=== PATIENT | female | born 1985 | race Caucasian/White ===

== ENCOUNTER 2022-07-01 08:35 | Inpatient (IN) ==
[2022-07-01] MEDS ORDERED: ONDANSETRON INJ 2 MG/ML 2 ML VIAL IV STA ×2 (08:50→11:15)
[2022-07-01] MEDS ORDERED: SODIUM CHLORIDE 0.9% 1000ML 1,000 ML IV STA (08:50)
[2022-07-01] MEDS: fentaNYL citrate 100 MCG/2 ML VIAL IV PRN ×2 (08:56→09:40)
--- NOTE | 2022-07-01 08:57 | Emergency Department Note ---
Impression & Plan Acute calculous cholecystitis, Right upper quadrant abdominal pain ED Provider Note NAME: FELICITA ENG AGE: 36 SEX: F : 1985 ARRIVES VIA: Walk-In INFORMANT: Patient, ED PROVIDER(S): Dudley Pascal DO CHIEF COMPLAINT: Abdominal pain HPI: The patient is a 36-year-old female who presented to the emergency department for an evaluation of abdominal pain. The patient has been having problems with abdominal pain intermittently over the course of the last month. She states that normally she gets this same pain in the upper abdomen and last approximately 1 hour. She started having the same pain last evening. She started having nausea and vomiting. The pain did not resolve in usual fashion so she presented to the emergency department today for further evaluation. She denies having any fevers. She denies having hematemesis. She has had no rectal bleeding. She states that she has noted the pain radiating to her back as well. ROS: See above HPI for pertinent positives & negatives. A total of 10 systems reviewed and were otherwise negative. PAST MEDICAL HISTORY: See Below PAST SURGICAL HISTORY: See Below FAMILY HISTORY: See Below SOCIAL HISTORY: See Below HOME MEDICATIONS: See Below ALLERGIES: See Below VITALS: See Below PHYSICAL EXAMINATION: GENERAL: The patient is awake and alert. She is very anxious appearing and appears to be in significant pain. EYES: The conjunctivae are clear. The pupils are round and reactive. EARS, NOSE, MOUTH AND THROAT: The nose is without any evidence of any deformity. NECK: The neck is nontender and supple. RESPIRATORY: Normal respiratory effort is noted there is no evidence of wheezing rhonchi or rales CARDIOVASCULAR: Regular rate and rhythm noted there no murmurs rubs or gallops normal S1 normal S2. GASTROINTESTINAL: The abdomen is mildly distended. The abdomen is soft. There is significant right upper quadrant tenderness to palpation. There is guarding in the right upper quadrant. MUSCULOSKELETAL/EXTREMITIES: There is no evidence of gross deformity full range of motion is noted in the hips and shoulders. SKIN: There is no obvious evidence of any rash. There are no petechiae, pallor or cyanosis noted. NEUROLOGIC: Patient is awake alert and oriented x3 MEDICAL DECISION MAKING: Patient is a 36-year-old female who presented to the emergency department for an evaluation of upper abdominal pain. The patient's had similar symptoms over the course the last few weeks but today was much more significant and did not resolve as the previous episodes did. Her history and physical exam appear to be consistent with gallbladder pathology. I discussed the patient's laboratory and radiographic studies with her. She was treated with IV fluids IV antiemetics and IV pain medication. She was somewhat improved on reevaluation. She was also treated with IV antibiotics after ultrasound appears to be consistent with calculus cholecystitis. I discussed the patient's condition with the on-call general surgical group. They have agreed to evaluate the patient in the emergency department for further management and disposition. Triage Nursing notes reviewed. Prior medical records reviewed Vital Signs: reviewed and remarkable for no significant abnormalities Differential diagnosis: Etiologies such as appendicitis, diverticulitis, obstruction, inflammatory bowel disease, renal colic, PUD, biliary pathology, pancreatitis, mesenteric ischemia, aortic pathology, infections, genitourinary, UTI, perforated viscus, as well as others were entertained. ER treatment provided: See below Diagnostics interpreted by me: ECG: none Cardiac Monitoring: An order was placed for continuous cardiac monitoring. The monitor shows a rate of 84 bpm with sinus rhythm. Laboratory studies: As stated above and show below. Imaging studies: See below. Radiographic imaging was reviewed by myself Consultation(s): I discussed this case with Katelin Martinez who is on-call for the general surgical group. They will evaluate the patient in the emergency department. Past Med/Surg History Medical History (Updated 07/01/22 @ 15:09 by Dudley Pascal DO) No pertinent past medical history Surgical History (Updated 07/01/22 @ 13:14 by Percy Saba MD) No significant past surgical history Social History Smoking Status: Current every day smoker Preferred Language: Upper Sorbian Feels Safe at Home: Yes Allergies Allergies Allergy/AdvReac Type Severity Reaction Status Date / Time No Known Allergies Allergy Verified 01/29/19 17:41 Home Meds Home Medications Medication Instructions Recorded Confirmed ibuprofen 200 mg tablet (Advil) 800 mg PO Q8H PRN Fever Or Pain 01/29/19 01/29/19 Previous Rx's Medication Instructions Recorded cyclobenzaprine 10 mg tablet 10 mg PO TID PRN muscle spasm #15 01/29/19 tabs hydrocodone 5 mg-acetaminophen 325 1 tab PO Q4H PRN pain #15 tabs 01/29/19 mg tablet ([place]) methylprednisolone 4 mg tablets in 4 mg PO UD #21 ea 01/29/19 a dose pack ([facility] ([place])) Results & Data (ED) Vital Signs Vital Signs - 24 hr 07/01/22 08:36 07/01/22 09:02 07/01/22 09:13 Temperature 36.2 C L Temperature Source Temporal Artery Scan Pulse Rate 89 74 Pulse Rate [Apical] Pulse Rate [Left Finger] Pulse Rhythm [Left Finger] Pulse Strength [Left Finger] Respiratory Rate 22 Respiratory Effort / Characteristics Non-Labored Spontaneous Respiratory Depth Normal Respiratory Pattern Blood Pressure 122/73 Blood Pressure [Left Arm] Blood Pressure [Right Arm] Blood Pressure Mean 89 Blood Pressure Mean [Left Arm] Blood Pressure Mean [Right Arm] Blood Pressure Position [Right Arm] Pulse Oximetry 99 99 Oxygen Delivery Method Room Air Room Air Sepsis New/Unexplained Change in Mental Status N/A Sepsis Action Taken by Nursing No Action Required 07/01/22 11:26 07/01/22 12:38 07/01/22 12:55 Temperature 37 C Temperature Source Oral Pulse Rate Pulse Rate [Apical] 68 72 Pulse Rate [Left Finger] 87 Pulse Rhythm [Left Finger] Regular Pulse Strength [Left Finger] Normal Respiratory Rate 16 16 20 Respiratory Effort / Characteristics Non-Labored Spontaneous Non-Labored Spontaneous Non-Labored Spontaneous Respiratory Depth Normal Normal Normal Respiratory Pattern Regular Blood Pressure Blood Pressure [Left Arm] 100/75 110/66 Blood Pressure [Right Arm] 131/73 Blood Pressure Mean Blood Pressure Mean [Left Arm] 83 80 Blood Pressure Mean [Right Arm] 92 Blood Pressure Position [Right Arm] Sitting Pulse Oximetry 98 98 94 Oxygen Delivery Method Room Air Room Air Room Air Sepsis New/Unexplained Change in Mental Status Sepsis Action Taken by Nursing 07/01/22 13:57 Temperature Temperature Source Pulse Rate Pulse Rate [Apical] Pulse Rate [Left Finger] 84 Pulse Rhythm [Left Finger] Regular Pulse Strength [Left Finger] Normal Respiratory Rate 22 Respiratory Effort / Characteristics Non-Labored Spontaneous Respiratory Depth Normal Respiratory Pattern Regular Blood Pressure Blood Pressure [Left Arm] Blood Pressure [Right Arm] 120/69 Blood Pressure Mean Blood Pressure Mean [Left Arm] Blood Pressure Mean [Right Arm] 86 Blood Pressure Position [Right Arm] Semi-fowlers Pulse Oximetry 98 Oxygen Delivery Method Room Air Sepsis New/Unexplained Change in Mental Status Sepsis Action Taken by [facility] Medications Current Medication List: was personally reviewed by me Laboratory Data Attestation: I reviewed the patient's lab results. 07/01/22 08:58 07/01/22 08:58 Lab Results 07/01/22 07/01/22 07/01/22 Range/Units 08:58 08:58 08:58 WBC 14.57 H (4.8-10.8) K/ul RBC 5.34 (4.20-5.40) M/uL Hgb 16.2 H (12.0-16.0) g/dl Hct 47.4 H (37.0-47.0) % MCV 88.8 (80.0-100.0) fL MCH 30.3 (25.0-34.0) pg MCHC 34.2 (32.0-36.0) g/dL RDW Std Deviation 41.3 (36.4-46.3) fL RDW Coeff of Leandro 12.7 (11.5-14.5) % Plt Count 344 (130-400) K/uL MPV 10.3 (9.4-12.4) fL Immature Gran % (Auto) 0.3 % Neut % (Auto) 76.8 % Lymph % (Auto) 17.5 % Hopkins % (Auto) 4.0 % Eos % (Auto) 0.9 % Baso % (Auto) 0.5 % Neut # (Auto) 11.20 H (1.40-6.50) K/uL Lymph # (Auto) 2.55 (1.2-3.4) K/uL Hopkins # (Auto) 0.58 (0.11-0.59) K/uL Eos # (Auto) 0.13 (0-0.50) K/uL Baso # (Auto) 0.07 (0-0.2) K/uL Immature Gran # (Auto) 0.04 (0.01-0.20) K/uL Sodium 137 (136-145) mmol/L Potassium 3.9 (3.5-5.1) mmol/L Chloride 106 (98-107) mmol/L Carbon Dioxide 26 (21-32) mmol/L Anion Gap 5 (3-11) BUN 7 (6-23) mg/dl Creatinine 0.73 (0.6-1.2) mg/dl Est Cr Clr Drug Dosing 114.3 ml/min Est GFR ( Amer) 121.9 ml/min Est GFR (Non-Af Amer) 105.2 ml/min BUN/Creatinine Ratio 9.6 L (10-20) Glucose 122 H (70-99(Fasting)) mg/dl Calcium 10.2 H (8.5-10.1) mg/dl Total Bilirubin 0.6 (0.2-1.0) mg/dl AST 15 (13-39) U/L ALT 21 (7-52) U/L Alkaline Phosphatase 132 H (34-104) U/L Total Protein 7.7 (6.0-8.3) gm/dl Albumin 4.5 (3.4-5.0) gm/dl Globulin 3.2 (2.5-4.0) gm/dl Albumin/Globulin Ratio 1.4 (0.9-2) Lipase 8 L (11-82) U/L HCG, Qual Negative (Negative) SARS-CoV-2, RNA, NAAT (NEGATIVE) 07/01/22 Range/Units 10:55 WBC (4.8-10.8) K/ul RBC (4.20-5.40) M/uL Hgb (12.0-16.0) g/dl Hct (37.0-47.0) % MCV (80.0-100.0) fL MCH (25.0-34.0) pg MCHC (32.0-36.0) g/dL RDW Std Deviation (36.4-46.3) fL RDW Coeff of Leandro (11.5-14.5) % Plt Count (130-400) K/uL MPV (9.4-12.4) fL Immature Gran % (Auto) % Neut % (Auto) % Lymph % (Auto) % Hopkins % (Auto) % Eos % (Auto) % Baso % (Auto) % Neut # (Auto) (1.40-6.50) K/uL Lymph # (Auto) (1.2-3.4) K/uL Hopkins # (Auto) (0.11-0.59) K/uL Eos # (Auto) (0-0.50) K/uL Baso # (Auto) (0-0.2) K/uL Immature Gran # (Auto) (0.01-0.20) K/uL Sodium (136-145) mmol/L Potassium (3.5-5.1) mmol/L Chloride (98-107) mmol/L Carbon Dioxide (21-32) mmol/L Anion Gap (3-11) BUN (6-23) mg/dl Creatinine (0.6-1.2) mg/dl Est Cr Clr Drug Dosing ml/min Est GFR ( Amer) ml/min Est GFR (Non-Af Amer) ml/min BUN/Creatinine Ratio (10-20) Glucose (70-99(Fasting)) mg/dl Calcium (8.5-10.1) mg/dl Total Bilirubin (0.2-1.0) mg/dl AST (13-39) U/L ALT (7-52) U/L Alkaline Phosphatase (34-104) U/L Total Protein (6.0-8.3) gm/dl Albumin (3.4-5.0) gm/dl Globulin (2.5-4.0) gm/dl Albumin/Globulin Ratio (0.9-2) Lipase (11-82) U/L HCG, Qual (Negative) SARS-CoV-2, RNA, NAAT NEGATIVE (NEGATIVE) Administered Medications Fentanyl Citrate (Fentanyl Citrate 100 Mcg/2 Ml Vial) 50 mcg IV Q15M PRN PRN Reason: Pain Stop: 07/15/22 08:49 Last Admin: 07/01/22 09:40 Dose: 50 mcg Documented By: Admin: 07/01/22 08:56 Dose: 50 mcg Documented By: PRATIK Hydromorphone HCl (Hydromorphone Inj 0.5 Mg/0.5 Ml Syr) 0.5 mg IV Q15M PRN PRN Reason: Pain Stop: 07/15/22 10:45 Last Admin: 07/01/22 12:00 Dose: 0.5 mg Documented By: Admin: 07/01/22 10:53 Dose: 0.5 mg Documented By: NMS Discontinued Medications Hydromorphone HCl (Hydromorphone Inj 0.5 Mg/0.5 Ml Syr) 0.5 mg IV NOW STA Stop: 07/01/22 13:48 Last Admin: 07/01/22 13:48 Dose: 0.5 mg Documented By: MG Sodium Chloride (Nss 1000ml) 1,000 mls @ 999 mls/hr IV .Q1H1M STA Stop: 07/01/22 09:50 Last Infusion: 07/01/22 10:11 Dose: 0 mls/hr Documented By: Admin: 07/01/22 08:56 Dose: 999 mls/hr Documented By: PRATIK Piperacillin Sod/Tazobactam Sod (Zosyn) 4.5 gm in 120 mls @ 240 mls/hr IV NOW ONE Stop: 07/01/22 11:16 Last Infusion: 07/01/22 11:26 Dose: 0 mls/hr Documented By: Admin: 07/01/22 10:53 Dose: 240 mls/hr Documented By: DORINDA Ondansetron HCl (Ondansetron Inj 2 Mg/Ml 2 Ml Vial) 4 mg IV NOW STA Stop: 07/01/22 08:51 Last Admin: 07/01/22 08:56 Dose: 4 mg Documented By: PRATIK Ondansetron HCl (Ondansetron Inj 2 Mg/Ml 2 Ml Vial) 4 mg IV NOW STA Stop: 07/01/22 11:16 Last Admin: 07/01/22 11:27 Dose: 4 mg Documented By: DORINDA Imaging Data Attestation: I personally reviewed and interpreted this imaging study as follows: My Impression: 1 view chest x-ray and KUB were obtained in the emergency department. My interpretation is no free air, no definite infiltrate, final report pending. Radiologist's Impression: Chest X-Ray 07/01/22 08:50 SINGLE VIEW CHEST CLINICAL HISTORY: Upper abdominal pain. FINDINGS: An AP, portable, upright chest radiograph is obtained. No prior studies are available for comparison at the time of dictation. The cardiomedia stinal silhouette is unremarkable. The lungs and pleural spaces are clear. No pneumothorax is seen. The bony thorax is grossly intact. IMPRESSION: No active disease in the chest. ACT 112: Negative or not required by law. Electronically signed by: Nathan Jay M.D. 07/01/2022 9:44 AM Gallbladder Ultrasound 07/01/22 08:50 ULTRASOUND RIGHT UPPER QUADRANT ABDOMEN CLINICAL HISTORY: Upper abdominal pain. COMPARISON STUDY: Abdominal radiograph dated 07/01/2022. TECHNIQUE: Real-time, grayscale, and color flow sonography of the right upper quadrant of the abdomen was performed. Images are reviewed in the transverse and longitudinal planes. FINDINGS: Liver: The liver is normal in size and echotexture. There is no intrahepatic biliary ductal dilatation. The main portal vein is patent. Gallbladder: There are numerous shadowing gallstones, with the largest stone measuring up to 1.6 cm. The gallbladder wall is top normal in thickness measuring up to 3 mm and the gallbladder is distended. No pericholecystic fluid is seen. A sonographic Chavez's sign is reportedly present. The common bile duct measures up to 0.4 cm in diameter. Pancreas: Visualized portions of the pancreatic head and body are normal in appearance. The splenic vein is patent. Right kidney: Survey images of the right kidney demonstrate normal size and echotexture. There is no hydronephrosis. Ascites: None. IMPRESSION: Cholelithiasis within a distended gallbladder. A sonographic Chavez's sign is reportedly positive and findings are suspicious for acute cholecystitis. Surgical assessment is advised. ACT 112: Negative or not required by law. Electronically signed by: Nathan Jay M.D. 07/01/2022 10:43 AM KUB X-Ray 07/01/22 08:50 KUB HISTORY: Acute right upper quadrant abdominal pain upper abd pain COMPARISON: None. FINDINGS: The bowel gas pattern is non-obstructive. Probable pill fragment within the descending colon. There is no organomegaly. No renal calculi. No ureteral calculi. No pneumoperitoneum or pneumatosis. No fracture. IMPRESSION: Nonobstructive bowel gas pattern. ACT 112: Negative or not required by law. The above report was generated using voice recognition software. It may contain grammatical, syntax or spelling errors. Electronically signed by: Shane Ibanez M.D. 07/01/2022 9:50 AM Discharge Plan Visit Data Chief Complaint: Pain (Generalized) Stated Complaint: ABD PAIN, SHOULDER BLADE PAIN, VOMITING ED Provider: Dudley Pascal Discharge Problem: Acute calculous cholecystitis, Right upper quadrant abdominal pain Patient Disposition: Being Evaluated by Surgeon Discharge Instructions Interventions: ED Discharge Assessment Last Done: 07/01/22 12:45
[2022-07-01 09:20] LABS: Basophils # (auto) 0.07 K/uL (0-0.2); Basophils % (auto) 0.5 %; Eosinophils # (auto) 0.13 K/uL (0-0.50); Eosinophils % (auto) 0.9 %; Hematocrit (blood only) 47.4 % (37.0-47.0); Hemoglobin 16.2 g/dl (12.0-16.0); Immature Granulocytes # (auto) 0.04 K/uL (0.01-0.20); Immature Granulocytes % (auto) 0.3 %; Lymphocytes # (auto) 2.55 K/uL (1.2-3.4); Lymphocytes % (auto) 17.5 %; Mean Corpuscular Hemoglobin 30.3 pg (25.0-34.0); Mean Corpuscular Hgb Conc 34.2 g/dL (32.0-36.0); Mean Corpuscular Volume 88.8 fL (80.0-100.0); Mean Platelet Volume 10.3 fL (9.4-12.4); Monocytes # (auto) 0.58 K/uL (0.11-0.59); Neutrophils % (auto) 76.8 %; Platelet Count 344 K/uL (130-400); RDW Coefficient of Variation 12.7 % (11.5-14.5); RDW Standard Deviation 41.3 fL (36.4-46.3); Red Blood Count 5.34 M/uL (4.20-5.40); White Blood Count 14.57 K/ul (4.8-10.8)
[2022-07-01 09:41] LABS: Pregnancy Test, Serum Negative (Negative)
[2022-07-01 09:44] LABS: Albumin Globulin Ratio 1.4 (0.9-2); Albumin Level 4.5 gm/dl (3.4-5.0); BUN Creatinine Ratio 9.6 (10-20); Bilirubin,Total 0.6 mg/dl (0.2-1.0); Calcium 10.2 mg/dl (8.5-10.1); Creatinine Clr Calc Pharmacy 114.3 ml/min; Est GFR (African American) 121.9 ml/min; Est GFR (Non-African American) 105.2 ml/min; Globulin 3.2 gm/dl (2.5-4.0); Potassium 3.9 mmol/L (3.5-5.1); Total Protein 7.7 gm/dl (6.0-8.3)
--- NOTE | 2022-07-01 09:46 | XRay Report ---
SINGLE VIEW CHEST CLINICAL HISTORY: Upper abdominal pain. FINDINGS: An AP, portable, upright chest radiograph is obtained. No prior studies are available for c omparison at the time of dictation. The cardiomediastinal silhouette is unremarkable. The lungs and p leural spaces are clear. No pneumothorax is seen. The bony thorax is grossly intact. IMPRESSION: No active disease in the chest. ACT 112: Negative or not required by law. Electronically signed by: Nathan Jay M.D. 07/01/2022 9:44 AM
--- NOTE | 2022-07-01 09:52 | XRay Report ---
KUB HISTORY: Acute right upper quadrant abdominal pain upper abd pain COMPARISON: None. FINDINGS: The bowel gas pattern is non-obstructive. Probable pill fragment within the descending colo n. There is no organomegaly. No renal calculi. No ureteral calculi. No pneumoperitoneum or pneumatos is. No fracture. IMPRESSION: Nonobstructive bowel gas pattern. ACT 112: Negative or not required by law. The above report was generated using voice recognition software. It may contain grammatical, syntax o r spelling errors. Electronically signed by: Shane Ibanez M.D. 07/01/2022 9:50 AM
--- NOTE | 2022-07-01 10:44 | Ultrasound Report ---
ULTRASOUND RIGHT UPPER QUADRANT ABDOMEN CLINICAL HISTORY: Upper abdominal pain. COMPARISON STUDY: Abdominal radiograph dated 07/01/2022. TECHNIQUE: Real-time, grayscale, and color flow sonography of the right upper quadrant of the abdomen was performed. Images are reviewed in the transverse and longitudinal planes. FINDINGS: Liver: The liver is normal in size and echotexture. There is no intrahepatic biliary ductal dilatatio n. The main portal vein is patent. Gallbladder: There are numerous shadowing gallstones, with the largest stone measuring up to 1.6 cm. The gallbladder wall is top normal in thickness measuring up to 3 mm and the gallbladder is distended . No pericholecystic fluid is seen. A sonographic Chavez's sign is reportedly present. The common geremias e duct measures up to 0.4 cm in diameter. Pancreas: Visualized portions of the pancreatic head and body are normal in appearance. The splenic v ein is patent. Right kidney: Survey images of the right kidney demonstrate normal size and echotexture. There is no hydronephrosis. Ascites: None. IMPRESSION: Cholelithiasis within a distended gallbladder. A sonographic Chavez's sign is reportedl y positive and findings are suspicious for acute cholecystitis. Surgical assessment is advised. ACT 112: Negative or not required by law. Electronically signed by: Nathan Jay M.D. 07/01/2022 10:43 AM
[2022-07-01] MEDS ORDERED: PIPERACILLIN/TAZOBACTAM 4.5 GM/120 ML BAG IV ONE (10:47)
[2022-07-01] MEDS: HYDROmorphone INJ 0.5 MG/0.5 ML SYR IV PRN ×2 (10:53→12:00)
[2022-07-01] MEDS ORDERED: ONDANSETRON INJ 2 MG/ML 2 ML VIAL ONE ×2 (12:54→15:03)
[2022-07-01] MEDS ORDERED: MIDAZOLAM HCL 1 MG/ML 2ML VIAL ONE (12:54)
[2022-07-01] MEDS ORDERED: PROPOFOL IV EMULSION 10 MG/ML 20 ML VIAL IV ONE (12:54)
[2022-07-01] MEDS ORDERED: DEXAMETHASONE SOD INJ 4 MG/ML VIAL ONE (12:54)
[2022-07-01] MEDS ORDERED: NEOSTIGMINE METHYLSULFATE 1 MG/ML 10ML VIAL ONE (12:54)
[2022-07-01] MEDS ORDERED: fentaNYL citrate 100 MCG/2 ML VIAL ONE (12:54)
[2022-07-01] MEDS ORDERED: GLYCOPYRROLATE 0.2 MG/ML VIAL ONE ×2 (12:54→15:03)
[2022-07-01] MEDS ORDERED: ROCURONIUM BROMIDE 10 MG/ML 5 ML VIAL IV ONE (12:55)
[2022-07-01] MEDS ORDERED: LIDOCAINE 2% MPF LOCAL 5 ML VIAL INFIL ONE (12:55)
[2022-07-01] MEDS ORDERED: LARYING-O-JET KIT (LTA) ONE (12:55)
--- NOTE | 2022-07-01 13:14 | Anesthesiology Consultation ---
Date of Service July 01, 2022 Assessment & Plan (1) Encounter for pre-operative examination: Chart Review Chart Review: Acceptable Risk for Surgery History Surgery Operation Date: 07/01/22 14:00 Proposed Procedures p Laparoscopic Cholecystectomy - Jessica Briceno MD Height/Weight Height: 5 ft 7 in Weight: 79.2 kg Allergies Allergy/AdvReac Type Severity Reaction Status Date / Time No Known Allergies Allergy Verified 01/29/19 17:41 Medications Home Medications Medication Instructions Recorded Confirmed Last Taken cyclobenzaprine 10 mg tablet 10 mg PO TID PRN muscle spasm #15 01/29/19 Unknown tabs hydrocodone 5 mg-acetaminophen 325 1 tab PO Q4H PRN pain #15 tabs 01/29/19 Unknown mg tablet ([place]) ibuprofen 200 mg tablet (Advil) 800 mg PO Q8H PRN Fever Or Pain 01/29/19 01/29/19 Unknown methylprednisolone 4 mg tablets in 4 mg PO UD #21 ea 01/29/19 Unknown a dose pack ([employer] ([place])) Active Medications Generic Name Dose Route Start Last Admin Trade Name Freq PRN Reason Stop Dose Admin Fentanyl Citrate 50 mcg 07/01/22 08:50 07/01/22 09:40 Fentanyl Citrate 100 Mcg/2 Ml Vial IV 07/15/22 08:49 50 mcg Q15M PRN Administration Pain Hydromorphone HCl 0.5 mg 07/01/22 10:46 07/01/22 12:00 Hydromorphone Inj 0.5 Mg/0.5 Ml Syr IV 07/15/22 10:45 0.5 mg Q15M PRN Administration Pain NPO Date Last Intake of Fluids: 06/30/22 Time Last Intake of Fluids: 23:45 Date Last Intake of Solids: 06/30/22 Time Last Intake of Solids: 17:00 Past Medical History Medical History (Updated 07/01/22 @ 13:14 by Percy Saba MD) No pertinent past medical history Past Surgical History Surgical History (Updated 07/01/22 @ 13:14 by Percy Saba MD) No significant past surgical history Social History Smoking Status: Current every day smoker Physical Exam Vital Signs Last Vital Signs Temp 37 C 07/01/22 12:55 Pulse 87 07/01/22 12:55 Resp 20 07/01/22 12:55 BP 131/73 07/01/22 12:55 Pulse Ox 94 07/01/22 12:55 O2 Del Method Room Air 07/01/22 12:55 Testing Laboratory Results 07/01/22 08:58 07/01/22 08:58
--- NOTE | 2022-07-01 13:46 | Surgery Consultation ---
Date of Consultation July 01, 2022 Assessment & Plan (1) Acute cholecystitis due to biliary calculus: pt is a 36 year-old female who presents to ER with RUQ pain, IMP: acute cholecystitis, cholelithiasis, plan, I recommend to do laparoscopic cholecystectomy, possible open or cholangiogram, D/W benefits, risks and alternatives of the surgery, the risks - infection, bleeding, injury other organs, biliary leak, may need ERCP, incisional hernia, pt understood, she agreed with surgery, she signed informed consent, I answered all questions, pre-op iv antibiotic, History of Present Illness Reason for Consultation: acute cholecystitis History of Present Illness [facility], [id number] Emergency Department Note Signed History of Present Illness General Chief complaint: Back Injury/Pain Stated complaint: BACK PAIN History of Present Illness Maximum Pain Intensity: 5 This patient is a 33-year-old female who presents ambulatory to the emergency department for evaluation of low back pain that occurred yesterday. Patient was shaving her legs and bending over when she felt intense pain in her lower back. The pain is sharp, stabbing in nature. It does not radiate anywhere. She denies any numbness, tingling or weakness into her extremities. No new urinary or bowel incontinence. No history of back problems. The patient has tried ibuprofen with minimal pain relief. I ( Jessica Briceno MD ) got a call for consult acute cholecystitis and gallstone, I reviewed pt's H/P, labs U/S study with pt. Home Medications Home Medications Medication Instructions Recorded Confirmed Type cyclobenzaprine 10 mg PO TID PRN #15 tab 01/29/19 Rx hydrocodone-acetaminophen [[place]] 1 tab PO Q4H PRN #15 tab 01/29/19 Rx ibuprofen [Advil] 800 mg PO Q8H PRN 01/29/19 01/29/19 History methylprednisolone [Medrol (Geo)] 4 mg PO UD #21 ea 01/29/19 Rx Allergies Allergy/AdvReac Type Severity Reaction Status Date / Time No Known Allergies Allergy Verified 01/29/19 17:41 Past Med/Surg History Medical History No pertinent past medical history Social History Feels Safe at Home: Yes Smoking Status: Current some day smoker Review of Systems A total of 6 systems reviewed and were otherwise negative Allergies Allergy/AdvReac Type Severity Reaction Status Date / Time No Known Allergies Allergy Verified 01/29/19 17:41 Home Medications Medication Instructions Recorded Confirmed Type cyclobenzaprine 10 mg tablet 10 mg PO TID PRN muscle spasm #15 01/29/19 Rx tabs hydrocodone 5 mg-acetaminophen 325 1 tab PO Q4H PRN pain #15 tabs 01/29/19 Rx mg tablet ([place]us[place]) ibuprofen 200 mg tablet (Advil) 800 mg PO Q8H PRN Fever Or Pain 01/29/19 01/29/19 History methylprednisolone 4 mg tablets in 4 mg PO UD #21 ea 01/29/19 Rx a dose pack (Medrol (Geo)) Patient History Medical History (Updated 07/01/22 @ 13:48 by Jessica Briceno MD) No pertinent past medical history Surgical History (Updated 07/01/22 @ 13:14 by Percy Saba MD) No significant past surgical history Social History Smoking Status: Current every day smoker Preferred Language: American Feels Safe at Home: Yes Review of Systems Constitutional: as per Subjective / HPI Eyes: as per Subjective / HPI Respiratory: as per Subjective / HPI Cardiovascular: as per Subjective / HPI Gastrointestinal: as per Subjective / HPI Genitourinary: as per Subjective / HPI Neurologic: as per Subjective / HPI Psychiatric: as per Subjective / HPI Endocrine: as per Subjective / HPI Hematologic / Lymphatic: as per Subjective / HPI Physical Exam Constitutional: WD/WN, vitals as above Eyes: PERRL, conjunctivae normal, anicteric sclerae Neck: trachea midline, no thyromegaly Respiratory: normal respiratory effort, lungs clear to auscultation Cardiovascular: RRR, no murmur, no edema Gastrointestinal (Abdomen): soft, tenderness at RUQ, no rebound pain, no distend, BS +, Musculoskeletal: no cyanosis or clubbing, extremities motor strength 5/5 Neurologic: patellar DTR's 2+ bilat, sensation intact Psychiatric: A+Ox3, euthymic affect Results & Data ([facility]) Vital Signs (Past 12 Hours) Vital Signs Temp Pulse Pulse Pulse Resp BP BP 07/01/22 12:55 37 C 87 20 07/01/22 12:38 72 16 110/66 07/01/22 11:26 68 16 100/75 07/01/22 09:13 74 07/01/22 09:02 07/01/22 08:36 36.2 C L 89 22 122/73 BP Pulse Ox O2 Del Method 07/01/22 12:55 131/73 94 Room Air 07/01/22 12:38 98 Room Air 07/01/22 11:26 98 Room Air 07/01/22 09:13 07/01/22 09:02 99 Room Air 07/01/22 08:36 99 Room Air Laboratory Results Abnormal lab results 07/01/22 07/01/22 Range/Units 08:58 08:58 WBC 14.57 H (4.8-10.8) K/ul Hgb 16.2 H (12.0-16.0) g/dl Hct 47.4 H (37.0-47.0) % Neut # (Auto) 11.20 H (1.40-6.50) K/uL BUN/Creatinine Ratio 9.6 L (10-20) Glucose 122 H (70-99(Fasting)) mg/dl Calcium 10.2 H (8.5-10.1) mg/dl Alkaline Phosphatase 132 H (34-104) U/L Lipase 8 L (11-82) U/L Diagnostic Findings ULTRASOUND RIGHT UPPER QUADRANT ABDOMEN CLINICAL HISTORY: Upper abdominal pain. COMPARISON STUDY: Abdominal radiograph dated 07/01/2022. TECHNIQUE: Real-time, grayscale, and color flow sonography of the right upper quadrant of the abdomen was performed. Images are reviewed in the transverse and longitudinal planes. FINDINGS: Liver: The liver is normal in size and echotexture. There is no intrahepatic biliary ductal dilatation. The main portal vein is patent. Gallbladder: There are numerous shadowing gallstones, with the largest stone measuring up to 1.6 cm. The gallbladder wall is top normal in thickness measuring up to 3 mm and the gallbladder is distended. No pericholecystic fluid is seen. A sonographic Chavez's sign is reportedly present. The common bile duct measures up to 0.4 cm in diameter. Pancreas: Visualized portions of the pancreatic head and body are normal in appearance. The splenic vein is patent. Right kidney: Survey images of the right kidney demonstrate normal size and echotexture. There is no hydronephrosis. Ascites: None. IMPRESSION: Cholelithiasis within a distended gallbladder. A sonographic Chavez's sign is reportedly positive and findings are suspicious for acute cholecystitis. Surgical assessment is advised. ACT 112: Negative or not required by law.
[2022-07-01] MEDS ORDERED: HYDROmorphone INJ 0.5 MG/0.5 ML SYR IV STA (13:47)
--- NOTE | 2022-07-01 13:51 | History & Physical Bridge Note ---
Date of Service July 01, 2022 History & Physical Bridge Note I have examined the patient, reviewed the History & Physical and in the interval since the performance of the History & Physical I have noted the following changes of clinical significance: no changes noted
[2022-07-01] MEDS ORDERED: BUPIVACAINE 0.5 % 5 MG/1 ML MPF 30ML VIAL ONE (13:59)
[2022-07-01] MEDS ORDERED: LIDOCAINE 1% LOCAL 20 ML VIAL ONE (13:59)
[2022-07-01] MEDS ORDERED: KETOROLAC 30 MG/ML VIAL ONE (15:03)
[2022-07-01] MEDS ORDERED: HYDROmorphone INJ 2 MG/ML SYR/VIAL IV PRN (15:13)
[2022-07-01] MEDS ORDERED: ePHEDrine sulfate 50 MG/ML AMP IV PRN (15:13)
[2022-07-01] MEDS ORDERED: ATROPINE SULFATE 0.1 MG/ML 10ML SYR IV PRN (15:13)
[2022-07-01] MEDS ORDERED: ONDANSETRON INJ 2 MG/ML 2 ML VIAL IV PRN (15:13)
--- NOTE | 2022-07-01 15:20 | Post Operative Brief Note ---
Immediate Post Op Note v1 Date of Surgery July 01, 2022 Pre & Post Diagnosis Operation Date: 07/01/22 14:00 Pre-Op Diagnosis: acute cholecystitis, cholelithiasis Post-Op Diagnosis: acute cholecystitis, cholelithiasis I identified the patient and participated in the time-out.: Yes Procedure Operation Date: 07/01/22 14:00 Actual Procedures p Laparoscopic Cholecystectomy(Not Applicable) - Jessica Briceno MD Surgeon Jessica Briceno MD [employer] [place] Estimated Blood Loss 10 Findings Consistent with Post-Op Diagnosis Fluids 1500ml Specimens gallbladder Anesthesia Type General Complications none Disposition Accompanied Patient To Recovery: Yes
[2022-07-01] MEDS ORDERED: CYCLOBENZAPRINE HCL 10 MG TAB PO PRN (16:51)
[2022-07-01] MEDS ORDERED: IBUPROFEN 800 MG TAB PO PRN (16:51)
[2022-07-01] MEDS ORDERED: HYDROCODONE/ACETAMOPHEN 5/325MG TAB PO PRN ×2 (16:51→18:41)
[2022-07-01] MEDS ORDERED: HYDROmorphone INJ 0.5 MG/0.5 ML SYR IV PRN (16:51)
[2022-07-01] MEDS ORDERED: oxyCODONE/ACETAMINOPHEN 5mg/325mg TAB PO PRN (16:51)
[2022-07-01] MEDS: LACTATED RINGER'S 1,000 ML IV SCH (17:27)
[2022-07-01] MEDS ORDERED: methylPREDNISolone 4 MG TAB PO SCH ×2 (18:00→21:00)
[2022-07-01] MEDS: PIPERACILLIN/TAZOBACTAM 3.375 GM in DEXTROSE 5% 100 ML IV SCH (18:20)
--- NOTE | 2022-07-01 20:05 | Anesthesiology Progress Note ---
Date of Service July 01, 2022 Anesthesia Post Procedure Vital Signs Vital Signs: Temp Pulse Pulse Pulse Pulse Resp BP 07/01/22 18:55 36.8 C 74 16 07/01/22 17:45 36.9 C 70 16 07/01/22 17:15 36.8 C 75 16 07/01/22 16:45 37 C 86 16 07/01/22 16:40 85 20 07/01/22 16:30 77 16 07/01/22 16:20 36.2 C L 74 14 07/01/22 16:10 75 12 07/01/22 16:00 84 14 07/01/22 15:50 86 18 07/01/22 15:44 36.0 C L 104 H 16 07/01/22 13:57 84 22 07/01/22 12:55 37 C 87 20 07/01/22 12:38 72 16 07/01/22 11:26 68 16 07/01/22 09:13 74 07/01/22 09:02 07/01/22 08:36 36.2 C L 89 22 122/73 BP BP Pulse Ox O2 Del Method O2 Flow Rate 07/01/22 18:55 121/78 96 Room Air 07/01/22 17:45 114/72 94 Room Air 07/01/22 17:15 131/87 94 Room Air 07/01/22 16:45 126/67 95 Room Air 07/01/22 16:40 121/85 96 Room Air 07/01/22 16:30 130/80 98 Room Air 07/01/22 16:20 105/69 94 Room Air 07/01/22 16:10 104/61 96 Room Air 07/01/22 16:00 109/63 94 Room Air 07/01/22 15:50 127/86 96 Oxymask 6 07/01/22 15:44 126/80 97 Oxymask 9 07/01/22 13:57 120/69 98 Room Air 07/01/22 12:55 131/73 94 Room Air 07/01/22 12:38 110/66 98 Room Air 07/01/22 11:26 100/75 98 Room Air 07/01/22 09:13 07/01/22 09:02 99 Room Air 07/01/22 08:36 99 Room Air Pain Intensity Right Upper Abdomen: Pain Intensity: 3 Transfer of Care Handoff Completed per policy Notes Mental Status: alert / awake / arousable and participated in evaluation Patient Amnestic to Procedure: Yes Nausea / Vomiting: adequately controlled Pain: adequately controlled Airway Patency, RR, SpO2: stable & adequate BP & HR: stable & adequate Hydration State: stable & adequate Anesthetic Complications: no major complications apparent and Pt Satisfied with anesthetic care
--- NOTE | 2022-07-02 00:05 | Operative Report (OR) ---
DATE OF PROCEDURE: 07/01/2022 PREOPERATIVE DIAGNOSES: Acute cholecystitis, cholelithiasis. POSTOPERATIVE DIAGNOSES: Acute cholecystitis, cholelithiasis. OPERATION: Laparoscopic cholecystectomy. SURGEON: Jessica Briceno MD. [employer] FACER: Katelin Dai PA-C. ANESTHESIA: General. ESTIMATED BLOOD LOSS: About 10 mL FINDINGS: Acute cholecystitis, cholelithiasis. COMPLICATIONS: None. INDICATIONS FOR THE PROCEDURE: This is a 36-year-old female who presented with symptomatic acute cho lecystitis with cholelithiasis. I recommended to do laparoscopic cholecystectomy, possible open, pos sible cholangiogram. I did talk to the patient about the benefits, risks, alternate procedure. I in dicated the risks may include, but not limited to, such as bleeding, infection, injury to other organ s, bile leak, may need ERCP, incisional hernia, injury to common bile duct. The patient understands. She signed informed consent and I answered all questions. DETAILS OF PROCEDURE: After we identified the patient and verified the procedure, we brought the pat ient to the OR, put the patient in the supine position on the OR table. The patient received SCD on bilateral legs to prevent DVT. Also, the patient received 3.375 grams of Zosyn IV for prophylactic a ntibiotic. The patient received general anesthesia without difficulty. The abdomen was prepped and draped in routine sterile fashion. After timeout, I injected the local anesthesia by using 1% lidoca ine mixed with 0.5% Marcaine just above the umbilicus. Then, I made a small incision just above umbil icus, opened fascia, opened peritoneum under direct vision, put a Edward trocar in, connected to CO2 to create pneumoperitoneum, flow rate at 6 liters per minute, pressure not more than 14 mmHg. Once we got a nice pneumoperitoneum, we put a camera in, looked around the abdomen. It showed normal finding on the liver; however, the gallbladder showed significant gallbladder wall edema, inflammatio n and distention confirming diagnosis of acute cholecystitis. Once I confirmed the diagnosis, I put another three 5 mm trocars on the right upper quadrant. Once all trocars in, we used a large needle to decompress the gallbladder first. Then, we used the grasper to hold the base of gallbladder, put in the direction to the diaphragm. Another grasper to hold the pouch of gallbladder, put a lateral to explore the triangle of Calot. The cystic duct was identified and mobilized. I put two 10 mm metal clips on the proximal cystic duct, one on the distal cystic duct, then used a scissor for transectio n of cystic duct; rechecked, no active bleeding. Then, the cystic artery was identified and mobilize d. I put two 10 mm metal clips on the proximal cystic artery, one on the distal cystic artery, then used a scissor for transection of cystic artery; rechecked, no active bleeding. Then, we used the Mack vie to take down gallbladder from liver bed; rechecked, no active bleeding, no bile leak from liver b ed. Then, we removed gallbladder through the catch bag. Then, we reinserted the Edward trocar in, c onnected to CO2 to create pneumoperitoneum, again looked around the abdomen, no active bleeding, no b ile leak from liver bed. Then, we removed all trocars under direct vision. No active bleeding from the trocar site. Pneumoperitoneum was released. I closed the umbilical incision fascial layer by us ing 0 Vicryl [id number] x2, closed subcutaneous layer by using 2-0 Vicryl interruptedly, closed skin by using 4-0 Vicryl continuous running, closed the epigastric incision fascial layer by using 0 Vicryl [id number] x2, closed subcutaneous layer by using 2-0 Vicryl interruptedly, closed skin b y using 4-0 Vicryl interruptedly, closed another two 5 mm trocar site of skin only by using 4-0 Vicry l. Then, we put the dressing on. The patient tolerated the procedure well. All instrument, needle and sponge counts were correct x2 at the end of the case. The patient was transferred to the recover y room in stable condition. The specimen was sent to pathology. After the procedure, I did talk to the patient and the patient's family member about the OR finding a nd the procedure we did. Also, I gave them postoperative care instruction, they understand. The imaging assistant, Katelin, was necessary for this procedure. Her role is to hold the camera, retr action and exposure. Job ID: [id number]
[2022-07-02] MEDS ORDERED: HYDROCODONE/ACETAMOPHEN 5/325MG TAB PO PRN (02:00)
[2022-07-02] MEDS: PIPERACILLIN/TAZOBACTAM 3.375 GM in DEXTROSE 5% 100 ML IV SCH (02:23)
[2022-07-02] MEDS: LACTATED RINGER'S 1,000 ML IV SCH (05:07)
[2022-07-02] MEDS ORDERED: methylPREDNISolone 4 MG TAB PO SCH ×2 (07:00→21:00)
[2022-07-02 07:05] VITALS: BP 109/68; PULSE 68; TEMP 98.6; O2SAT 95
[2022-07-02 07:17] LABS: Basophils # (auto) 0.06 K/uL (0-0.2); Basophils % (auto) 0.4 %; Eosinophils # (auto) 0.01 K/uL (0-0.50); Eosinophils % (auto) 0.1 %; Hematocrit (blood only) 41.5 % (37.0-47.0); Hemoglobin 14.3 g/dl (12.0-16.0); Immature Granulocytes # (auto) 0.09 K/uL (0.01-0.20); Immature Granulocytes % (auto) 0.6 %; Lymphocytes # (auto) 1.78 K/uL (1.2-3.4); Mean Corpuscular Hemoglobin 30.8 pg (25.0-34.0); Mean Corpuscular Hgb Conc 34.5 g/dL (32.0-36.0); Mean Corpuscular Volume 89.2 fL (80.0-100.0); Mean Platelet Volume 10.6 fL (9.4-12.4); Monocytes # (auto) 0.49 K/uL (0.11-0.59); Neutrophils # (auto) 13.76 K/uL (1.40-6.50); Neutrophils % (auto) 84.9 %; Platelet Count 339 K/uL (130-400); RDW Coefficient of Variation 12.8 % (11.5-14.5); Red Blood Count 4.65 M/uL (4.20-5.40); White Blood Count 16.19 K/ul (4.8-10.8)
[2022-07-02 07:46] LABS: Albumin Globulin Ratio 1.4 (0.9-2); Albumin Level 3.7 gm/dl (3.4-5.0); BUN Creatinine Ratio 5.6 (10-20); Bilirubin,Total 0.6 mg/dl (0.2-1.0); Creatinine Clr Calc Pharmacy 115.4 ml/min; Globulin 2.6 gm/dl (2.5-4.0); Potassium 3.8 mmol/L (3.5-5.1); Total Protein 6.3 gm/dl (6.0-8.3)
--- NOTE | 2022-07-02 09:36 | Discharge Summary ---
Date of Service July 02, 2022 Admission HPI Per Admitting Provider This patient is a 33-year-old female who presents ambulatory to the emergency department for evaluation of low back pain that occurred yesterday. Patient was shaving her legs and bending over when she felt intense pain in her lower back. The pain is sharp, stabbing in nature. It does not radiate anywhere. She denies any numbness, tingling or weakness into her extremities. No new urinary or bowel incontinence. No history of back problems. The patient has tried ibuprofen with minimal pain relief. I ( Jessica Briceno MD ) got a call for consult acute cholecystitis and gallstone, I reviewed pt's H/P, labs U/S study with pt Principal Diagnosis acute calculous cholecystitis Discharge Exam Constitutional WD/WN, vitals as above cooperative and comfortable; no acute distress and not ill appearing Neck normal visual inspection and trachea midline Respiratory normal respiratory effort, lungs clear to auscultation Cardiovascular RRR, no murmur, no edema Gastrointestinal (Abdomen) Inspection/Auscultation: abdomen normal to inspection, normal bowel sounds and + abdominal surgical incision (clean/dry/intact dressings); abdomen not distended Percussion/Palpation: + abdomen tender (mildly tender at incision sites appropriate postop) and abdomen soft; no guarding, abdomen not rigid and abdomen not firm Skin no rashes, warm and dry no jaundice Psychiatric A+Ox3, euthymic affect Discharge Data Allergies Allergy/AdvReac Type Severity Reaction Status Date / Time No Known Allergies Allergy Verified 01/29/19 17:41 Consultations 07/01/22 10:50 Consult General Surgery Stat Procedures Performed Operation Date: 07/01/22 14:00 Actual Procedures p Laparoscopic Cholecystectomy(Not Applicable) - Jessica Briceno MD Ordered Studies 07/01/22 08:50 US gallbladder Stat Hospital Course (1) Acute cholecystitis due to biliary calculus: Patient was taken to operating room for laparoscopic cholecystectomy by Dr. Briceno. Patient found to have significant cholecystitis and stone at neck of gallbladder. Patient tolerated procedure without difficulty and transferred to recovery then to medical/surgical floor for postop care. Diet advanced as tolerated, Pain management as needed, activity as tolerated. POD # 1 patient evaluated. Afebrile, vss. Postop pain minimal at incisions and controlled. Preoperative pain resolved. Tolerated regular diet. Patient was discharged home on POD # 1 in stable condition. Total Time Total Time Spent Total Time Spent (In Minutes): 30 minutes Total Time Includes: Examination of the Patient, Discharge Planning and Medication Reconciliation Discharge Plan Discharge Items Patient Disposition: Home - Self-Care Reason For Visit: ACUTE CHOLECYSTITIS Discharge Diagnosis: Acute calculous cholecystitis Activity: Per Instructions section Non-emergency contact: Primary Care Provider and Surgeon Call non-emergency contact if: you have any medication questions, your pain is not controlled, your pain is worsening, your pain is unusual for you, your pain is concerning for you, you have a fever, your temperature is above 101, your wound has increased redness, your wound has increased drainage and your wound pain has increased Follow-up/Referrals: Katelin Dai PA-C [Physician Work And Family Life Consultant] - 07/15/22 10:00 am (2 weeks) PCPAISHWARYA [Primary Care Provider] - Diet: Regular Addtl Attending Provider Instructions: Post-Surgical ~Discharge Instructions Activity Recommendations: - lifting limitation: (20 pounds for 4 weeks), - exercise/sex/sports limit: (nonstrenuous for 2 weeks), - driving or machine use limit: (none for 1 week or until pain free and no longer taking narcotic pain medication), - Shower/bathe limit: (may shower beginning ) Diet: - Resume previous diet SPECIAL CARE INSTRUCTIONS: - May shower on . Wash hair and sponge bath around incisions in meantime. On , remove outer dressings and shower. Let water run over area and pat dry. - Leave steri strips on for one week and then remove. - Call the surgeon's office with any questions or concerns - - (ex. temperature higher than 101 degrees F, excessive bleeding or pain). - Would recommend stopping every 2 hours to walk for 5-[address] to [place] to prevent blood clots. Also wear compression stockings or socks during your travel. MEDICATIONS: - Resume previous medications unless instructed otherwise by your surgeon. - May alternate extra strength Tylenol and Ibuprofen as needed for mild to moderate pain -650 mg Tylenol every 6 hours as needed - Ibuprofen 600 mg every 6 hours as needed (take with food) - [place] 1 every 4 hours, as needed for pain FOLLOW UP VISIT: - If not already scheduled, please call the office to schedule a two week follow-up appointment. Office number Pending Studies at Discharge: Yes (gallbladder pathology, will be reviewed at postop visit) Stand-Alone Forms: [facility] Emergency Department, Im portant Visit Information Medications and DC Order Prescriptions: New hydrocodone-acetaminophen 5-325 mg tablet 1 tab PO Q6H PRN (Reason: pain) Qty: 10 0RF Continued ibuprofen [Advil] 200 mg Tablet 800 mg PO Q8H PRN (Reason: Fever Or Pain) cyclobenzaprine 10 mg tablet 10 mg PO TID PRN (Reason: muscle spasm) Qty: 15 0RF methylprednisolone [Medrol (Geo)] 4 mg tablets,dose pack 4 mg PO UD Qty: 21 0RF Discontinued hydrocodone-acetaminophen [[place]] 5-325 mg tablet 1 tab PO Q4H PRN (Reason: pain) Qty: 15 0RF Rx Instructions: Initial Treatment Discharge Orders: Discharge Order (Routine); Ordered 07/02/22 Ordered By: Katelin Saldivar/Other Patient Handouts: Cholecystectomy Dc Admission Data Admit Date/Time: 07/01/22 15:23 Attending Provider: Jessica Briceno Admit Provider: Jessica Briceno Primary Care Provider: PCP,NO Other Providers: Jessica Briceno Other Interventions: Discharge Summary Assessment (RN) Last Done: 07/02/22 10:20
[2022-07-03] MEDS ORDERED: methylPREDNISolone 4 MG TAB PO SCH (07:00)
[2022-07-04] MEDS ORDERED: methylPREDNISolone 4 MG TAB PO SCH (07:00)
[2022-07-05] MEDS ORDERED: methylPREDNISolone 4 MG TAB PO SCH (07:00)
[2022-07-06] MEDS ORDERED: methylPREDNISolone 4 MG TAB PO SCH (07:00)
== END 2022-07-02 10:40 | disposition home or self-care (01) | DRG 419 ==
LOC: ED 08:35 → 3N 12:45 → ED 12:45 → OR 12:45 → 3N 15:23

== ENCOUNTER 2023-03-24 01:40 | Inpatient (IN) ==
[2023-03-24] MEDS ORDERED: SODIUM CHLORIDE 0.9% 1,000 ML IV STA (02:35)
[2023-03-24] MEDS ORDERED: ONDANSETRON INJ 2 MG/ML 2 ML VIAL IV STA (02:35)
[2023-03-24] MEDS ORDERED: HYDROmorphone INJ 0.5 MG/0.5 ML SYR IV STA (02:35)
[2023-03-24 03:20] LABS: Basophils # (auto) 0.04 K/uL (0.00-0.20); Basophils % (auto) 0.4 %; Eosinophils % (auto) 1.1 %; Hematocrit (blood only) 44.2 % (37.0-47.0); Hemoglobin 15.1 g/dl (12.0-16.0); Immature Granulocytes # (auto) 0.03 K/uL (0.01-0.20); Immature Granulocytes % (auto) 0.3 %; Lymphocytes # (auto) 1.68 K/uL (1.20-3.40); Mean Corpuscular Hemoglobin 30.2 pg (25.0-34.0); Mean Corpuscular Hgb Conc 34.2 g/dL (32.0-36.0); Mean Corpuscular Volume 88.4 fL (80.0-100.0); Mean Platelet Volume 10.5 fL (9.4-12.4); Monocytes # (auto) 0.58 K/uL (0.11-0.59); Monocytes % (auto) 6.2 %; Neutrophils # (auto) 6.89 K/uL (1.40-6.50); Platelet Count 295 K/uL (130-400); RDW Coefficient of Variation 12.2 % (11.5-14.5); RDW Standard Deviation 39.7 fL (36.4-46.3); White Blood Count 9.32 K/ul (4.8-10.8)
[2023-03-24 03:23] LABS: Albumin Globulin Ratio 1.5 (0.9-2); Albumin Level 4.1 gm/dl (3.4-5.0); BUN Creatinine Ratio 15.3 (10-20); Calcium 9.3 mg/dl (8.6-10.3); Creatinine Clr Calc Pharmacy 115.7 ml/min; Est GFR (African American) 123.1 ml/min; Est GFR (Non-African American) 106.2 ml/min; Globulin 2.8 gm/dl (2.5-4.0); Potassium 3.6 mmol/L (3.5-5.1); Total Protein 6.9 gm/dl (6.0-8.3)
[2023-03-24] MEDS: HYDROmorphone INJ 0.5 MG/0.5 ML SYR IV PRN ×6 (04:06→22:15)
[2023-03-24 04:29] LABS: Appearance Urine Cloudy (Clear); Bacteria Urine Automated Negative (Negative); Bilirubin Urine Negative (Negative); Blood Urine Negative (Negative); Cast Urine Automated 0 /lpf (0-5); Color Urine Dark Yellow; Glucose Urine UA Negative (Negative); Ketones Urine Trace (Negative); Leukocyte Esterase Urine Negative (Negative); Nitrite Urine Negative (Negative); Protein Urine Negative (Negative); RBC Urine Automated 0-4 /hpf (0-4); Specific Gravity Urine 1.014 (1.000-1.030); Urobilinogen Urine Negative (Negative); WBC Urine Automated 0 /hpf (0-5)
--- NOTE | 2023-03-24 04:49 | History & Physical Report ---
Date of Service March 24, 2023 Assessment & Plan (1) Abnormal LFTs: (2) Right upper quadrant abdominal pain: Plan Acutely worsening abnormal LFTs/epigastric, right upper quadrant and back pain- Patient initially underwent cholecystectomy on 07/01/2022, and reports that she had been doing well until the morning of 03/23 Initial evaluation in the emergency department the afternoon of 03/23 showed normal CBC with differential and chemistry profile, and normal CT scan of the abdomen and pelvis With persistence and worsening of the pain, patient returned to the emergency department in the morning of 03/24 Liver enzymes have now significantly worsened: Total bilirubin 0.9-4.0, AST 15- 552, ALT 17-550, alkaline phosphatase 104-151. Lipase was normal at 20 Liver ultrasound shows a small amount of fluid in the gallbladder fossa MRCP has been ordered Pantoprazole 40 mg IV daily Zosyn 4.5 g IV every 8 hours Toradol 15 mg IV every 6 hours as needed for mild pain or fever Dilaudid 0.25 mg IV every 3 hours as needed for moderate pain Dilaudid 0.5 mg IV every 3 hours as needed for severe pain NSS + KCl 20 mEq at 100 mL/h Follow serial CBC with differential and chemistry profile Consult to general surgery Consult to gastroenterology History of Present Illness Chief Complaint: The patient developed acute onset of abdominal pain radiating around her right side and through to her back on the morning of 03/23. She had not gone to the emergency department, had a normal CBC with differential and normal chemistry profile there, and underwent CT scan abdomen pelvis which was negative. She was discharged to home, where she has not tried to take [id number] Prilosec, went to sleep on the evening of 03/23, and awoke a few hours later on the morning of 03/24 with severe epigastric pain radiating to her back, along with nausea without vomiting. She then represented to the ED this morning 03/24 with worsening symptoms, similar to her symptoms that led to cholecystectomy on 07/01/2022 Primary Care Provider: NO PCP The patient is a 37-year-old female with no significant past medical history, who presents to the emergency department as noted above. Repeat laboratory studies performed the morning of 03/24 now showing significantly worse liver enzymes: Total bilirubin 0.9-4.0, AST 15-552, ALT 17-550, and alkaline phosp hatase 104-151. Liver ultrasound shows fluid in the gallbladder fossa. Patient now has MRCP ordered and is pending Allergies Allergy/AdvReac Type Severity Reaction Status Date / Time No Known Allergies Allergy Verified 01/29/19 17:41 Home Medications Medication Instructions Recorded Confirmed Type ibuprofen 200 mg tablet (Advil) 800 mg PO Q8H PRN Fever Or Pain 01/29/19 03/23/23 History ketorolac 10 mg tablet 10 mg PO Q8H 5 days #15 tabs 03/23/23 Rx Past Med/Surg History Medical History (Updated 03/24/23 @ 05:51 by Richard Weeks MD) Right upper quadrant abdominal pain Acute calculous cholecystitis Acute cholecystitis due to biliary calculus Encounter for pre-operative examination No pertinent past medical history Surgical History No significant past surgical history Social History Smoking Status: Current every day smoker Tobacco Type: Cigarettes Preferred Language: Salvadorean Communication Ability: Effective Electric Stop 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 Required: No Beliefs That Will Affect Care: None Current Living Situation: Spouse and Family Feels Safe at Home: Yes Assistive Devices: None Review of Systems Review of Systems: The patient denies palpitations, shortness of breath, dyspnea on exertion, cough , lower extremity swelling, sore throat, fevers, chills, sweats, blood in urine or stool, dysuria, urinary frequency or urgency, lightheadedness, dizziness, headache, memory loss, loss of consciousness, rash, abnormal bruising or bleeding, imbalance, focal or generalized weakness, numbness or tingling in arms or legs, generalized arthralgias or myalgias, neck pain, or night sweats. The review of systems is otherwise negative other than for that already noted above, and at least 10 systems have been reviewed. Physical Exam Physical Exam: The patient is awake, alert and oriented 3, well developed and well nourished, normocephalic and atraumatic, lying in bed and in moderately severe distress secondary to abdominal and back pain HEENT--PERRL, EOMI, mucous membranes and oropharynx mildly dry. Neck--supple. No JVD. No bruits. Thyroid normal, trachea midline, no adenopathy. Heart--normal S1 and S2. No murmurs, rubs or gallops. Lungs--clear bilaterally, no respiratory distress, no accessory muscle use. Abdomen--normal bowel sounds and soft. Moderate tenderness epigastrium and right upper quadrant Extremities--no cyanosis or clubbing. No edema. Dermatologic--normal skin turgor, normal color, no abnormal lymph nodes, no rash. Neurologic--cranial nerves II through XII grossly intact. Rheumatologic--normal range of motion. Psychiatric--normal affect. Results & Data Results & Data Vital Signs (Past 12 Hours) Vital Signs Temp Pulse Pulse Resp BP BP Pulse Ox 03/24/23 03:00 76 03/24/23 03:00 77 20 116/72 95 03/24/23 02:35 87 20 95 03/24/23 01:48 36.5 C 91 H 20 111/74 100 O2 Del Method 03/24/23 03:00 03/24/23 03:00 Room Air 03/24/23 02:35 Room Air 03/24/23 01:48 Room Air Laboratory Results Laboratory Results WBC 9.32 K/ul (4.8-10.8) 03/24/23 02:43 RBC 5.00 M/uL (4.20-5.40) 03/24/23 02:43 Hgb 15.1 g/dl (12.0-16.0) 03/24/23 02:43 Hct 44.2 % (37.0-47.0) 03/24/23 02:43 MCV 88.4 fL (80.0-100.0) 03/24/23 02:43 MCH 30.2 pg (25.0-34.0) 03/24/23 02:43 MCHC 34.2 g/dL (32.0-36.0) 03/24/23 02:43 RDW Std Deviation 39.7 fL (36.4-46.3) 03/24/23 02:43 RDW Coeff of Leanrdo 12.2 % (11.5-14.5) 03/24/23 02:43 Plt Count 295 K/uL (130-400) 03/24/23 02:43 MPV 10.5 fL (9.4-12.4) 03/24/23 02:43 Immature Gran % (Auto) 0.3 % 03/24/23 02:43 Neut % (Auto) 74.0 % 03/24/23 02:43 Lymph % (Auto) 18.0 % 03/24/23 02:43 [place] % (Auto) 6.2 % 03/24/23 02:43 Eos % (Auto) 1.1 % 03/24/23 02:43 Baso % (Auto) 0.4 % 03/24/23 02:43 Neut # (Auto) 6.89 K/uL (1.40-6.50) H 03/24/23 02:43 Lymph # (Auto) 1.68 K/uL (1.20-3.40) 03/24/23 02:43 [place] # (Auto) 0.58 K/uL (0.11-0.59) 03/24/23 02:43 Eos # (Auto) 0.10 K/uL (0.00-0.50) 03/24/23 02:43 Baso # (Auto) 0.04 K/uL (0.00-0.20) 03/24/23 02:43 Immature Gran # (Auto) 0.03 K/uL (0.01-0.20) 03/24/23 02:43 PT 10.6 Seconds (9.0-12.0) 03/24/23 02:43 INR 1.0 (0.9-1.1) 03/24/23 02:43 Sodium 138 mmol/L (136-145) 03/24/23 02:43 Potassium 3.6 mmol/L (3.5-5.1) 03/24/23 02:43 Chloride 106 mmol/L (98-107) 03/24/23 02:43 Carbon Dioxide 24 mmol/L (21-32) 03/24/23 02:43 Anion Gap 8 (3-11) 03/24/23 02:43 BUN 11 mg/dl (6-23) 03/24/23 02:43 Creatinine 0.72 mg/dl (0.6-1.2) 03/24/23 02:43 Est Cr Clr Drug Dosing 115.7 ml/min 03/24/23 02:43 Est GFR ( Amer) 123.1 ml/min 03/24/23 02:43 Est GFR (Non-Af Amer) 106.2 ml/min 03/24/23 02:43 BUN/Creatinine Ratio 15.3 (10-20) 03/24/23 02:43 Glucose 113 mg/dl (70-99(Fasting)) H 03/24/23 02:43 Calcium 9.3 mg/dl (8.6-10.3) 03/24/23 02:43 Total Bilirubin 4.0 mg/dl (0.2-1.0) H D 03/24/23 02:43 AST 552 U/L (13-39) H 03/24/23 02:43 ALT 550 U/L (7-52) H 03/24/23 02:43 Alkaline Phosphatase 151 U/L (34-104) H 03/24/23 02:43 Total Protein 6.9 gm/dl (6.0-8.3) 03/24/23 02:43 Albumin 4.1 gm/dl (3.4-5.0) 03/24/23 02:43 Globulin 2.8 gm/dl (2.5-4.0) 03/24/23 02:43 Albumin/Globulin Ratio 1.5 (0.9-2) 03/24/23 02:43 Lipase 20 U/L (11-82) 03/24/23 02:43 Urine Color Dark Yellow 03/24/23 04:14 Urine Appearance Cloudy (Clear) A 03/24/23 04:14 Urine pH 7.0 (4.5-7.5) 03/24/23 04:14 Ur Specific [place] 1.014 (1.000-1.030) 03/24/23 04:14 Urine Protein Negative (Negative) 03/24/23 04:14 Urine Glucose (UA) Negative (Negative) 03/24/23 04:14 Urine Ketones Trace (Negative) H 03/24/23 04:14 Urine Blood Negative (Negative) 03/24/23 04:14 Urine Nitrite Negative (Negative) 03/24/23 04:14 Urine Bilirubin Negative (Negative) 03/24/23 04:14 Urine Urobilinogen Negative (Negative) 03/24/23 04:14 Ur Leukocyte Esterase Negative (Negative) 03/24/23 04:14 Urine WBC (Auto) 0 /hpf (0-5) 03/24/23 04:14 Urine RBC (Auto) 0-4 /hpf (0-4) 03/24/23 04:14 U Hyaline Cast (Auto) 0 /lpf (0-5) 03/24/23 04:14 U Epithel Cells (Auto) 10-20 /lpf (0-5) H 03/24/23 04:14 Urine Bacteria (Auto) Negative (Negative) 03/24/23 04:14 Impressions Liver Ultrasound 03/24/23 02:36 Exam(s): US LIVER EXAM: US Abdomen Limited CLINICAL HISTORY: Reason for exam: RUQ abd pain, s/p estela. stone. TECHNIQUE: Real-time ultrasound of the abdomen with image documentation. COMPARISON: No relevant prior studies available. FINDINGS: Gallbladder: Small amount of fluid within the gallbladder fossa measuring 2.7 x 0.5 x 1.6 cm. Gallbladder surgically absent. Kidneys: Unremarkable. No stones. No hydroureteronephrosis. Common bile duct is within normal limits given patient's postoperative status measuring 6.4 mm in diameter. IMPRESSION: 1. There is suggestion of a small amount of fluid seen within the gallbladder fossa. 2. Postoperative changes prior cholecystectomy Electronically signed by: Blaze Last MD 03/24/23 04:56 AM Code Status & VTE Plan Code Status Full code VTE Prophylaxis Plan VTE Prophylaxis will be ordered: Yes PG Care Time/CCT Total # of Minutes Spent Total Time Spent with Patient: Total time spent is greater than 50% in coordination of care (as documented) at patient's floor/unit and/or counseling patient: Coding Level of Care Code 16899 INT INP/OBS CARE 2/55MIN Diagnoses Abnormal LFTs R79.89 Right upper quadrant abdominal pain R10.11
--- NOTE | 2023-03-24 04:57 | Ultrasound Report ---
Exam(s): US LIVER EXAM: US Abdomen Limited CLINICAL HISTORY: Reason for exam: RUQ abd pain, s/p estela. stone. TECHNIQUE: Real-time ultrasound of the abdomen with image documentation. COMPARISON: No relevant prior studies available. FINDINGS: Gallbladder: Small amount of fluid within the gallbladder fossa measuring 2.7 x 0.5 x 1.6 cm. Gallbladder surgically absent. Kidneys: Unremarkable. No stones. No hydroureteronephrosis. Common bile duct is within normal limits given patient's postoperative status measuring 6.4 mm in diameter. IMPRESSION: 1. There is suggestion of a small amount of fluid seen within the gallbladder fossa. 2. Postoperative changes prior cholecystectomy Electronically signed by: Blaze Last MD 03/24/23 04:56 AM
[2023-03-24 05:09] LABS: Prothrombin Time 10.6 Seconds (9.0-12.0)
--- NOTE | 2023-03-24 05:23 | Surgery Consultation ---
Date of Consultation March 24, 2023 Assessment & Plan (1) Abdominal pain: The patient is being admitted on the hospitalist service. I discussed with the admitting hospitalist service and we will proceed as follows: Due to the elevated LFTs there is concern that patient may have a biliary ductal abnormality, in particular potentially choledocholithiasis Would recommend keeping the patient n.p.o. Hydrate with IV fluids Provide analgesics Provide antiemetics Follow serial labs I have suggested that an MRCP be ordered which the hospital service has already ordered Feel gastroenterology consultation is also warranted. I suspect that recommendations by gastroenterology will hinge on what is noted on the MRCP. Additional recommendations to be forthcoming based on results of MRCP, serial laboratory results, and recommendations from gastroenterology Supervising Physician Co-Signing Physician Notes Patient discussed with Jose BASURTO, labs and image reviewed, agree with above. Status post cholecystectomy by Dr. Briceno in June, presented with right upper quadrant abdominal pain and elevated LFTs. CT scan with no abnormality, ultrasound showed possible fluid in the gallbladder bed, surgery was consulted. MRCP showed no abnormality or filling defect. Does not appear to be related to her surgery, any further questions please direct to Dr. Lemon History of Present Illness Reason for Consultation: Abdominal pain and elevated LFTs status postcholecystectomy History of Present Illness This is a 37-year-old female who presented to the emergency department secondary to nausea and vomiting along with abdominal pain. The patient notes that she had a cholecystectomy performed secondary to cholecystitis. This was performed by Dr. Briceno on 07/02/2022. Records were reviewed and the patient was discharged the day of her surgery. She notes that she has been doing well following her surgery able to eat foods without any difficulties. She notes her pain is well- controlled and her surgical incisions have healed without incident. Patient notes that approximately 4 days ago she developed nausea without vomiting. She then developed some right upper quadrant abdominal pain with some radiation to her back that she noted was similar to what she experienced when she had cholecystitis. She denies any fevers, shakes, or chills. The patient was seen in the emergency department on 03/23/2023. During this visit the patient underwent a CT scan of the abdomen and pelvis. This study noted that the gallbladder was surgically absent. There is no biliary ductal dilatation. No other acute abnormalities were noted on this study. The patient underwent laboratories which a CBC revealed white blood cell count, hemoglobin, hematocrit, and platelet count were normal. Chemistry profile showed sodium and potassium along with the BUN and creatinine were normal. During this visit the patient's bilirubin, transaminases, and alkaline phosphatase were all nonelevated. Her lipase was nonelevated. The patient was felt to be suitable for discharge and was discharged from the emergency department. Due to recurrence of symptoms she Regina presented to the emergency department on 03/24/2023. Since arrival to the emergency department today the patient has had labs and imaging which I independently reviewed. Patient had a liver ultrasound that showed concern for small amount of fluid seen within the gallbladder fossa measuring approximately 2.7 x 0.5 x 1.6 cm. The gallbladder is noted to be surgically absent. Labs include a CBC her white blood cell count, hemoglobin, hematocrit, and platelet count were normal. Chemistry profile showed sodium and potassium were normal her BUN and creatinine were normal. Her total bilirubin was elevated at 4.0. AST and ALT are 552 and 550 respectively. Her alkaline phosphatase is 151. Coagulation studies are noted to be normal. Urinalysis was not indicative of infection. At the time of my interview the patient was resting comfortably in bed and she was in no distress. Allergies Allergy/AdvReac Type Severity Reaction Status Date / Time No Known Allergies Allergy Verified 01/29/19 17:41 Home Medications Medication Instructions Recorded Confirmed Type ibuprofen 200 mg tablet (Advil) 800 mg PO Q8H PRN Fever Or Pain 01/29/19 03/24/23 History ketorolac 10 mg tablet 10 mg PO Q8H 5 days #15 tabs 03/23/23 03/24/23 Rx Patient History Medical History (Updated 03/24/23 @ 08:16 by Arianne Larios MD) Right upper quadrant abdominal pain Acute calculous cholecystitis Acute cholecystitis due to biliary calculus Encounter for pre-operative examination No pertinent past medical history Surgical History (Updated 03/24/23 @ 08:16 by Arianne Larios MD) No significant past surgical history Social History Smoking Status: Never smoker Tobacco Type: Cigarettes Hx Alcohol Use: No Hx Substance Use: No Preferred Language: [place] Communication Ability: Effective Roller Painter Required: No Beliefs That Will Affect Care: None Current Living Situation: Family Other Information That Helps Us Care for You: No Feels Safe at Home: Yes Safety Concerns: Feels Safe At This Time Assistive Devices: None Review of Systems Constitutional: no fever and no chills Ear, Nose, Mouth, Throat: no hearing loss Respiratory: no cough and no dyspnea Cardiovascular: no chest pain Gastrointestinal: as per Subjective / HPI Genitourinary: no dysuria Musculoskeletal: + back pain (Radiating from abdomen) Integumentary: no rash Neurologic: no localized weakness Physical Exam Constitutional: WD/WN, vitals as above Eyes: + anicteric sclerae ENMT: Ears: no hearing impairment No sublingual jaundice noted Neck: trachea midline Respiratory: normal respiratory effort; no respiratory distress and no labored breathing Cardiovascular: Rate/Rhythm: regular rate and regular rhythm Gastrointestinal (Abdomen): Abdomen is soft, and non-distended. There is no rebound tenderness or guarding. Surgical incisions from previous cholecystectomy. At the time of my exam there is no pain with palpation, specifically in the right upper quadrant. Musculoskeletal: No calf tenderness Skin: no jaundice Neurologic: moves all extremities Psychiatric: A+Ox3, euthymic affect Results & Data Vital Signs (Past 12 Hours) Vital Signs Temp Pulse Pulse Resp BP BP Pulse Ox 03/24/23 03:00 76 03/24/23 03:00 77 20 116/72 95 03/24/23 02:35 87 20 95 03/24/23 01:48 36.5 C 91 H 20 111/74 100 O2 Del Method 03/24/23 03:00 03/24/23 03:00 Room Air 03/24/23 02:35 Room Air 03/24/23 01:48 Room Air PG Care Time/CCT Total # of Minutes Spent Total Time Spent with Patient: Total time spent is greater than 50% in coordination of care (as documented) at patient's floor/unit and/or counseling patient: Coding Level of Care Code 09800 IN/OBS CONSULT LVL 5,80M Diagnoses Abdominal pain R10.9
[2023-03-24] MEDS: NSS + 20MEQ KCL 20 MEQ/1,000 ML BAG IV SCH ×2 (05:54→18:49)
--- NOTE | 2023-03-24 07:10 | Emergency Department Note ---
Impression & Plan Abnormal LFTs, Acute epigastric pain, Status post cholecystectomy ED Provider Note CHIEF COMPLAINT: Epigastric abdominal HISTORY OF PRESENT ILLNESS: This 37-year-old female patient past medical history of cholecystectomy in June 2022 presents to the emergency department with complaints of epigastric abdominal pain. The patient was seen in the emergency department yesterday for similar pain, had negative CT imaging of the abdomen and pelvis as well as normal laboratory work. Patient states the pain been persistent but is now acutely much worse. She is nauseated but has not vomited. The pain is epigastric and stabbing. She denies any fevers, shortness of breath, cough and diarrhea. REVIEW OF SYSTEMS: A review of systems was performed with positives and pertinent negatives listed in the history of present illness. 10 systems were reviewed and are otherwise negative. ALLERGIES: see below MEDICATIONS: see below PMH: see below SOCIAL HISTORY: see below DDx: Pancreatitis, biliary obstruction, peptic ulcer disease, diverticulitis, kidney stone among others. PHYSICAL EXAM: Vital signs reviewed. General: Well-appearing 37-year-old female, in significant discomfort. HEENT: No scleral icterus, PERRLA, neck supple. Moist mucous membranes Cardiovascular: Regular rate and rhythm, no extra sounds. Pulmonary: Clear to auscultation bilaterally, normal work of breathing. Abdomen: Soft, tender to palpation over the epigastric area, positive rebound, positive guarding, nondistended, positive bowel sounds. No CVA tenderness Musculoskeletal: Atraumatic, no peripheral edema. Neurologic: Patient awake alert and oriented x 3, speech is clear Skin: Warm, dry, no rash EMERGENCY DEPARTMENT COURSE/MDM: This patient was evaluated and appeared to be in significant discomfort. IV access was obtained and laboratory work was drawn. The patient was placed on the environmental monitoring technician noted to be in a normal sinus rhythm. Patient was hydrated with normal saline solution, given IV Dilaudid and IV Zofran for discomfort. Laboratory work reveals a significant change from just hours prior. Patient now has elevated AST, ALT and total bilirubin. Abdominal ultrasound was performed and reveals fluid in the gallbladder fossa. There is no obvious stone on ultrasound. Case was discussed with Dr. Fuentes of the hospitalist service who will evaluate the patient for admission and further management. MRCP has been ordered. Patient did require several doses of IV Dilaudid for pain control, although symptoms are much better managed at this time. Patient is aware of the plan and agrees. MONITORING: An order for cardiac monitoring was placed and the patient is noted to be in a normal sinus rhythm at 65 beats per minute. RADIOLOGY: CT imaging of the abdomen pelvis performed yesterday was reviewed, negative for acute process. Ultrasound of the right upper quadrant/liver was performed IMPRESSION: 1. There is suggestion of a small amount of fluid seen within the gallbladder fossa. 2. Postoperative changes prior cholecystectomy EKG: To my interpretation reveals a normal sinus rhythm at [address] segments. QTc of 440. No previous for comparison DISPOSITION: Admission Past Med/Surg History Medical History (Updated 03/24/23 @ 08:16 by Arianne Larios MD) Right upper quadrant abdominal pain Acute calculous cholecystitis Acute cholecystitis due to biliary calculus Encounter for pre-operative examination No pertinent past medical history Surgical History (Updated 03/24/23 @ 08:16 by Arianne Larios MD) No significant past surgical history Social History Smoking Status: Current every day smoker Tobacco Type: Cigarettes Preferred Language: Serbian Communication Ability: Effective Ux Lead Required: No Beliefs That Will Affect Care: None Current Living Situation: Spouse and Family Feels Safe at Home: Yes Assistive Devices: None Allergies Allergies Allergy/AdvReac Type Severity Reaction Status Date / Time No Known Allergies Allergy Verified 01/29/19 17:41 Home Meds Home Medications Medication Instructions Recorded Confirmed ibuprofen 200 mg tablet (Advil) 800 mg PO Q8H PRN Fever Or Pain 01/29/19 03/23/23 Previous Rx's Medication Instructions Recorded ketorolac 10 mg tablet 10 mg PO Q8H 5 days #15 tabs 03/23/23 Results & Data (ED) Vital Signs Vital Signs - 24 hr 03/24/23 01:48 03/24/23 02:35 03/24/23 03:00 Temperature 36.5 C Temperature Source Temporal Artery Scan Pulse Rate 91 H 87 Pulse Rate [Apical] 77 Pulse Rate from SpO2 Sensor Pulse Rhythm Regular Pulse Rhythm [Apical] Regular Pulse Strength [Apical] Normal Respiratory Rate 20 20 20 Respiratory Effort / Characteristics Non-Labored Spontaneous Non-Labored Spontaneous Respiratory Depth Normal Normal Respiratory Pattern Regular Blood Pressure 111/74 Blood Pressure [Left Arm] 116/72 Blood Pressure Mean 86 Blood Pressure Mean [Left Arm] 86 Blood Pressure Position [Left Arm] Lying Pulse Oximetry 100 95 95 Oxygen Delivery Method Room Air Room Air Room Air Sepsis New/Unexplained Change in Mental Status N/A Sepsis Action Taken by Nursing No Action Required 03/24/23 03:00 03/24/23 04:38 03/24/23 04:40 Temperature Temperature Source Pulse Rate 76 87 75 Pulse Rate [Apical] Pulse Rate from SpO2 Sensor 88 75 Pulse Rhythm Pulse Rhythm [Apical] Pulse Strength [Apical] Respiratory Rate 26 H 15 Respiratory Effort / Characteristics Respiratory Depth Respiratory Pattern Blood Pressure Blood Pressure [Left Arm] Blood Pressure Mean Blood Pressure Mean [Left Arm] Blood Pressure Position [Left Arm] Pulse Oximetry 95 95 Oxygen Delivery Method Sepsis New/Unexplained Change in Mental Status Sepsis Action Taken by Detention Medications Current Medication List: was personally reviewed by me Laboratory Data Attestation: I reviewed the patient's lab results. 03/24/23 02:43 03/24/23 02:43 Lab Results 03/24/23 03/24/23 Range/Units 02:43 04:14 WBC 9.32 (4.8-10.8) K/ul RBC 5.00 (4.20-5.40) M/uL Hgb 15.1 (12.0-16.0) g/dl Hct 44.2 (37.0-47.0) % MCV 88.4 (80.0-100.0) fL MCH 30.2 (25.0-34.0) pg MCHC 34.2 (32.0-36.0) g/dL RDW Std Deviation 39.7 (36.4-46.3) fL RDW Coeff of Leandro 12.2 (11.5-14.5) % Plt Count 295 (130-400) K/uL MPV 10.5 (9.4-12.4) fL Immature Gran % (Auto) 0.3 % Neut % (Auto) 74.0 % Lymph % (Auto) 18.0 % [place] % (Auto) 6.2 % Eos % (Auto) 1.1 % Baso % (Auto) 0.4 % Neut # (Auto) 6.89 H (1.40-6.50) K/uL Lymph # (Auto) 1.68 (1.20-3.40) K/uL [place] # (Auto) 0.58 (0.11-0.59) K/uL Eos # (Auto) 0.10 (0.00-0.50) K/uL Baso # (Auto) 0.04 (0.00-0.20) K/uL Immature Gran # (Auto) 0.03 (0.01-0.20) K/uL PT 10.6 (9.0-12.0) Seconds INR 1.0 (0.9-1.1) Sodium 138 (136-145) mmol/L Potassium 3.6 (3.5-5.1) mmol/L Chloride 106 (98-107) mmol/L Carbon Dioxide 24 (21-32) mmol/L Anion Gap 8 (3-11) BUN 11 (6-23) mg/dl Creatinine 0.72 (0.6-1.2) mg/dl Est Cr Clr Drug Dosing 115.7 ml/min Est GFR ( Amer) 123.1 ml/min Est GFR (Non-Af Amer) 106.2 ml/min BUN/Creatinine Ratio 15.3 (10-20) Glucose 113 H (70-99(Fasting)) mg/dl Calcium 9.3 (8.6-10.3) mg/dl Total Bilirubin 4.0 H D (0.2-1.0) mg/dl AST 552 H (13-39) U/L ALT 550 H (7-52) U/L Alkaline Phosphatase 151 H (34-104) U/L Total Protein 6.9 (6.0-8.3) gm/dl Albumin 4.1 (3.4-5.0) gm/dl Globulin 2.8 (2.5-4.0) gm/dl Albumin/Globulin Ratio 1.5 (0.9-2) Lipase 20 (11-82) U/L Urine Color Dark Yellow Urine Appearance Cloudy A (Clear) Urine pH 7.0 (4.5-7.5) Ur Specific [place] 1.014 (1.000-1.030) Urine Protein Negative (Negative) Urine Glucose (UA) Negative (Negative) Urine Ketones Trace H (Negative) Urine Blood Negative (Negative) Urine Nitrite Negative (Negative) Urine Bilirubin Negative (Negative) Urine Urobilinogen Negative (Negative) Ur Leukocyte Esterase Negative (Negative) Urine WBC (Auto) 0 (0-5) /hpf Urine RBC (Auto) 0-4 (0-4) /hpf U Hyaline Cast (Auto) 0 (0-5) /lpf U Epithel Cells (Auto) 10-20 H (0-5) /lpf Urine Bacteria (Auto) Negative (Negative) Administered Medications Potassium Chloride/Sodium Chloride (Normal Saline W/20 Meq Kcl) 20 meq in 1,000 mls @ 100 mls/hr IV .Q10H CONNOR; Protocol Stop: 04/23/23 04:59 Last Admin: 03/24/23 05:54 Dose: 100 mls/hr Documented By: IDD Discontinued Medications Hydromorphone HCl (Hydromorphone Inj 0.5 Mg/0.5 Ml Syr) 0.5 mg IV NOW STA Stop: 03/24/23 02:36 Last Admin: 03/24/23 02:50 Dose: 0.5 mg Documented By: IDD Hydromorphone HCl (Hydromorphone Inj 0.5 Mg/0.5 Ml Syr) 0.5 mg IV Q1H PRN PRN Reason: Pain Stop: 04/07/23 03:31 Last Admin: 03/24/23 07:47 Dose: 0.5 mg Documented By: Admin: 03/24/23 05:51 Dose: 0.5 mg Documented By: Admin: 03/24/23 04:06 Dose: 0.5 mg Documented By: IDD Sodium Chloride (Nss) 1,000 mls @ 999 mls/hr IV .Q1H1M STA Stop: 03/24/23 03:35 Last Infusion: 03/24/23 04:00 Dose: Infused Documented By: Admin: 03/24/23 02:50 Dose: 999 mls/hr Documented By: IDD Ondansetron HCl (Ondansetron Inj 2 Mg/Ml 2 Ml Vial) 4 mg IV NOW STA Stop: 03/24/23 02:36 Last Admin: 03/24/23 02:50 Dose: 4 mg Documented By: IDD Imaging Data Radiologist's Impression: Liver Ultrasound 03/24/23 02:36 Exam(s): US LIVER EXAM: US Abdomen Limited CLINICAL HISTORY: Reason for exam: RUQ abd pain, s/p estela. stone. TECHNIQUE: Real-time ultrasound of the abdomen with image documentation. COMPARISON: No relevant prior studies available. FINDINGS: Gallbladder: Small amount of fluid within the gallbladder fossa measuring 2.7 x 0.5 x 1.6 cm. Gallbladder surgically absent. Kidneys: Unremarkable. No stones. No hydroureteronephrosis. Common bile duct is within normal limits given patient's postoperative status measuring 6.4 mm in diameter. IMPRESSION: 1. There is suggestion of a small amount of fluid seen within the gallbladder fossa. 2. Postoperative changes prior cholecystectomy Electronically signed by: Blaze Last MD 03/24/23 04:56 AM Discharge Plan Visit Data Chief Complaint: Abdominal Pain Stated Complaint: SEVERE ABDOMINAL PAIN INTO BACK ED Provider: Arianne Larios Discharge Problem: Abnormal LFTs, Acute epigastric pain, Status post cholecystectomy Discharge Instructions Interventions: ED Discharge Assessment Last Done: 03/24/23 07:57
[2023-03-24] MEDS ORDERED: HYDROmorphone INJ 0.5 MG/0.5 ML SYR IV PRN (07:57)
[2023-03-24] MEDS ORDERED: PIPER/TAZO 4.5g in D5W MINI-B 100 ML IV ONE (08:15)
--- NOTE | 2023-03-24 09:36 | Magnetic Resonance Report ---
MRCP CLINICAL HISTORY: Abnormal liver function studies. COMPARISON STUDY: Abdominal CT dated 03/23/2023. Abdominal ultrasound dated 03/24/2023. TECHNIQUE: Abdominal MRCP is performed utilizing various T1 and T2-weighted sequences in the axial an d coronal planes. 3-D reformats were created and assessed. IV contrast was not administered for this examination. Diffusion-weighted imaging was performed. The examination is degraded by motion artifact . FINDINGS: The gallbladder is surgically absent. There is minimal central intrahepatic biliary ductal dilatation . The common bile duct is normal in caliber, measuring up to 5 mm. No intraluminal filling defects ar e seen to suggest choledocholithiasis. The pancreatic duct is normal in caliber. The unenhanced liver, spleen, adrenal glands, kidneys, and pancreas are grossly unremarkable. The abd ominal aorta is normal in course and caliber. There is trace perihepatic fluid. No bowel obstruction is seen. No pleural effusion is identified. There is no evidence of destructive bony lesion. A small hiatal hernia is noted. IMPRESSION: Normal MRCP noting status post cholecystectomy. Dictated: 03/24/2023 8:48 AM Transcribed: 03/24/2023 9:02 AM Von [id number] [email or web address] Electronically signed by: Nathan Jay M.D. 03/24/2023 9:34 AM
[2023-03-24] MEDS: PANTOprazole 40 MG in SYRINGE 0 ML IV SCH (10:20)
--- NOTE | 2023-03-24 12:30 | Gastrointestinal Consultation ---
Date of Consultation March 24, 2023 History of Present Illness Reason for Consultation: Abd pain Attending Physician: Richard Weeks MD Allergies Allergy/AdvReac Type Severity Reaction Status Date / Time No Known Allergies Allergy Verified 01/29/19 17:41 Home Medications Medication Instructions Recorded Confirmed Type ibuprofen 200 mg tablet (Advil) 800 mg PO Q8H PRN Fever Or Pain 01/29/19 03/24/23 History ketorolac 10 mg tablet 10 mg PO Q8H 5 days #15 tabs 03/23/23 03/24/23 Rx Patient History Medical History (Updated 03/24/23 @ 08:16 by Arianne Larios MD) Right upper quadrant abdominal pain Acute calculous cholecystitis Acute cholecystitis due to biliary calculus Encounter for pre-operative examination No pertinent past medical history Surgical History (Updated 03/24/23 @ 08:16 by Arianne Larios MD) No significant past surgical history Social History Smoking Status: Never smoker Tobacco Type: Cigarettes Hx Alcohol Use: No Hx Substance Use: No Preferred Language: Iranian Communication Ability: Effective Train Operations Supervisor Required: No Beliefs That Will Affect Care: None Current Living Situation: Family Other Information That Helps Us Care for You: No Feels Safe at Home: Yes Safety Concerns: Feels Safe At This Time Assistive Devices: None Results & Data Vital Signs (Past 12 Hours) Vital Signs Temp Pulse Pulse Resp BP BP Pulse Ox 03/24/23 11:40 62 18 102/64 97 03/24/23 09:25 67 16 96 03/24/23 09:20 67 17 94 03/24/23 09:10 74 22 95 03/24/23 09:08 97 03/24/23 07:30 58 L 12 98 03/24/23 07:24 65 03/24/23 07:20 69 12 96 03/24/23 07:00 74 10 L 94 03/24/23 06:50 78 12 95 03/24/23 06:40 74 15 94 03/24/23 06:30 77 13 94 03/24/23 06:20 75 10 L 93 03/24/23 06:10 75 10 L 93 03/24/23 06:00 82 19 96 03/24/23 05:56 112/65 03/24/23 05:56 83 16 95 03/24/23 05:56 77 16 112/65 94 03/24/23 05:50 72 13 96 03/24/23 05:40 69 13 94 03/24/23 05:30 72 12 94 03/24/23 05:20 78 17 94 03/24/23 05:10 74 18 96 03/24/23 05:00 72 18 95 03/24/23 05:00 64 15 118/74 94 03/24/23 04:50 78 14 94 03/24/23 04:40 75 15 95 03/24/23 04:38 87 26 H 95 03/24/23 03:00 76 03/24/23 03:00 77 20 116/72 95 03/24/23 02:35 87 20 95 03/24/23 01:48 36.5 C 91 H 20 111/74 100 O2 Del Method 03/24/23 11:40 Room Air 03/24/23 09:25 Room Air 03/24/23 09:20 03/24/23 09:10 03/24/23 09:08 03/24/23 07:30 03/24/23 07:24 03/24/23 07:20 03/24/23 07:00 03/24/23 06:50 03/24/23 06:40 03/24/23 06:30 03/24/23 06:20 03/24/23 06:10 03/24/23 06:00 03/24/23 05:56 03/24/23 05:56 03/24/23 05:56 Room Air 03/24/23 05:50 03/24/23 05:40 03/24/23 05:30 03/24/23 05:20 03/24/23 05:10 03/24/23 05:00 03/24/23 05:00 Room Air 03/24/23 04:50 03/24/23 04:40 03/24/23 04:38 03/24/23 03:00 03/24/23 03:00 Room Air 03/24/23 02:35 Room Air 03/24/23 01:48 Room Air
--- NOTE | 2023-03-24 12:54 | Surgery Progress Note ---
Date of Service March 24, 2023 Assessment & Plan (1) Right upper quadrant abdominal pain: Plan: Assessment: pt is a 37 year-old female who presents to ER with 3 days history RUQ pain, with nausea, no vomiting. pt denies fever, elevated LFTs, ( T) bilirubin 4. pt had lap estela in June,. pt had U/S study- MPRESSION: 1. There is suggestion of a small amount of fluid seen within the gallbladder fossa. 2. Postoperative changes prior cholecystectomy MRCP- Normal finding, Plan, internal medicine team will admit pt to hospital. please consult GI for ERCP. conservative treatment now, NPO, IV fluid, control pain, repeat labs in morning, will F/U, pt agreed with the plan, i answered all questions. Admission and Anticipated Discharge Date Admission Date: March 24, 2023 Subjective pt is a 37 year-old female who presents to ER with 3 days history RUQ pain, with nausea, no vomiting. pt denies fever, elevated LFTs, ( T) bilirubin 4. pt had lap estela in June,. pt had U/S study- MPRESSION: 1. There is suggestion of a small amount of fluid seen within the gallbladder fossa. 2. Postoperative changes prior cholecystectomy MRCP- Normal finding, Physical Exam Constitutional: WD/WN, vitals as above no disdress Eyes: jaundice Neck: trachea midline, no thyromegaly Respiratory: normal respiratory effort, lungs clear to auscultation Cardiovascular: RRR, no murmur, no edema Gastrointestinal (Abdomen): soft, no significant tenderness at RUQ, no distend, BS +. Musculoskeletal: no cyanosis or clubbing, extremities motor strength 5/5 Neurologic: patellar DTR's 2+ bilat, sensation intact Psychiatric: A+Ox3, euthymic affect Results & Data Vital Signs (Past 12 Hours) Vital Signs Temp Pulse Pulse Resp BP BP Pulse Ox 03/24/23 11:40 62 18 102/64 97 03/24/23 09:25 67 16 96 03/24/23 09:20 67 17 94 03/24/23 09:10 74 22 95 03/24/23 09:08 97 03/24/23 07:30 58 L 12 98 03/24/23 07:24 65 03/24/23 07:20 69 12 96 03/24/23 07:00 74 10 L 94 03/24/23 06:50 78 12 95 03/24/23 06:40 74 15 94 03/24/23 06:30 77 13 94 03/24/23 06:20 75 10 L 93 03/24/23 06:10 75 10 L 93 03/24/23 06:00 82 19 96 03/24/23 05:56 112/65 03/24/23 05:56 83 16 95 03/24/23 05:56 77 16 112/65 94 03/24/23 05:50 72 13 96 03/24/23 05:40 69 13 94 03/24/23 05:30 72 12 94 03/24/23 05:20 78 17 94 03/24/23 05:10 74 18 96 03/24/23 05:00 72 18 95 03/24/23 05:00 64 15 118/74 94 03/24/23 04:50 78 14 94 03/24/23 04:40 75 15 95 03/24/23 04:38 87 26 H 95 03/24/23 03:00 76 03/24/23 03:00 77 20 116/72 95 03/24/23 02:35 87 20 95 03/24/23 01:48 36.5 C 91 H 20 111/74 100 O2 Del Method 03/24/23 11:40 Room Air 03/24/23 09:25 Room Air 03/24/23 09:20 03/24/23 09:10 03/24/23 09:08 03/24/23 07:30 03/24/23 07:24 03/24/23 07:20 03/24/23 07:00 03/24/23 06:50 03/24/23 06:40 03/24/23 06:30 03/24/23 06:20 03/24/23 06:10 03/24/23 06:00 03/24/23 05:56 03/24/23 05:56 03/24/23 05:56 Room Air 03/24/23 05:50 03/24/23 05:40 03/24/23 05:30 03/24/23 05:20 03/24/23 05:10 03/24/23 05:00 03/24/23 05:00 Room Air 03/24/23 04:50 03/24/23 04:40 03/24/23 04:38 03/24/23 03:00 03/24/23 03:00 Room Air 03/24/23 02:35 Room Air 03/24/23 01:48 Room Air Laboratory Results Lab Results 03/24/23 03/24/23 Range/Units 02:43 04:14 WBC 9.32 (4.8-10.8) K/ul RBC 5.00 (4.20-5.40) M/uL Hgb 15.1 (12.0-16.0) g/dl Hct 44.2 (37.0-47.0) % MCV 88.4 (80.0-100.0) fL MCH 30.2 (25.0-34.0) pg MCHC 34.2 (32.0-36.0) g/dL RDW Std Deviation 39.7 (36.4-46.3) fL RDW Coeff of Leandro 12.2 (11.5-14.5) % Plt Count 295 (130-400) K/uL MPV 10.5 (9.4-12.4) fL Immature Gran % (Auto) 0.3 % Neut % (Auto) 74.0 % Lymph % (Auto) 18.0 % [place] % (Auto) 6.2 % Eos % (Auto) 1.1 % Baso % (Auto) 0.4 % Neut # (Auto) 6.89 H (1.40-6.50) K/uL Lymph # (Auto) 1.68 (1.20-3.40) K/uL [place] # (Auto) 0.58 (0.11-0.59) K/uL Eos # (Auto) 0.10 (0.00-0.50) K/uL Baso # (Auto) 0.04 (0.00-0.20) K/uL Immature Gran # (Auto) 0.03 (0.01-0.20) K/uL PT 10.6 (9.0-12.0) Seconds INR 1.0 (0.9-1.1) Sodium 138 (136-145) mmol/L Potassium 3.6 (3.5-5.1) mmol/L Chloride 106 (98-107) mmol/L Carbon Dioxide 24 (21-32) mmol/L Anion Gap 8 (3-11) BUN 11 (6-23) mg/dl Creatinine 0.72 (0.6-1.2) mg/dl Est Cr Clr Drug Dosing 115.7 ml/min Est GFR ( Amer) 123.1 ml/min Est GFR (Non-Af Amer) 106.2 ml/min BUN/Creatinine Ratio 15.3 (10-20) Glucose 113 H (70-99(Fasting)) mg/dl Calcium 9.3 (8.6-10.3) mg/dl Total Bilirubin 4.0 H D (0.2-1.0) mg/dl AST 552 H (13-39) U/L ALT 550 H (7-52) U/L Alkaline Phosphatase 151 H (34-104) U/L Total Protein 6.9 (6.0-8.3) gm/dl Albumin 4.1 (3.4-5.0) gm/dl Globulin 2.8 (2.5-4.0) gm/dl Albumin/Globulin Ratio 1.5 (0.9-2) Lipase 20 (11-82) U/L Urine Color Dark Yellow Urine Appearance Cloudy A (Clear) Urine pH 7.0 (4.5-7.5) Ur Specific [place] 1.014 (1.000-1.030) Urine Protein Negative (Negative) Urine Glucose (UA) Negative (Negative) Urine Ketones Trace H (Negative) Urine Blood Negative (Negative) Urine Nitrite Negative (Negative) Urine Bilirubin Negative (Negative) Urine Urobilinogen Negative (Negative) Ur Leukocyte Esterase Negative (Negative) Urine WBC (Auto) 0 (0-5) /hpf Urine RBC (Auto) 0-4 (0-4) /hpf U Hyaline Cast (Auto) 0 (0-5) /lpf U Epithel Cells (Auto) 10-20 H (0-5) /lpf Urine Bacteria (Auto) Negative (Negative) Diagnostic Findings MRCP CLINICAL HISTORY: Abnormal liver function studies. COMPARISON STUDY: Abdominal CT dated 03/23/2023. Abdominal ultrasound dated 03/24/2023. TECHNIQUE: Abdominal MRCP is performed utilizing various T1 and T2-weighted sequences in the axial and coronal planes. 3-D reformats were created and assessed. IV contrast was not administered for this examination. Diffusion- weighted imaging was performed. The examination is degraded by motion artifact. FINDINGS: The gallbladder is surgically absent. There is minimal central intrahepatic biliary ductal dilatation. The common bile duct is normal in caliber, measuring up to 5 mm. No intraluminal filling defects are seen to suggest choledocholithiasis. The pancreatic duct is normal in caliber. The unenhanced liver, spleen, adrenal glands, kidneys, and pancreas are grossly unremarkable. The abdominal aorta is normal in course and caliber. There is trace perihepatic fluid. No bowel obstruction is seen. No pleural effusion is identified. There is no evidence of destructive bony lesion. A small hiatal hernia is noted. IMPRESSION: Normal MRCP noting status post cholecystectomy. Dictated: 03/24/2023 8:48 AM Transcribed: 03/24/2023 9:02 AM Von [id number] [email or web address] Electronically signed by: Nathan Jay M.D. 03/24/2023 9:34 AM Exam(s): US LIVER EXAM: US Abdomen Limited CLINICAL HISTORY: Reason for exam: RUQ abd pain, s/p estela. stone. TECHNIQUE: Real-time ultrasound of the abdomen with image documentation. COMPARISON: No relevant prior studies available. FINDINGS: Gallbladder: Small amount of fluid within the gallbladder fossa measuring 2.7 x 0.5 x 1.6 cm. Gallbladder surgically absent. Kidneys: Unremarkable. No stones. No hydroureteronephrosis. Common bile duct is within normal limits given patient's postoperative status measuring 6.4 mm in diameter. IMPRESSION: 1. There is suggestion of a small amount of fluid seen within the gallbladder fossa. 2. Postoperative changes prior cholecystectomy Electronically signed by: Blaze Last MD 03/24/23 04:56 AM Dictated: 03/24/236 Transcribed: 03/24/23455
--- NOTE | 2023-03-24 13:00 | Gastrointestinal Consultation ---
Date of Consultation March 24, 2023 Assessment & Plan (1) Abnormal LFTs: (2) Abdominal pain: (3) Status post cholecystectomy: Plan Acute cholestatic liver injury. Diff dx: medication (NSAIDS) vs viral vs other. -Acute hepatitis panel. -Check CMV and EBV serologies. -Continue to trend liver and coag panels. -Rest per primary team and general surgery. Thank you for allowing us to participate in the care of this patient. If you have any questions or concerns, please do not hesitate to contact us. Supervising Physician Co-Signing Physician Notes I saw the patient and agree with the findings as documented by MOO Vasquez History of Present Illness Reason for Consultation: Elevated liver enzymes Requesting Physician: Dr. Carlton Attending Physician: Richard Weeks MD History of Present Illness Patient is a 37 y.o. female status post cholecystectomy in June of [address] Briceno admitted with RUQ pain and nausea. She reports the nausea began 5 days ago and then three days ago, she developed severe abdominal pain which prompted her to present to the ER yesterday. She was evaluated by general surgery as she was found to have a significantly elevated liver panel. MRCP was negative for biliary obstruction, however, prompting GI consultation. Labs today reviewed. No leukocytosis. Platelets and INR were normal. Liver panel demonstrated the following: TB 4.0, AST 552, ALT 550, and ALP 151. Lipase was also normal at 20. 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 No new medications other than NSAID prescribed yesterday at which time her liver panel was normal. No fevers/chills, dark urine, acholic stools, melena, hematochezia, fatigue or pruritus. Allergies Allergy/AdvReac Type Severity Reaction Status Date / Time No Known Allergies Allergy Verified 01/29/19 17:41 Home Medications Medication Instructions Recorded Confirmed Type ibuprofen 200 mg tablet (Advil) 800 mg PO Q8H PRN Fever Or Pain 01/29/19 03/24/23 History ketorolac 10 mg tablet 10 mg PO Q8H 5 days #15 tabs 03/23/23 03/24/23 Rx Patient History Medical History Right upper quadrant abdominal pain Acute calculous cholecystitis Acute cholecystitis due to biliary calculus Encounter for pre-operative examination No pertinent past medical history Surgical History No significant past surgical history Social History Smoking Status: Never smoker Tobacco Type: Cigarettes Hx Alcohol Use: No Hx Substance Use: No Preferred Language: Guatemalan 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 Beliefs That Will Affect Care: None Current Living Situation: Family Other Information That Helps Us Care for You: No Feels Safe at Home: Yes Safety Concerns: Feels Safe At This Time Assistive Devices: None Review of Systems Review of Systems: All systems reviewed & are unremarkable except as noted in HPI & below Physical Exam Constitutional: WD/WN, vitals as above Eyes: EOM intact bilaterally Neck: normal appearance Respiratory: normal respiratory effort, lungs clear to auscultation Cardiovascular: Rate/Rhythm: regular rate and regular rhythm Heart Sounds: no gallop and no murmur Gastrointestinal (Abdomen): normal bowel sounds, soft, nontender, no hepatosplenomegaly Inspection/Auscultation: abdomen not distended Musculoskeletal: Extremities: no cyanosis no lower extremity edema Skin: no rashes, warm and dry Neurologic: moves all extremities Psychiatric: A+Ox3, euthymic affect Results & Data Vital Signs (Past 12 Hours) Vital Signs Temp Pulse Pulse Resp BP BP Pulse Ox 03/24/23 11:40 62 18 102/64 97 03/24/23 09:25 67 16 96 03/24/23 09:20 67 17 94 03/24/23 09:10 74 22 95 03/24/23 09:08 97 03/24/23 07:30 58 L 12 98 03/24/23 07:24 65 03/24/23 07:20 69 12 96 03/24/23 07:00 74 10 L 94 03/24/23 06:50 78 12 95 03/24/23 06:40 74 15 94 03/24/23 06:30 77 13 94 03/24/23 06:20 75 10 L 93 03/24/23 06:10 75 10 L 93 03/24/23 06:00 82 19 96 03/24/23 05:56 112/65 03/24/23 05:56 83 16 95 03/24/23 05:56 77 16 112/65 94 03/24/23 05:50 72 13 96 03/24/23 05:40 69 13 94 03/24/23 05:30 72 12 94 03/24/23 05:20 78 17 94 03/24/23 05:10 74 18 96 03/24/23 05:00 72 18 95 03/24/23 05:00 64 15 118/74 94 03/24/23 04:50 78 14 94 03/24/23 04:40 75 15 95 03/24/23 04:38 87 26 H 95 03/24/23 03:00 76 03/24/23 03:00 77 20 116/72 95 03/24/23 02:35 87 20 95 03/24/23 01:48 36.5 C 91 H 20 111/74 100 O2 Del Method 03/24/23 11:40 Room Air 03/24/23 09:25 Room Air 03/24/23 09:20 03/24/23 09:10 03/24/23 09:08 03/24/23 07:30 03/24/23 07:24 03/24/23 07:20 03/24/23 07:00 03/24/23 06:50 03/24/23 06:40 03/24/23 06:30 03/24/23 06:20 03/24/23 06:10 03/24/23 06:00 03/24/23 05:56 03/24/23 05:56 03/24/23 05:56 Room Air 03/24/23 05:50 03/24/23 05:40 03/24/23 05:30 03/24/23 05:20 03/24/23 05:10 03/24/23 05:00 03/24/23 05:00 Room Air 03/24/23 04:50 03/24/23 04:40 03/24/23 04:38 03/24/23 03:00 03/24/23 03:00 Room Air 03/24/23 02:35 Room Air 03/24/23 01:48 Room Air PG Care Time/CCT Total # of Minutes Spent Total Time Spent with Patient: Total time spent is greater than 50% in coordination of care (as documented) at patient's floor/unit and/or counseling patient: Coding Level of Care Code 98638 IN/OBS CONSULT LVL 4,60M Diagnoses Abnormal LFTs R79.89 Abdominal pain R10.9 Status post cholecystectomy Z90.49
[2023-03-24] MEDS: ONDANSETRON INJ 2 MG/ML 2 ML VIAL IV PRN ×2 (13:45→22:18)
[2023-03-24] MEDS: PIPERACILLIN/TAZOBACTAM 4.5 GM in DEXTROSE 5% MINI-B 100 ML IV SCH ×2 (14:08→21:22)
--- NOTE | 2023-03-24 19:07 | Hospitalist Progress Note ---
Date of Service March 24, 2023 Assessment & Plan (1) Abnormal LFTs: Plan: Transaminitis present on admission. She may have passed a stone through the common bile duct. She is status postcholecystectomy earlier this year. At the time of my examination she is feeling much better and asking for food. (2) Right upper quadrant abdominal pain: Plan: Now resolved. History of cholecystectomy earlier this year Plan Hopeful discharge to home tomorrow, March 25 Admission and Anticipated Discharge Date Admission Date: March 24, 2023 Subjective Alert and oriented. She is feeling better and asking for a regular diet. MRCP was normal. Right upper quadrant ultrasound negative. Surgery consultation and GI consultation and recommendations noted. Liver enzymes are elevated but hopefully will decrease. She is status postcholecystectomy earlier this year in June. Lipase is normal. Review of Systems 2 Review of Systems: Constitutional-no fever or chills ENT-no blurred vision, no double vision, no epistaxis, no sore throat Respiratory-no cough, no wheezing, no shortness of breath Cardiac-no palpitations, no chest pain, no syncope GI-no nausea, vomiting, diarrhea, melena, hematochezia -no urinary retention, no urinary incontinence, no dysuria, no hematuria Musculoskeletal-no joint pain, no muscle tenderness Skin-no bruising, no rashes, no pruritus Neuro-no isolated weakness, no paresthesia, no weakness Psych-no depression, no anxiety Physical Exam 2 Physical Exam: General-alert and oriented x3, no fevers, no chills HEENT-head atraumatic and normocephalic, pupils equal and reactive to light, extraocular muscles intact Neck-no lymphadenopathy or thyromegaly, trachea midline Chest-clear to auscultation percussion. No rales wheezing or rhonchi Cardiac-regular rate and rhythm, normal S1 and S2 Abdomen-normal bowel sounds, nontender, no hepatosplenomegaly. She states the abdominal pain has resolved but she has received intravenous narcotics Extremities-no cyanosis, clubbing, or edema Neuro-cranial nerves II through XII intact, motor and sensory function within normal limits, strength symmetrical, no focal deficits Psych-normal affect, normal mood Results & Data Results & Data Vital Signs (Past 12 Hours) Vital Signs Pulse Pulse Resp BP Pulse Ox O2 Del Method 03/24/23 17:21 70 18 106/66 99 Room Air 03/24/23 15:39 62 03/24/23 11:40 62 18 102/64 97 Room Air 03/24/23 09:25 67 16 96 Room Air 03/24/23 09:20 67 17 94 03/24/23 09:10 74 22 95 03/24/23 09:08 97 03/24/23 07:30 58 L 12 98 03/24/23 07:24 65 03/24/23 07:20 69 12 96 Laboratory Results 03/24/23 02:43 03/24/23 02:43 PG Care Time/CCT Total # of Minutes Spent Total Time Spent with Patient: Total time spent is greater than 50% in coordination of care (as documented) at patient's floor/unit and/or counseling patient: Coding Level of Care Code 94596 SUB INP/OBS CARE 3/50MIN Diagnoses Abnormal LFTs R79.89 Right upper quadrant abdominal pain R10.11
[2023-03-24] MEDS: KETOROLAC TROMETHAMINE 15 MG/ML VIAL IV PRN (22:41)
[2023-03-25] MEDS: PIPERACILLIN/TAZOBACTAM 4.5 GM in DEXTROSE 5% MINI-B 100 ML IV SCH (05:34)
[2023-03-25] MEDS: NSS + 20MEQ KCL 20 MEQ/1,000 ML BAG IV SCH (05:34)
[2023-03-25] MEDS: KETOROLAC TROMETHAMINE 15 MG/ML VIAL IV PRN (06:55)
[2023-03-25 07:24] LABS: Basophils # (auto) 0.06 K/uL (0.00-0.20); Basophils % (auto) 0.9 %; Eosinophils # (auto) 0.19 K/uL (0.00-0.50); Eosinophils % (auto) 2.7 %; Hematocrit (blood only) 41.1 % (37.0-47.0); Hemoglobin 13.9 g/dl (12.0-16.0); Immature Granulocytes # (auto) 0.02 K/uL (0.01-0.20); Immature Granulocytes % (auto) 0.3 %; Lymphocytes % (auto) 33.2 %; Mean Corpuscular Hemoglobin 30.7 pg (25.0-34.0); Mean Corpuscular Hgb Conc 33.8 g/dL (32.0-36.0); Mean Corpuscular Volume 90.7 fL (80.0-100.0); Mean Platelet Volume 10.4 fL (9.4-12.4); Monocytes # (auto) 0.38 K/uL (0.11-0.59); Monocytes % (auto) 5.5 %; Neutrophils # (auto) 3.98 K/uL (1.40-6.50); Neutrophils % (auto) 57.4 %; Platelet Count 255 K/uL (130-400); RDW Coefficient of Variation 12.5 % (11.5-14.5); RDW Standard Deviation 41.5 fL (36.4-46.3); Red Blood Count 4.53 M/uL (4.20-5.40); White Blood Count 6.93 K/ul (4.8-10.8)
[2023-03-25] MEDS: HYDROmorphone INJ 0.5 MG/0.5 ML SYR IV PRN (07:27)
[2023-03-25 07:37] LABS: Albumin Globulin Ratio 1.4 (0.9-2); Albumin Level 3.6 gm/dl (3.4-5.0); Bilirubin,Total 6.1 mg/dl (0.2-1.0); Calcium 8.1 mg/dl (8.6-10.3); Creatinine Clr Calc Pharmacy 114.1 ml/min; Est GFR (African American) 121.1 ml/min; Est GFR (Non-African American) 104.5 ml/min; Globulin 2.5 gm/dl (2.5-4.0); Total Protein 6.1 gm/dl (6.0-8.3)
--- NOTE | 2023-03-25 11:03 | Gastroenterology Progress Note ---
Date of Service March 25, 2023 Assessment & Plan (1) Abnormal LFTs: (2) Abdominal pain: (3) Status post cholecystectomy: Plan Acute cholestatic liver injury. Diff dx: medication (NSAIDS) vs viral vs other. -Await viral studies as ordered. -Discussed with Avinash STONER. As negative MRCP, no clinical indication for ERCP. -Continue to trend liver and coag panels. AST and ALT are improving, expect TB will peak and then trend down over the next several weeks. -Stable for discharge from GI standpoint with close outpatient follow up when cleared by primary medical team. Admission and Anticipated Discharge Date Admission Date: March 24, 2023 Subjective Patient reports no pain at present but recently was given IV Dilaudid. No nausea or vomiting. Liver panel demonstrates improved AST/ALT but TB did bump to 6 today and she reports noticing some jaundice today. +dark urine. No pruritus. Viral studies pending. Reviewed case with Avinash STONER due to question of ERCP by surgical team. Review of Systems Constitutional: no fever and no chills Gastrointestinal: as per Subjective / HPI Physical Exam Constitutional: WD/WN, vitals as above Respiratory: normal respiratory effort, lungs clear to auscultation Cardiovascular: RRR, no murmur, no edema Gastrointestinal (Abdomen): normal bowel sounds, soft, nontender, no hepatosplenomegaly Psychiatric: A+Ox3, euthymic affect Results & Data Results & Data Vital Signs (Past 12 Hours) Vital Signs Temp Pulse Resp BP Pulse Ox O2 Del Method 03/25/23 08:35 Room Air 03/25/23 07:12 36.6 C 69 17 109/74 97 Room Air Diagnostic Findings Laboratory Results WBC 6.93 K/ul (4.8-10.8) 03/25/23 06:59 RBC 4.53 M/uL (4.20-5.40) 03/25/23 06:59 Hgb 13.9 g/dl (12.0-16.0) 03/25/23 06:59 Hct 41.1 % (37.0-47.0) 03/25/23 06:59 MCV 90.7 fL (80.0-100.0) 03/25/23 06:59 MCH 30.7 pg (25.0-34.0) 03/25/23 06:59 MCHC 33.8 g/dL (32.0-36.0) 03/25/23 06:59 RDW Std Deviation 41.5 fL (36.4-46.3) 03/25/23 06:59 RDW Coeff of Leandro 12.5 % (11.5-14.5) 03/25/23 06:59 Plt Count 255 K/uL (130-400) 03/25/23 06:59 MPV 10.4 fL (9.4-12.4) 03/25/23 06:59 Immature Gran % (Auto) 0.3 % 03/25/23 06:59 Neut % (Auto) 57.4 % 03/25/23 06:59 Lymph % (Auto) 33.2 % 03/25/23 06:59 [place] % (Auto) 5.5 % 03/25/23 06:59 Eos % (Auto) 2.7 % 03/25/23 06:59 Baso % (Auto) 0.9 % 03/25/23 06:59 Neut # (Auto) 3.98 K/uL (1.40-6.50) 03/25/23 06:59 Lymph # (Auto) 2.30 K/uL (1.20-3.40) 03/25/23 06:59 [place] # (Auto) 0.38 K/uL (0.11-0.59) 03/25/23 06:59 Eos # (Auto) 0.19 K/uL (0.00-0.50) 03/25/23 06:59 Baso # (Auto) 0.06 K/uL (0.00-0.20) 03/25/23 06:59 Immature Gran # (Auto) 0.02 K/uL (0.01-0.20) 03/25/23 06:59 PT 10.6 Seconds (9.0-12.0) 03/24/23 02:43 INR 1.0 (0.9-1.1) 03/24/23 02:43 Sodium 139 mmol/L (136-145) 03/25/23 06:59 Potassium 4.0 mmol/L (3.5-5.1) 03/25/23 06:59 Chloride 111 mmol/L (98-107) H 03/25/23 06:59 Carbon Dioxide 23 mmol/L (21-32) 03/25/23 06:59 Anion Gap 5 (3-11) 03/25/23 06:59 BUN 8 mg/dl (6-23) 03/25/23 06:59 Creatinine 0.73 mg/dl (0.6-1.2) 03/25/23 06:59 Est Cr Clr Drug Dosing 114.1 ml/min 03/25/23 06:59 Est GFR ( Amer) 121.1 ml/min 03/25/23 06:59 Est GFR (Non-Af Amer) 104.5 ml/min 03/25/23 06:59 BUN/Creatinine Ratio 11.0 (10-20) 03/25/23 06:59 Glucose 88 mg/dl (70-99(Fasting)) 03/25/23 06:59 Calcium 8.1 mg/dl (8.6-10.3) L 03/25/23 06:59 Magnesium 2.0 mg/dl (1.7-2.4) 03/25/23 06:59 Total Bilirubin 6.1 mg/dl (0.2-1.0) H D 03/25/23 06:59 AST 145 U/L (13-39) H 03/25/23 06:59 ALT 350 U/L (7-52) H 03/25/23 06:59 Alkaline Phosphatase 185 U/L (34-104) H 03/25/23 06:59 Total Protein 6.1 gm/dl (6.0-8.3) 03/25/23 06:59 Albumin 3.6 gm/dl (3.4-5.0) 03/25/23 06:59 Globulin 2.5 gm/dl (2.5-4.0) 03/25/23 06:59 Albumin/Globulin Ratio 1.4 (0.9-2) 03/25/23 06:59 Lipase 20 U/L (11-82) 03/24/23 02:43 Urine Color Dark Yellow 03/24/23 04:14 Urine Appearance Cloudy (Clear) A 03/24/23 04:14 Urine pH 7.0 (4.5-7.5) 03/24/23 04:14 Ur Specific [place] 1.014 (1.000-1.030) 03/24/23 04:14 Urine Protein Negative (Negative) 03/24/23 04:14 Urine Glucose (UA) Negative (Negative) 03/24/23 04:14 Urine Ketones Trace (Negative) H 03/24/23 04:14 Urine Blood Negative (Negative) 03/24/23 04:14 Urine Nitrite Negative (Negative) 03/24/23 04:14 Urine Bilirubin Negative (Negative) 03/24/23 04:14 Urine Urobilinogen Negative (Negative) 03/24/23 04:14 Ur Leukocyte Esterase Negative (Negative) 03/24/23 04:14 Urine WBC (Auto) 0 /hpf (0-5) 03/24/23 04:14 Urine RBC (Auto) 0-4 /hpf (0-4) 03/24/23 04:14 U Hyaline Cast (Auto) 0 /lpf (0-5) 03/24/23 04:14 U Epithel Cells (Auto) 10-20 /lpf (0-5) H 03/24/23 04:14 Urine Bacteria (Auto) Negative (Negative) 03/24/23 04:14 Impressions Liver Ultrasound 03/24/23 02:36 Exam(s): US LIVER EXAM: US Abdomen Limited CLINICAL HISTORY: Reason for exam: RUQ abd pain, s/p estela. stone. TECHNIQUE: Real-time ultrasound of the abdomen with image documentation. COMPARISON: No relevant prior studies available. FINDINGS: Gallbladder: Small amount of fluid within the gallbladder fossa measuring 2.7 x 0.5 x 1.6 cm. Gallbladder surgically absent. Kidneys: Unremarkable. No stones. No hydroureteronephrosis. Common bile duct is within normal limits given patient's postoperative status measuring 6.4 mm in diameter. IMPRESSION: 1. There is suggestion of a small amount of fluid seen within the gallbladder fossa. 2. Postoperative changes prior cholecystectomy Electronically signed by: Blaze Last MD 03/24/23 04:56 AM Cholangiopancreatography MRI 03/24/23 05:04 MRCP CLINICAL HISTORY: Abnormal liver function studies. COMPARISON STUDY: Abdominal CT dated 03/23/2023. Abdominal ultrasound dated 03/24/2023. TECHNIQUE: Abdominal MRCP is performed utilizing various T1 and T2-weighted sequences in the axial and coronal planes. 3-D reformats were created and assessed. IV contrast was not administered for this examination. Diffusion- weighted imaging was performed. The examination is degraded by motion artifact. FINDINGS: The gallbladder is surgically absent. There is minimal central intrahepatic biliary ductal dilatation. The common bile duct is normal in caliber, measuring up to 5 mm. No intraluminal filling defects are seen to suggest choledoch olithiasis. The pancreatic duct is normal in caliber. The unenhanced liver, spleen, adrenal glands, kidneys, and pancreas are grossly unremarkable. The abdominal aorta is normal in course and caliber. There is trace perihepatic fluid. No bowel obstruction is seen. No pleural effusion is identified. There is no evidence of destructive bony lesion. A small hiatal hernia is noted. IMPRESSION: Normal MRCP noting status post cholecystectomy. Dictated: 03/24/2023 8:48 AM Transcribed: 03/24/2023 9:02 AM Von [id number] Electronically signed by: Nathan Jay M.D. 03/24/2023 9:34 AM PG Care Time/CCT Total # of Minutes Spent Total Time Spent with Patient: Total time spent is greater than 50% in coordination of care (as documented) at patient's floor/unit and/or counseling patient: Coding Level of Care Code 70979 SUB INP/OBS CARE 3/50MIN Diagnoses Abnormal LFTs R79.89 Abdominal pain R10.9 Status post cholecystectomy Z90.49
[2023-03-25] MEDS: PANTOprazole 40 MG in SYRINGE 0 ML IV SCH (11:18)
--- NOTE | 2023-03-25 13:10 | Discharge Summary ---
Date of Service March 25, 2023 Admission HPI Per Admitting Provider The patient is a 37-year-old female with no significant past medical history, who presents to the emergency department as noted above. Repeat laboratory studies performed the morning of 03/24 now showing significantly worse liver enzymes: Total bilirubin 0.9-4.0, AST 15-552, ALT 17-550, and alkaline phosphatase 104-151. Liver ultrasound shows fluid in the gallbladder fossa. Patient now has MRCP ordered and is pending Principal Diagnosis Transaminitis of suspected viral etiology Discharge Exam General-alert and oriented x3, no fevers, no chills HEENT-head atraumatic and normocephalic, pupils equal and reactive to light, extraocular muscles intact. No scleral icterus Neck-no lymphadenopathy or thyromegaly, trachea midline Chest-clear to auscultation percussion. No rales wheezing or rhonchi Cardiac-regular rate and rhythm, normal S1 and S2 Abdomen-normal bowel sounds, nontender, no hepatosplenomegaly. She states the abdominal pain has resolved but she has received intravenous narcotics Extremities-no cyanosis, clubbing, or edema Neuro-cranial nerves II through XII intact, motor and sensory function within normal limits, strength symmetrical, no focal deficits Psych-normal affect, normal mood Discharge Data Allergies Allergy/AdvReac Type Severity Reaction Status Date / Time No Known Allergies Allergy Verified 01/29/19 17:41 Consultations 03/24/23 04:02 ED Decision to Admit Stat 03/24/23 05:41 Consult General Surgery Routine 03/24/23 10:50 Consult Gastroenterology Routine 03/24/23 13:03 Consult Gastroenterology Routine Ordered Studies 03/24/23 02:36 US liver Stat 03/24/23 05:04 MR MRCP Stat Hospital Course (1) Abnormal LFTs: Transaminitis present on admission. She may have passed a stone through the common bile duct or this could be of viral etiology. She appears to have cholestasis with elevated total bilirubin but no overt jaundice. GI consultation and recommendations appreciated. She is status postcholecystectomy earlier this year. (2) Right upper quadrant abdominal pain: Intermittent. Will treat symptomatically. History of cholecystectomy earlier this year Plan Home today, March 25. She will use oxycodone 5 mg as needed for any recurrent pain. She wishes to return to work tomorrow. Total Time Total Time Spent Total Time Spent (In Minutes): 45 minutes Discharge Plan Discharge Items Patient Disposition: Home - Self-Care Reason For Visit: ABD LFT'S Discharge Diagnosis: Acute cholestatic liver injury with transaminitis of suspected viral etiology Activity: Resume your previous activity Non-emergency contact: Primary Care Provider Call non-emergency contact if: you have any medication questions and your symptoms worsen Follow-up/Referrals: PCP,NO [Primary Care Provider] - Diet: Regular and Low Fat Addtl Attending Provider Instructions: Use Oxy IR as needed for any recurrent pain. Follow-up with primary care provider within 1 to 2 weeks Pending Studies at Discharge: Yes Studies:: Hepatitis profile Stand-Alone Forms: [employer] Smoking Cessation, Work/School Release Medications and DC Order Prescriptions: New oxycodone 5 mg tablet 5 mg PO Q6H PRN (Reason: pain) Qty: 14 0RF Continued ibuprofen [Advil] 200 mg Tablet 800 mg PO Q8H PRN (Reason: Fever Or Pain) ketorolac 10 mg tablet 10 mg PO Q8H 5 Days Qty: 15 0RF Discharge Orders: Discharge Order (Routine); Ordered 03/25/23 Ordered By: Preston Carlton Admission Data Admit Date/Time: 03/24/23 04:48 Attending Provider: Richard Weeks Admit Provider: Richard Weeks Primary Care Provider: PCP,NO Other Providers: Richard Weeks; Terrell Flores; Clarice Marie; Luca Reed; Amira Joyce; Katelin Nieves; Fide Black; Jen Regalado; Quentin Vee; Gregg Nevarez; Riki Del Castillo; Efra Moore; Mari Gonzales; Daniel Shin; Ashley Heredia; Arlyn Ho; Paty Schulz; Gogo Hein; Alonzo Collins; Acosta Olmos; Eric Calderon; Sharifa Hardy; Ramona Brady Jr Coding Level of Care Code 79342 INP/OBS DISCH >30 MIN Diagnoses Abnormal LFTs R79.89 Right upper quadrant abdominal pain R10.11
[2023-03-26 14:21] LABS: CMV IgG Antibody >10.00 U/mL; CMV IgM Antibody <30.00 AU/mL; HBSAG NON-REACTIVE (NON-REACTIVE); Hepatitis A Antibody IgM NON-REACTIVE (NON-REACTIVE); Hepatitis B Core Antibody IgM NON-REACTIVE (NON-REACTIVE)
== END 2023-03-25 13:46 | disposition home or self-care (01) | DRG 446 ==
LOC: ED 01:40 → EDINP 04:48 → 3N 20:42

== ENCOUNTER 2023-03-25 16:53 | Inpatient (IN) ==
--- NOTE | 2023-03-25 17:36 | ED Triage Note ---
Date of Service March 25, 2023 History of Present Illness This patient was briefly evaluated while in triage. An abbreviated physical exam was performed. This patient is a 37-year-old Female, past medical history of cholecystectomy in June 2022, who presents to the ED for evaluation of upper abdominal, chest pain and back pain. The patient was just discharged from our facility this afternoon, and reports that the oxycodone has not helped with her pain. Deep breathing worsens the pain. She denies any britt shortness of breath. Physical Exam CONSTITUTIONAL: Healthy and well nourished. Patient appears in severe discomfort. HEENT: No scleral icterus or conjunctival injection/pallor. RESPIRATORY: Clear to auscultation bilaterally with no wheezing, crackles, rhonchi or stridor. CARDIOVASCULAR: Regular rate and rhythm with no murmurs, rubs or gallops. GASTROINTESTINAL: Bowel sounds present in all quadrants. Patient has epigastric tenderness to palpation. MUSCULOSKELETAL: No tenderness to palpation across the anterior chest wall. INTEGUMENTARY: No rash or other significant dermatologic conditions noted. HEMATOLOGIC: No ecchymosis or petechiae. PSYCHIATRIC: Positive affect. NEUROLOGIC: No focal neurologic deficits noted. Initial orders for labs and / or imaging were placed and patient was placed in the waiting area until a bed is available. Please see further documentation for the full ED course.
[2023-03-25] MEDS ORDERED: ONDANSETRON INJ 2 MG/ML 2 ML VIAL IV STA (17:41)
[2023-03-25] MEDS ORDERED: MoRPHine SULFATE 4 MG/ML 1 ML CARP\\VIAL IV STA ×2 (17:41→20:33)
[2023-03-25 18:26] LABS: Basophils # (auto) 0.07 K/uL (0.00-0.20); Basophils % (auto) 0.5 %; Eosinophils # (auto) 0.16 K/uL (0.00-0.50); Eosinophils % (auto) 1.2 %; Hematocrit (blood only) 41.3 % (37.0-47.0); Hemoglobin 14.5 g/dl (12.0-16.0); Immature Granulocytes # (auto) 0.06 K/uL (0.01-0.20); Immature Granulocytes % (auto) 0.5 %; Lymphocytes # (auto) 1.92 K/uL (1.20-3.40); Lymphocytes % (auto) 14.4 %; Mean Corpuscular Hemoglobin 30.9 pg (25.0-34.0); Mean Corpuscular Hgb Conc 35.1 g/dL (32.0-36.0); Mean Corpuscular Volume 87.9 fL (80.0-100.0); Mean Platelet Volume 11.1 fL (9.4-12.4); Monocytes # (auto) 0.53 K/uL (0.11-0.59); Neutrophils # (auto) 10.55 K/uL (1.40-6.50); Neutrophils % (auto) 79.4 %; Platelet Count 284 K/uL (130-400); RDW Coefficient of Variation 12.5 % (11.5-14.5); White Blood Count 13.29 K/ul (4.8-10.8)
[2023-03-25 18:33] LABS: Appearance Urine Clear (Clear); Bacteria Urine Automated Negative (Negative); Blood Urine 3+ (Negative); Color Urine Dark Yellow; Glucose Urine UA Negative (Negative); Ketones Urine Negative (Negative); Leukocyte Esterase Urine Negative (Negative); Nitrite Urine Positive (Negative); Protein Urine Negative (Negative); Specific Gravity Urine 1.014 (1.000-1.030); Urobilinogen Urine Negative (Negative); WBC Urine Automated 0 /hpf (0-5); pH Urine 5.5 (4.5-7.5)
[2023-03-25 18:34] LABS: Bilirubin Urine 2+ (Negative)
[2023-03-25 18:44] LABS: Albumin Globulin Ratio 1.5 (0.9-2); Albumin Level 4.1 gm/dl (3.4-5.0); BUN Creatinine Ratio 10.1 (10-20); Bilirubin,Total 6.3 mg/dl (0.2-1.0); Calcium 8.6 mg/dl (8.6-10.3); Est GFR (African American) 110.1 ml/min; Globulin 2.8 gm/dl (2.5-4.0); Potassium 3.8 mmol/L (3.5-5.1); Total Protein 6.9 gm/dl (6.0-8.3)
[2023-03-25 18:49] LABS: Troponin I High Sensitivity 4.4 pg/ml (0-14)
[2023-03-25 18:51] LABS: Prothrombin Time 10.6 Seconds (9.0-12.0)
[2023-03-25] MEDS ORDERED: OPTIRAY 320 125ml IV ONE (19:46)
--- NOTE | 2023-03-25 20:19 | CT Scan Report ---
Exam(s): CTA CHEST W/WO Contrast IV Amt: 119 ml opti 320 EXAM: CT Angiography Chest Without and With Intravenous Contrast CLINICAL HISTORY: Reason for exam: C/P. TECHNIQUE: Axial computed tomographic angiography images of the chest without and with intravenous contrast. CTDI is 64 mGy and DLP is 2192.96 mGy-cm. Automated exposure control was utilized for the study. A dose lowering technique was utilized adhering to the principles of ALARA. MIP reconstructed images were created and reviewed. CONTRAST: Patient received 119 ml opti 320 of IV contrast COMPARISON: None FINDINGS: Pulmonary arteries: Unremarkable. No pulmonary embolus identified. Aorta: No acute findings. No aortic aneurysm or dissection. Lungs: Mild emphysematous changes, at the lung apices. Nonspecific 4 mm subpleural nodule at the lateral left lung base. If patient is at low risk, no further follow-up is necessary. If patient is at high risk, consider follow-up CT in 12 months. No consolidation. Pleural space: Unremarkable. No significant effusion. No pneumothorax. Heart: Unremarkable. No cardiomegaly. No significant pericardial effusion. No evidence of RV dysfunction. Bones/joints: No acute fracture. No dislocation. Soft tissues: Unremarkable. Lymph nodes: Unremarkable. No enlarged lymph nodes. IMPRESSION: 1. No pulmonary embolus identified. 2. No aortic aneurysm or dissection. 3. No acute pulmonary parenchymal abnormality identified. Electronically signed by: Ines Cabrera M.D. 03/25/23 20:18 PM
[2023-03-25] MEDS ORDERED: SODIUM CHLORIDE 0.9% 1,000 ML IV ONE ×2 (20:24→20:33)
--- NOTE | 2023-03-25 20:33 | CT Scan Report ---
Exam(s): CTA ABDOMEN + PELVIS With Contrast IV Amt: 119 ml opti 320 EXAM: CT Angiography Abdomen and Pelvis With Intravenous Contrast CLINICAL HISTORY: Reason for exam: Chest/abd pain. TECHNIQUE: Axial computed tomographic angiography images of the abdomen and pelvis with intravenous contrast. CTDI is 64 mGy and DLP is 2192.96 mGy-cm. Automated exposure control was utilized for the study. A dose lowering technique was utilized adhering to the principles of ALARA. MIP reconstructed images were created and reviewed. CONTRAST: Patient received 119 ml opti 320 of IV contrast COMPARISON: CT abdomen/pelvis on 03/23/2023. MRCP on 03/24/2023. FINDINGS: VASCULATURE: Aorta: No acute findings. No abdominal aortic aneurysm. No dissection. Celiac trunk and mesenteric arteries: No acute findings. No occlusion or significant stenosis. Renal arteries: No acute findings. No occlusion or significant stenosis. Iliac arteries: No acute findings. No occlusion or significant stenosis. Lung bases: Mild dependent atelectasis bilaterally. ABDOMEN: Liver: Hepatomegaly. Gallbladder and bile ducts: Prior cholecystectomy. Please see below. Pancreas: Fat stranding or small amount of fluid in the gallbladder fossa and along the lena hepatis and pancreatic head region is nonspecific and new compared to prior exams. Question postoperative edema or infectious/inflammatory process versus acute pancreatitis. No ductal dilation. Spleen: Small splenule. Adrenals: Unremarkable. No mass. Kidneys and ureters: Unremarkable. No hydronephrosis. No solid mass. Stomach and bowel: Unremarkable. No obstruction. No mucosal thickening. PELVIS: Appendix: Normal appendix. Bladder: Unremarkable. No mass. Reproductive: Unremarkable as visualized. ABDOMEN and PELVIS: Intraperitoneal space: Small amount of fluid in the posterior pelvis. No free air. Bones/joints: No acute fracture. No dislocation. Soft tissues: Small fat-containing umbilical hernia. Lymph nodes: Unremarkable. No enlarged lymph nodes. IMPRESSION: Fat stranding or small amount of fluid in the gallbladder fossa and along the lena hepatis and pancreatic head region is nonspecific and new compared to prior exams. Question postoperative edema or infectious/inflammatory process versus acute pancreatitis. Electronically signed by: Ines Cabrera M.D. 03/25/23 20:32 PM
[2023-03-25 20:36] LABS: Monotest Negative (Negative)
[2023-03-25] MEDS ORDERED: CEFEPIME 2,000 MG/20 ML VIAL IV STA (20:39)
[2023-03-25 21:01] LABS: Lyme Ab IgG w/WB Rflx Negative (Negative); Lyme Ab IgM w/WB Rflx Negative (Negative)
[2023-03-25] MEDS ORDERED: HYDROmorphone INJ 1 MG/ML SYRINGE IV STA (21:29)
[2023-03-25] MEDS ORDERED: HYDROmorphone INJ 1 MG/ML SYRINGE ONE (21:38)
--- NOTE | 2023-03-25 21:54 | History & Physical Report ---
Date of Service March 25, 2023 Assessment & Plan (1) Right upper quadrant abdominal pain: (2) Acute epigastric pain: (3) Abnormal LFTs: (4) Pancreatitis: Plan Abdominal pain/ abnormal LFTs/ Pancreatitis? - Acutely worsening abdominal pain on epigastric region , RUQ quadrant, that radiate to her back 10/10 on pain scale -Patient admitted 2 days ago with similar pain, paint attributed to acute cholestatic liver injury (unknown etiology NSAID vs viral) , MRCP normal -Abdomen/Pelvis CT: Fat stranding or small amount of fluid in the gallbladder fossa and along the lena hepatis and pancreatic head region is nonspecific -Total bilirubin: 6.3, AST 17, ALT: 330, Alkaline phosphate: 223 -chemistry profile WNL -Lipase: WNL - s/p Cefepime in the ER -Admitted to med/surg -NPO -IV fluids, LR 100 ml/hr -Pain medication prn -Triglycerides and Acetaminophen levels -Consult Gastroenterology -Hepatitis panel pending -Amylase, Lipase AM -CBC, CMP AM -Liver enzymes AM Code: Full code DVT prophylaxis: Lovenox 40 mg SQ daily Diet: NPO History of Present Illness Primary Care Provider: NO PCP 37 y/o female with no pertinent PMH here due to worsening abdominal pain/epigastric pain that radiate to her back 10/10 on pain scale. She had a cholecystectomy on June 2022. Patient was discharged today after evaluation for similar symptoms. Gastroenterology was on case, diagnosed her with acute cholestatic liver injury (unknown etiology medication vs viral). Discharge with oxycodone that did not improved her pain. MRCP negative for biliary obstruction. She denied any new medication. Denied alcohol consumption. Denied fever, vomiting, nausea, SOB, any urinary symptoms, chest pain, palpitations, diarrhea or any other symptoms In the ER she received Morphine and a dose of Cefepime. Abdomen/Pelvis CT: Fat stranding or small amount of fluid in the gallbladder fossa and along the lena hepatis and pancreatic head region is nonspecific. Mild leukocytosis, Hgb stable at 14. Platelet and INR were normal. Lipase normal levels. Hepatitis panel pending. CMV pending. Lyme disease Ab negative. Allergies Allergy/AdvReac Type Severity Reaction Status Date / Time No Known Allergies Allergy Verified 03/25/23 20:49 Home Medications Medication Instructions Recorded Confirmed Type ibuprofen 200 mg tablet (Advil) 600 mg PO DIRECTED PRN 01/29/19 03/25/23 History FEVER/PAIN Past Med/Surg History Medical History Right upper quadrant abdominal pain Acute calculous cholecystitis Acute cholecystitis due to biliary calculus Encounter for pre-operative examination No pertinent past medical history Surgical History No significant past surgical history Social History Smoking Status: Never smoker Tobacco Type: Cigarettes Second Hand Exposure: No; Do You Dip or Chew Tobacco: No; Hx Alcohol Use: No Hx Substance Use: No Preferred Language: Setswana Communication Ability: Effective 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: No Beliefs That Will Affect Care: None Current Living Situation: Spouse and Family Other Information That Helps Us Care for You: No Feels Safe at Home: Yes Safety Concerns: Feels Safe At This Time Assistive Devices: None Review of Systems Review of Systems: as per HPi Physical Exam Constitutional: WD/WN, vitals as above well developed and + ill appearing Respiratory: normal respiratory effort, lungs clear to auscultation Cardiovascular: RRR, no murmur, no edema Gastrointestinal (Abdomen): Inspection/Auscultation: normal bowel sounds; abdomen not distended Percussion/Palpation: + abdomen tender (RUQ/ epigastric, radiate to her back) and abdomen soft; no guarding, abdomen not rigid and no abdominal mass Musculoskeletal: no cyanosis or clubbing, extremities motor strength 5/5 Results & Data Results & Data Vital Signs (Past 12 Hours) Vital Signs Temp Pulse Pulse Resp BP BP Pulse Ox 03/25/23 21:02 81 15 136/80 97 03/25/23 20:47 83 03/25/23 20:29 78 16 97 03/25/23 20:28 75 16 99/53 L 97 03/25/23 17:32 37.2 C 92 H 18 144/85 H 99 O2 Del Method 03/25/23 21:02 Room Air 03/25/23 20:47 03/25/23 20:29 Room Air 03/25/23 20:28 Room Air 03/25/23 17:32 Room Air Code Status & VTE Plan VTE Prophylaxis Plan VTE Prophylaxis will be ordered: Yes Supervising Physician Co-Signing Physician Notes Patient seen and examined, chart reviewed, case discussed with Dr. Manuel Love and I agree with the assessment and plan as above. In brief, patient is a 37yo female recently admitted to [facility] with abdominal pain and abnormality in LFTs - mixed obstructive/hepatocellular pattern. During that admission patient had a liver ultrasound that showed fluid in the gallbladder fossa. MRCP was obtained as well which was normal. Patient was evaluated by GI - LFT abnormalities thought to be secondary to toxin/medication induced vs viral etiology. Acute hepatitis panel sent and is pending. Patient returns today with worsening abdominal pain. Pain is severe, epigastric with bandlike radiation across the upper abdomen and through to the back. In the ER patient is afebrile, HD stable. In moderate distress secondary to pain +scleral icterus and mild jaundice MMM, Neck supple +S1/S2, regular, no m/r/g Lungs CTA Abd - tender in the epigastric region with voluntary guarding Labs and images reviewed WBC=13.29 Mixed hepatocellular/cholestatic LFTs wtih GTQ=496, FZP=690, NO=814 and Tbili=6.3 - similar to values from earlier today Normal platelets, Albumin and INR CT with fat stranding or small amount of fluid in the gallbladder fossa and a long the lena hepatis and pancreatic head new from prior exam Assessment/Plan Ongoing abdominal pain, abnormalities in LFTs. Lipase is normal. ?early pancreatitis. liver injury - etiology unclear - medical, viral? -Keep NPO -IVF, pain control and anti-emetics -GI consultation appreciated -Repeat LFTs in AM -Awaiting viral panel for acute hepatitis Consider anti-SMA for possible autoimmune source Remainder of plan as above Resident Activity Tracking Resident Involvement: Resident Care Provided Care Provided: Adult Hospital Medicine
[2023-03-25] MEDS ORDERED: HYDROmorphone INJ 1 MG/ML SYRINGE IV PRN (22:46)
[2023-03-25] MEDS ORDERED: MoRPHine SULFATE 2 MG/ML CARP IV PRN (22:46)
[2023-03-25] MEDS ORDERED: POLYETHYLENE (MIRALAX) 17 GM PACK PO PRN (22:46)
[2023-03-25] MEDS: ONDANSETRON INJ 2 MG/ML 2 ML VIAL IV PRN (23:08)
[2023-03-25] MEDS: KETOROLAC TROMETHAMINE 15 MG/ML VIAL IV PRN (23:08)
[2023-03-25] MEDS: LACTATED RINGER'S 1,000 ML IV SCH (23:11)
--- NOTE | 2023-03-25 23:22 | Emergency Department Note ---
Impression & Plan Abdominal pain ADMIT ED Provider Note HPI: History obtained from patient. The patient is a 37-year-old female who presents emergency department with chief complaint of abdominal pain. Patient was discharged from [facility] earlier today following workup for transaminitis and abdominal pain. She had an MRCP done yesterday that did not show any evidence of any obstructive pathology. She was discharged home following evaluation by gastroenterology and general surgery. Patient states that since she left the hospital she has continued to have upper abdominal pain that radiates to her back. She states at times the pain is very severe. Patient denies any vomiting. On arrival here to the ED the patient is hemodynamically stable, she is in moderate distress secondary to abdominal pain on my initial assessment ROS: - Per HPI Differential Diagnosis: Choledocholithiasis, viral illness, mononucleosis, Lyme disease, hepatitis, liver mass, amongst other potential pathologies. *Outpatient medications and allergy history reviewed. 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 Lab work shows a new leukocytosis at 13.29, hemoglobin is stable at 14.5, platelet count is within normal limits, CMP shows transaminitis that is essentially unchanged from yesterday, bilirubin of 6.3, AST of 117, ALT 330, alk phos 233. Lipase is normal. Troponin is negative x 1, EKG per my interpretation shows normal sinus rhythm without any acute ischemic changes. Urinalysis is nitrite positive with 3+ blood, leukocyte esterasenegative and without significant pyuria, will send for culture. CT angiography of the chest as well as CT angiography of the abdomen and pelvis were obtained. CT angiography of the chest does not show any evidence of any aortic dissection or pulmonary embolism. CT angiography of the abdomen and pelvis was obtained and shows nonspecific inflammation near the pancreatic head. This does appear new in comparison to previous imaging per interpreting radiologist. Unclear source for the patient's abdominal pain at this time but given new findings on CT imaging and leukocytosis, blood cultures were drawn in the ED, patient was administered a dose of IV cefepime. Doubt obstructive pathology given recent negative MRCP. Case was discussed with the on-call hospitalist, Dr. Fisher, the patient will be admitted for further management and GI consultation. Patient is in agreement to this plan. Consultants/Discussions held with other healthcare providers: -Hospitalist, Dr. Fisher Disposition discussion held by myself with: -Patient Diagnosis: 1. Abdominal pain, acute 2. Transaminitis, subacute 3. Elevated bilirubin, subacute 4. Leukocytosis, acute, nonspecific Disposition: Admission Tex Lehman DO Emergency Medicine Past Med/Surg History Medical History Right upper quadrant abdominal pain Acute calculous cholecystitis Acute cholecystitis due to biliary calculus Encounter for pre-operative examination No pertinent past medical history Surgical History No significant past surgical history Social History Smoking Status: Never smoker Tobacco Type: Cigarettes Hx Alcohol Use: No Hx Substance Use: No Preferred Language: Romanian Communication Ability: Effective Substation Operator Automatic Required: No Beliefs That Will Affect Care: None Current Living Situation: Family Feels Safe at Home: Yes Assistive Devices: None Allergies Allergies Allergy/AdvReac Type Severity Reaction Status Date / Time No Known Allergies Allergy Verified 03/25/23 20:49 Home Meds Home Medications Medication Instructions Recorded Confirmed ibuprofen 200 mg tablet (Advil) 600 mg PO DIRECTED PRN 01/29/19 03/25/23 FEVER/PAIN Results & Data (ED) Vital Signs Vital Signs - 24 hr 03/25/23 17:32 03/25/23 20:28 03/25/23 20:29 Temperature 37.2 C Temperature Source Temporal Artery Scan Pulse Rate 92 H 78 Pulse Rate [Apical] 75 Respiratory Rate 18 16 16 Respiratory Effort / Characteristics Non-Labored Spontaneous Non-Labored Spontaneous Respiratory Depth Normal Normal Respiratory Pattern Regular Regular Blood Pressure 144/85 H Blood Pressure [Left Arm] 99/53 L Blood Pressure Mean 104 Blood Pressure Mean [Left Arm] 68 Blood Pressure Position Sitting Blood Pressure Position [Left Arm] Semi-fowlers Pulse Oximetry 99 97 97 Oxygen Delivery Method Room Air Room Air Room Air Sepsis Recent Fever Within 48 Hours No Sepsis New/Unexplained Change in Mental Status N/A Sepsis Action Taken by Nursing No Action Required 03/25/23 20:47 03/25/23 21:02 Temperature Temperature Source Pulse Rate 83 Pulse Rate [Apical] 81 Respiratory Rate 15 Respiratory Effort / Characteristics Respiratory Depth Respiratory Pattern Blood Pressure Blood Pressure [Left Arm] 136/80 Blood Pressure Mean Blood Pressure Mean [Left Arm] 98 Blood Pressure Position Blood Pressure Position [Left Arm] Pulse Oximetry 97 Oxygen Delivery Method Room Air Sepsis Recent Fever Within 48 Hours Sepsis New/Unexplained Change in Mental Status Sepsis Action Taken by Nursing Laboratory Data 03/25/23 18:02 03/25/23 18:02 Lab Results 03/25/23 Range/Units 18:02 WBC 13.29 H (4.8-10.8) K/ul RBC 4.70 (4.20-5.40) M/uL Hgb 14.5 (12.0-16.0) g/dl Hct 41.3 (37.0-47.0) % MCV 87.9 (80.0-100.0) fL MCH 30.9 (25.0-34.0) pg MCHC 35.1 (32.0-36.0) g/dL RDW Std Deviation 40.0 (36.4-46.3) fL RDW Coeff of Leandro 12.5 (11.5-14.5) % Plt Count 284 (130-400) K/uL MPV 11.1 (9.4-12.4) fL Immature Gran % (Auto) 0.5 % Neut % (Auto) 79.4 % Lymph % (Auto) 14.4 % [place] % (Auto) 4.0 % Eos % (Auto) 1.2 % Baso % (Auto) 0.5 % Neut # (Auto) 10.55 H (1.40-6.50) K/uL Lymph # (Auto) 1.92 (1.20-3.40) K/uL [place] # (Auto) 0.53 (0.11-0.59) K/uL Eos # (Auto) 0.16 (0.00-0.50) K/uL Baso # (Auto) 0.07 (0.00-0.20) K/uL Immature Gran # (Auto) 0.06 (0.01-0.20) K/uL PT 10.6 (9.0-12.0) Seconds INR 1.0 (0.9-1.1) Sodium 139 (136-145) mmol/L Potassium 3.8 (3.5-5.1) mmol/L Chloride 109 H (98-107) mmol/L Carbon Dioxide 22 (21-32) mmol/L Anion Gap 8 (3-11) BUN 8 (6-23) mg/dl Creatinine 0.79 (0.6-1.2) mg/dl Est Cr Clr Drug Dosing 106.0 ml/min Est GFR ( Amer) 110.1 ml/min Est GFR (Non-Af Amer) 95.0 ml/min BUN/Creatinine Ratio 10.1 (10-20) Glucose 115 H (70-99(Fasting)) mg/dl Calcium 8.6 (8.6-10.3) mg/dl Total Bilirubin 6.3 H (0.2-1.0) mg/dl AST 117 H (13-39) U/L ALT 330 H (7-52) U/L Alkaline Phosphatase 233 H (34-104) U/L Troponin I High Sens 4.4 (0-14) pg/ml Total Protein 6.9 (6.0-8.3) gm/dl Albumin 4.1 (3.4-5.0) gm/dl Globulin 2.8 (2.5-4.0) gm/dl Albumin/Globulin Ratio 1.5 (0.9-2) Lipase 13 (11-82) U/L Lyme Disease IgG Ab Negative (Negative) Lyme Disease IgM Ab Negative (Negative) Monoscreen Negative (Negative) Administered Medications Lactated Ringer's (Lr) 1,000 mls @ 100 mls/hr IV .Q10H CONNOR Stop: 04/24/23 21:59 Last Admin: 03/25/23 23:11 Dose: 100 mls/hr Documented By: JILL Ketorolac Tromethamine (Ketorolac Tromethamine 15 Mg/Ml Vial) 15 mg IV Q6H PRN PRN Reason: Mild-Mod Pain (Scale 1-6) Stop: 03/30/23 22:45 Last Admin: 03/25/23 23:08 Dose: 15 mg Documented By: JILL Ondansetron HCl (Ondansetron Inj 2 Mg/Ml 2 Ml Vial) 4 mg IV Q6H PRN PRN Reason: Nausea Stop: 04/24/23 22:45 Last Admin: 03/25/23 23:08 Dose: 4 mg Documented By: JILL Discontinued Medications Hydromorphone HCl (Hydromorphone Inj 1 Mg/Ml Syringe) 1 mg IV NOW STA Stop: 03/25/23 21:30 Last Admin: 03/25/23 21:52 Dose: Not Given Documented By: Hydromorphone HCl (Hydromorphone Inj 1 Mg/Ml Syringe) Confirm Administered Dose 1 mg .ROUTE .STK-MED ONE Stop: 03/25/23 21:39 Last Admin: 03/25/23 21:41 Dose: 1 mg Documented By: Sodium Chloride (Nss) 1,000 mls @ 999 mls/hr IV .Q1H1M ONE Stop: 03/25/23 21:24 Last Infusion: 03/25/23 21:53 Dose: Infused Documented By: Admin: 03/25/23 20:30 Dose: 999 mls/hr Documented By: Sodium Chloride (Nss) 1,000 mls @ 999 mls/hr IV .Q1H1M ONE Stop: 03/25/23 21:33 Last Infusion: 03/25/23 22:46 Dose: Infused Documented By: Admin: 03/25/23 21:34 Dose: 999 mls/hr Documented By: Cefepime HCl (Maxipime) 2,000 mg in 20 mls @ 5 mls/min IV NOW STA; Protocol Stop: 03/25/23 20:42 Last Admin: 03/25/23 21:00 Dose: 5 mls/min Documented By: Ioversol (Optiray 320 125ml) 119 ml IV ONCE ONE Stop: 03/25/23 19:47 Last Admin: 03/25/23 19:47 Dose: 119 ml Documented By: PLW Morphine Sulfate (Morphine Sulfate 4 Mg/Ml 1 Ml Carp\Vial) 4 mg IV NOW STA Stop: 03/25/23 17:42 Last Admin: 03/25/23 17:55 Dose: 4 mg Documented By: NRB Morphine Sulfate (Morphine Sulfate 4 Mg/Ml 1 Ml Carp\Vial) 4 mg IV NOW STA Stop: 03/25/23 20:34 Last Admin: 03/25/23 20:40 Dose: 4 mg Documented By: AB Ondansetron HCl (Ondansetron Inj 2 Mg/Ml 2 Ml Vial) 4 mg IV NOW STA Stop: 03/25/23 17:42 Last Admin: 03/25/23 17:56 Dose: 4 mg Documented By: NRB Imaging Data Radiologist's Impression: Abdomen/Pelvis CTA 03/25/23 17:39 Exam(s): CTA ABDOMEN + PELVIS With Contrast IV Amt: 119 ml opti 320 EXAM: CT Angiography Abdomen and Pelvis With Intravenous Contrast CLINICAL HISTORY: Reason for exam: Chest/abd pain. TECHNIQUE: Axial computed tomographic angiography images of the abdomen and pelvis with intravenous contrast. CTDI is 64 mGy and DLP is 2192.96 mGy-cm. Automated exposure control was utilized for the study. A dose lowering technique was utilized adhering to the principles of ALARA. MIP reconstructed images were created and reviewed. CONTRAST: Patient received 119 ml opti 320 of IV contrast COMPARISON: CT abdomen/pelvis on 03/23/2023. MRCP on 03/24/2023. FINDINGS: VASCULATURE: Aorta: No acute findings. No abdominal aortic aneurysm. No dissection. Celiac trunk and mesenteric arteries: No acute findings. No occlusion or significant stenosis. Renal arteries: No acute findings. No occlusion or significant stenosis. Iliac arteries: No acute findings. No occlusion or significant stenosis. Lung bases: Mild dependent atelectasis bilaterally. ABDOMEN: Liver: Hepatomegaly. Gallbladder and bile ducts: Prior cholecystectomy. Please see below. Pancreas: Fat stranding or small amount of fluid in the gallbladder fossa and along the lena hepatis and pancreatic head region is nonspecific and new compared to prior exams. Question postoperative edema or infectious/inflammatory process versus acute pancreatitis. No ductal dilation. Spleen: Small splenule. Adrenals: Unremarkable. No mass. Kidneys and ureters: Unremarkable. No hydronephrosis. No solid mass. Stomach and bowel: Unremarkable. No obstruction. No mucosal thickening. PELVIS: Appendix: Normal appendix. Bladder: Unremarkable. No mass. Reproductive: Unremarkable as visualized. ABDOMEN and PELVIS: Intraperitoneal space: Small amount of fluid in the posterior pelvis. No free air. Bones/joints: No acute fracture. No dislocation. Soft tissues: Small fat-containing umbilical hernia. Lymph nodes: Unremarkable. No enlarged lymph nodes. IMPRESSION: Fat stranding or small amount of fluid in the gallbladder fossa and along the lena hepatis and pancreatic head region is nonspecific and new compared to prior exams. Question postoperative edema or infectious/inflammatory process versus acute pancreatitis. Electronically signed by: Ines Cabrera M.D. 03/25/23 20:32 PM Chest CTA 03/25/23 17:39 Exam(s): CTA CHEST W/WO Contrast IV Amt: 119 ml opti 320 EXAM: CT Angiography Chest Without and With Intravenous Contrast CLINICAL HISTORY: Reason for exam: C/P. TECHNIQUE: Axial computed tomographic angiography images of the chest without and with intravenous contrast. CTDI is 64 mGy and DLP is 2192.96 mGy-cm. Automated exposure control was utilized for the study. A dose lowering technique was utilized adhering to the principles of ALARA. MIP reconstructed images were created and reviewed. CONTRAST: Patient received 119 ml opti 320 of IV contrast COMPARISON: None FINDINGS: Pulmonary arteries: Unremarkable. No pulmonary embolus identified. Aorta: No acute findings. No aortic aneurysm or dissection. Lungs: Mild emphysematous changes, at the lung apices. Nonspecific 4 mm subpleural nodule at the lateral left lung base. If patient is at low risk, no further follow-up is necessary. If patient is at high risk, consider follow-up CT in 12 months. No consolidation. Pleural space: Unremarkable. No significant effusion. No pneumothorax. Heart: Unremarkable. No cardiomegaly. No significant pericardial effusion. No evidence of RV dysfunction. Bones/joints: No acute fracture. No dislocation. Soft tissues: Unremarkable. Lymph nodes: Unremarkable. No enlarged lymph nodes. IMPRESSION: 1. No pulmonary embolus identified. 2. No aortic aneurysm or dissection. 3. No acute pulmonary parenchymal abnormality identified. Electronically signed by: Ines Cabrera M.D. 03/25/23 20:18 PM Discharge Plan Visit Data Chief Complaint: Abdominal Pain Stated Complaint: ABD, BACK PAIN ED Provider: Tex Lehman Discharge Problem: Abdominal pain Patient Disposition: Admitted As Inpatient Discharge Instructions Interventions: ED Discharge Assessment Last Done: 03/25/23 22:21 Discharge Problem: Abdominal pain Qualifiers: Abdominal location: epigastric Qualified Code(s): R10.13 - Epigastric pain
[2023-03-26] MEDS: HYDROmorphone INJ 0.5 MG/0.5 ML SYR IV PRN ×2 (03:22→07:32)
--- NOTE | 2023-03-26 03:44 | Billing Data ---
Date of Service March 25, 2023 Coding Level of Care Code 46880 INT INP/OBS CARE
[2023-03-26] MEDS: LACTATED RINGER'S 1,000 ML IV SCH ×4 (04:02→20:33)
[2023-03-26] MEDS ORDERED: Nursing to Pharmacy Communication SCH (05:15)
[2023-03-26] MEDS ORDERED: ENOXAPARIN INJ 40 MG/0.4 ML SYR SQ SCH (06:00)
[2023-03-26] MEDS: KETOROLAC TROMETHAMINE 15 MG/ML VIAL IV PRN (06:14)
[2023-03-26] MEDS: ONDANSETRON INJ 2 MG/ML 2 ML VIAL IV PRN ×2 (06:14→21:24)
[2023-03-26 07:19] LABS: Basophils # (auto) 0.04 K/uL (0.00-0.20); Basophils % (auto) 0.6 %; Eosinophils # (auto) 0.18 K/uL (0.00-0.50); Eosinophils % (auto) 2.6 %; Hematocrit (blood only) 37.5 % (37.0-47.0); Hemoglobin 12.7 g/dl (12.0-16.0); Immature Granulocytes # (auto) 0.02 K/uL (0.01-0.20); Immature Granulocytes % (auto) 0.3 %; Lymphocytes # (auto) 1.86 K/uL (1.20-3.40); Lymphocytes % (auto) 26.9 %; Mean Corpuscular Hemoglobin 30.3 pg (25.0-34.0); Mean Corpuscular Hgb Conc 33.9 g/dL (32.0-36.0); Mean Corpuscular Volume 89.5 fL (80.0-100.0); Mean Platelet Volume 10.9 fL (9.4-12.4); Monocytes # (auto) 0.52 K/uL (0.11-0.59); Monocytes % (auto) 7.5 %; Neutrophils % (auto) 62.1 %; Platelet Count 255 K/uL (130-400); RDW Coefficient of Variation 12.6 % (11.5-14.5); RDW Standard Deviation 41.2 fL (36.4-46.3); Red Blood Count 4.19 M/uL (4.20-5.40); White Blood Count 6.92 K/ul (4.8-10.8)
[2023-03-26 08:04] LABS: Albumin Globulin Ratio 1.6 (0.9-2); Albumin Level 3.4 gm/dl (3.4-5.0); BUN Creatinine Ratio 8.2 (10-20); Bilirubin Direct 3.1 mg/dl (0-0.2); Bilirubin,Total 5.4 mg/dl (0.2-1.0); Creatinine Clr Calc Pharmacy 137.2 ml/min; Est GFR (African American) 133.3 ml/min; Globulin 2.1 gm/dl (2.5-4.0); Potassium 3.7 mmol/L (3.5-5.1); Total Protein 5.5 gm/dl (6.0-8.3)
--- NOTE | 2023-03-26 08:28 | Hospitalist Progress Note ---
Date of Service March 26, 2023 Assessment & Plan (1) Pancreatitis: Plan: Presented with abdominal pain w/ history of cholecystectomy earlier this year in June with Dr Briceno. Dc'd on 03/25, TB elevated On admission, LFTs elevated: TB 6.3, AST 117, AST 330, ALP 233. CTAP w/ Fat stranding or small amount of fluid in the gallbladder fossa and along the lena hepatis and pancreatic head region is nonspecific and new compared to prior exams. Question postoperative edema or infectious/inflammatory process versus acute pancreatitis. IVF: LR @ 200cc/hr Pain control/antiemetics prn Added dilaudid 1mg x 1 NOW, decreased frequency for prn to q2h and can increase to 1mg as needed Antiemetics -- added Phenergan for zofran ineffective LFTs slightly improving on AM labs: TB 5.4, AST 70, ALT 227, ALP 202. Direct bili 3.1 (not prior checked). Lipase elevation 869, amylase 189. Prior lipase wnl. ?passed stone. Did have "normal" MCRP on 03/24 GI consulted -- appreciate recs/assistance Planning for EUS/posible liver biopsy this afternoon. F/u Serology to r/o infectious etiology (EBV/CMV pending from [place] last admission) Monitor labs on repeat, consideration for anti-SM (2) Right upper quadrant abdominal pain: Plan: ?passed stone vs other GI consulted, pain control, EUS for further eval today (3) Acute epigastric pain: (4) Abnormal LFTs: Plan: improved on repeat, ?passed stone. Recent negative MRCP. ?sphincter of oddi dysfunction. EUS for further eval as above monitor CMV/EBV testing GI on consult as above Plan Lovenox SQ for DVT proph NPO for EUS this afternoon w/ [facility] Admission and Anticipated Discharge Date Admission Date: March 25, 2023 Supervising Physician Co-Signing Physician Notes The patient was not seen by me. The chart was reviewed. Case discussed with SB Viera. Agree with assessment and plan Subjective Eval this morning, sitting up in bed, appearing very uncomfortable and requesting pain medications at present. Discussed will order one time Dilaudid 1mg x 1 now, IVF resumed this morning. Discussed continued NPO through today. She reports she had not had any improvement in abdominal pain prior to discharge yesterday. Discussed consultation w/ GI, ?stone. Denied any drinking (1 drink with thanksgiving), had her gallbladder out in June of this year, was doing well up until recently. Physical Exam Physical Exam: General: WD/WN female sitting up in bed, at bedside, moderately uncomfortable appearing/holding her abdomen HEENT: head normocephalic, atraumatic, mm slightly dry, trachea midline, eyes anicteric Resp; Even/unlabored, diminished in the bases/associated crackles, no w/c, on room air CV: RRR, no significant mrg, no pitting edema/calf tenderness GI: +BS, tenderness to palpation RUQ/epigastric/upper abdominal velasco : no jane MSK/Neuro: no focal deficits, no slurred speech, answering questions appropriately Skin: slight jaundiced appearance Results & Data Results & Data Vital Signs (Past 12 Hours) Vital Signs Temp Pulse Pulse Resp BP Pulse Ox O2 Del Method 03/25/23 22:28 Room Air 03/25/23 22:28 37.0 C 86 18 137/78 96 Room Air 03/25/23 22:28 37.0 C 86 18 137/78 98 Room Air 03/25/23 22:21 Room Air 03/25/23 21:02 81 15 136/80 97 Room Air 03/25/23 20:47 83 03/25/23 20:29 78 16 97 Room Air 03/25/23 20:28 75 16 99/53 L 97 Room Air Laboratory Results 03/26/23 03/25/23 03/25/23 Range/Units 06:38 Unknown 23:10 WBC 6.92 (4.8-10.8) K/ul RBC 4.19 L (4.20-5.40) M/uL Hgb 12.7 (12.0-16.0) g/dl Hct 37.5 (37.0-47.0) % MCV 89.5 (80.0-100.0) fL MCH 30.3 (25.0-34.0) pg MCHC 33.9 (32.0-36.0) g/dL RDW Std Deviation 41.2 (36.4-46.3) fL RDW Coeff of Leandro 12.6 (11.5-14.5) % Plt Count 255 (130-400) K/uL MPV 10.9 (9.4-12.4) fL Immature Gran % (Auto) 0.3 % Neut % (Auto) 62.1 % Lymph % (Auto) 26.9 % Gila % (Auto) 7.5 % Eos % (Auto) 2.6 % Baso % (Auto) 0.6 % Neut # (Auto) 4.30 (1.40-6.50) K/uL Lymph # (Auto) 1.86 (1.20-3.40) K/uL Gila # (Auto) 0.52 (0.11-0.59) K/uL Eos # (Auto) 0.18 (0.00-0.50) K/uL Baso # (Auto) 0.04 (0.00-0.20) K/uL Immature Gran # (Auto) 0.02 (0.01-0.20) K/uL PT (9.0-12.0) Seconds INR (0.9-1.1) Sodium 140 (136-145) mmol/L Potassium 3.7 (3.5-5.1) mmol/L Chloride 110 H (98-107) mmol/L Carbon Dioxide 24 (21-32) mmol/L Anion Gap 6 (3-11) BUN 5 L (6-23) mg/dl Creatinine 0.61 (0.6-1.2) mg/dl Est Cr Clr Drug Dosing 137.2 ml/min Est GFR ( Amer) 133.3 ml/min Est GFR (Non-Af Amer) 115.0 ml/min BUN/Creatinine Ratio 8.2 L (10-20) Glucose 100 H (70-99(Fasting)) mg/dl Calcium 8.0 L (8.6-10.3) mg/dl Total Bilirubin 5.4 H (0.2-1.0) mg/dl Direct Bilirubin 3.1 H (0-0.2) mg/dl AST 70 H (13-39) U/L ALT 227 H (7-52) U/L Alkaline Phosphatase 202 H (34-104) U/L Troponin I High Sens (0-14) pg/ml Total Protein 5.5 L D (6.0-8.3) gm/dl Albumin 3.4 (3.4-5.0) gm/dl Globulin 2.1 L (2.5-4.0) gm/dl Albumin/Globulin Ratio 1.6 (0.9-2) Triglycerides (0-150) mg/dl Amylase 189 H (25-115) U/L Lipase 869 H (11-82) U/L Urine Color Dark Yellow Urine Appearance Clear (Clear) Urine pH 5.5 (4.5-7.5) Ur Specific [place] 1.014 (1.000-1.030) Urine Protein Negative (Negative) Urine Glucose (UA) Negative (Negative) Urine Ketones Negative (Negative) Urine Blood 3+ H (Negative) Urine Nitrite Positive A (Negative) Urine Bilirubin 2+ H (Negative) Urine Urobilinogen Negative (Negative) Ur Leukocyte Esterase Negative (Negative) Urine WBC (Auto) 0 (0-5) /hpf Urine RBC (Auto) 5-10 H (0-4) /hpf U Hyaline Cast (Auto) 1-5 (0-5) /lpf U Epithel Cells (Auto) 10-20 H (0-5) /lpf Urine Bacteria (Auto) Negative (Negative) Acetaminophen < 3 L (10-30) ug/ml Lyme Disease IgG Ab (Negative) Lyme Disease IgM Ab (Negative) EBV Capsid Ag IgG Ab EBV Capsid Ag IgM Ab EBV EA Restrict+Diffuse EBV Nuclear Antigen Ab EBV Antibody Interp Monoscreen (Negative) 03/25/23 Range/Units 18:02 WBC 13.29 H (4.8-10.8) K/ul RBC 4.70 (4.20-5.40) M/uL Hgb 14.5 (12.0-16.0) g/dl Hct 41.3 (37.0-47.0) % MCV 87.9 (80.0-100.0) fL MCH 30.9 (25.0-34.0) pg MCHC 35.1 (32.0-36.0) g/dL RDW Std Deviation 40.0 (36.4-46.3) fL RDW Coeff of Leandro 12.5 (11.5-14.5) % Plt Count 284 (130-400) K/uL MPV 11.1 (9.4-12.4) fL Immature Gran % (Auto) 0.5 % Neut % (Auto) 79.4 % Lymph % (Auto) 14.4 % Gila % (Auto) 4.0 % Eos % (Auto) 1.2 % Baso % (Auto) 0.5 % Neut # (Auto) 10.55 H (1.40-6.50) K/uL Lymph # (Auto) 1.92 (1.20-3.40) K/uL Gila # (Auto) 0.53 (0.11-0.59) K/uL Eos # (Auto) 0.16 (0.00-0.50) K/uL Baso # (Auto) 0.07 (0.00-0.20) K/uL Immature Gran # (Auto) 0.06 (0.01-0.20) K/uL PT 10.6 (9.0-12.0) Seconds INR 1.0 (0.9-1.1) Sodium 139 (136-145) mmol/L Potassium 3.8 (3.5-5.1) mmol/L Chloride 109 H (98-107) mmol/L Carbon Dioxide 22 (21-32) mmol/L Anion Gap 8 (3-11) BUN 8 (6-23) mg/dl Creatinine 0.79 (0.6-1.2) mg/dl Est Cr Clr Drug Dosing 106.0 ml/min Est GFR ( Amer) 110.1 ml/min Est GFR (Non-Af Amer) 95.0 ml/min BUN/Creatinine Ratio 10.1 (10-20) Glucose 115 H (70-99(Fasting)) mg/dl Calcium 8.6 (8.6-10.3) mg/dl Total Bilirubin 6.3 H (0.2-1.0) mg/dl Direct Bilirubin (0-0.2) mg/dl AST 117 H (13-39) U/L ALT 330 H (7-52) U/L Alkaline Phosphatase 233 H (34-104) U/L Troponin I High Sens 4.4 (0-14) pg/ml Total Protein 6.9 (6.0-8.3) gm/dl Albumin 4.1 (3.4-5.0) gm/dl Globulin 2.8 (2.5-4.0) gm/dl Albumin/Globulin Ratio 1.5 (0.9-2) Triglycerides 117 (0-150) mg/dl Amylase (25-115) U/L Lipase 13 (11-82) U/L Urine Color Urine Appearance (Clear) Urine pH (4.5-7.5) Ur Specific [place] (1.000-1.030) Urine Protein (Negative) Urine Glucose (UA) (Negative) Urine Ketones (Negative) Urine Blood (Negative) Urine Nitrite (Negative) Urine Bilirubin (Negative) Urine Urobilinogen (Negative) Ur Leukocyte Esterase (Negative) Urine WBC (Auto) (0-5) /hpf Urine RBC (Auto) (0-4) /hpf U Hyaline Cast (Auto) (0-5) /lpf U Epithel Cells (Auto) (0-5) /lpf Urine Bacteria (Auto) (Negative) Acetaminophen (10-30) ug/ml Lyme Disease IgG Ab Negative (Negative) Lyme Disease IgM Ab Negative (Negative) EBV Capsid Ag IgG Ab Pending EBV Capsid Ag IgM Ab Pending EBV EA Restrict+Diffuse Pending EBV Nuclear Antigen Ab Pending EBV Antibody Interp Pending Monoscreen Negative (Negative) PG Care Time/CCT Total # of Minutes Spent Total Time Spent with Patient: Total time spent is greater than 50% in coordination of care (as documented) at patient's floor/unit and/or counseling patient: Coding Level of Care Code 93938 SUB INP/OBS CARE 3/50MIN Diagnoses Pancreatitis K85.90 Right upper quadrant abdominal pain R10.11 Acute epigastric pain R10.13 Abnormal LFTs R79.89
[2023-03-26] MEDS ORDERED: HYDROmorphone INJ 0.5 MG/0.5 ML SYR IV PRN (10:07)
[2023-03-26] MEDS ORDERED: HYDROmorphone INJ 1 MG/ML SYRINGE IV STA (10:13)
--- NOTE | 2023-03-26 11:09 | Gastrointestinal Consultation ---
Date of Consultation March 26, 2023 Assessment & Plan (1) Pancreatitis: Likely gallstone pancreatitis though no evidence of stones or bile duct abnormalities on imaging. Continue LR at 200/hr. (2) Status post cholecystectomy: (3) Elevated LFTs: (4) Biliary colic: Plan Symptoms are suggestive of a stone in the CBD, or recent passage of that. - Will watch for serology results to r/o infectious etiology. - Keep NPO. - Plan for EUS today by Dr. Del Castillo. EUS, possible liver bx, possible ERCP all explained to the pt including risks of bleeding, perforation, infection, worsened pancreatitis. Further recommendations to follow. Supervising Physician Co-Signing Physician Notes I saw and evaluated the patient. She presents several months after having cholecystectomy at our institution. She notes she has had intermittent right- sided abdominal discomfort, she was seen late last week and thought to have evidence of a drug reaction given elevation of her serum associated enzymes. Of note she had worsening discomfort yesterday presented to the emergency room. Her imaging is inconclusive however the history is suggestive of a retained common bile duct stone. The patient's presentation is most consistent with a retained common bile duct stone status postcholecystectomy. We will proceed with upper endoscopy and endoscopic ultrasound for further evaluation today. Pending these results we will then proceed with ERCP or perhaps liver biopsy if the endoscopic ultrasound is negative for biliary process. We discussed the risks of the procedure to include bleeding infection perforation pain pancreatitis failed biliary cannulation and need for follow-up studies. Plan ERCP if EUS positive for choledocholithiasis EUS, EGD History of Present Illness Reason for Consultation: Pancreatitis/ Abdominal pain Requesting Physician: Dr. 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 [facility] was asked to provide care for this patient due to biliary issues. Other than having undergone cholecystectomy in June of this year, for similar pain, Ms. Watkins has an unremarkable PMH. She was doing well after that surgery until last Fri when she began to notice nausea. The nausea persisted and she began w this pain last Friday. Since then, pain has waxed/waned, though she "hasn't eaten much," so unsure if post prandial, she does say it is sometimes severe and sometimes has complete relief of the pain. She has yellow skin, dark urine. There was a UA w blood a few days ago, but she is also menstruating and denies any suprapubic pain or pain on urination. She has not had fevers or vomiting. She had been admitted for this pain 03/23 to , had relief and was DC'ed yesterday but severe pain returned within 2 hrs and she returned to the ED last night. CT angiogram of chest, abd/pelvis suggests acute, uncomplicated pancreatitis and fluid in the gallbladder fossa. Of note, bile ducts appear normal on these CTA's and on the MRCP yesterday. LFTs are significantly elevated though slightly improved today compared to yesterday. Today: T Bili 5.4, D Bili 3.1 AST 70, ALT 277, Alk Phos 202. Lipase is elevated at 869. She is seen, examined while resting in bed. She is awake, alert, oriented, provides her hx and appears uncomfortable. She did have leukocytosis yesterday but hasn't had fevers. She has been NPO since yesterday. She does not take any supplements, drinks 1-2 servings of alcohol less than once a month and no regular prescription drugs, rare NSAID and tylenol use. She does smoke cigarettes. Allergies Allergy/AdvReac Type Severity Reaction Status Date / Time No Known Allergies Allergy Verified 03/25/23 20:49 Home Medications Medication Instructions Recorded Confirmed Type ibuprofen 200 mg tablet (Advil) 600 mg PO DIRECTED PRN 01/29/19 03/25/23 History FEVER/PAIN Patient History Medical History Right upper quadrant abdominal pain Acute calculous cholecystitis Acute cholecystitis due to biliary calculus Encounter for pre-operative examination No pertinent past medical history Surgical History No significant past surgical history Social History Smoking Status: Never smoker Tobacco Type: Cigarettes Second Hand Exposure: No; Do You Dip or Chew Tobacco: No; Hx Alcohol Use: No Hx Substance Use: No Preferred Language: Grenadian Communication Ability: Effective Clinical Audiologist Required: No Beliefs That Will Affect Care: None Current Living Situation: Spouse and Family Other Information That Helps Us Care for You: No Feels Safe at Home: Yes Safety Concerns: Feels Safe At This Time Assistive Devices: None Review of Systems Review of Systems: ROS: Gen: Denies weakness, fevers, weight loss Eyes: No eye redness, or pain, no recent vision changes Resp: No SOB, no cough Cardio: No palpitations/irregular beats, no chest pain GI: As per HPI, otherwise (-) : Denies pain on urination Skin: No jaundice, itching or new rashes Results & Data Vital Signs (Past 12 Hours) Vital Signs Temp Pulse Resp BP Pulse Ox O2 Del Method 03/26/23 08:28 36.6 C 72 18 122/74 96 Room Air Laboratory Results WBC 6.42, Hb 12.7, Hct 37.5, Plts 255, Na 140, K 3.7, Cl 110, CO2 24, BUN 5, Cr 0.6, glucose 100. T Bili 5.4, D BIli 3.1, AST 70, ALT 277, Alk Phos 202. Lipase 869. Diagnostic Findings 03/25/23: CT andgiogram of Abd/pelvis: pancreas Fat stranding or small amount of fluid in the gallbladder fossa and along the lena hepatis and pancreatic head region is nonspecific and new compared to prior exams. Question postoperative edema or infectious/inflammatory process versus acute pancreatitis. 03/25/23: CTA chest: 1. No pulmonary embolus identified. 2. No aortic aneurysm or dissection. 3. No acute pulmonary parenchymal abnormality identified. MRCP 03/23: fluid in the gallbladder fossa, otherwise normal post cholecystectomy US 03/23/23: also post estela, normal bile ducts.
[2023-03-26] MEDS ORDERED: PROMETHAZINE HCL 6.25 MG in SODIUM CHLORIDE 0.9% 50 ML IV ONE (11:15)
--- NOTE | 2023-03-26 11:21 | Electrocardiogram Report ---
Test Reason : Blood Pressure : / mmHG Vent. Rate : 084 BPM Atrial Rate : 084 BPM P-R Int : 118 ms QRS Dur : 072 ms QT Int : 376 ms P-R-T Axes : 093 063 038 degrees QTc Int : 444 ms Normal sinus rhythm Normal ECG When compared with ECG of 23-MAR-2023 14:49, No significant change was found Confirmed by Alex Tan ([id number]) on 03/26/2023 11:20:35 AM Referred By: REFERRED SELF Confirmed By:Gorge Tan
[2023-03-26] MEDS ORDERED: MIDAZOLAM HCL 1 MG/ML 2ML VIAL ONE ×2 (11:39→11:40)
[2023-03-26] MEDS ORDERED: LIDOCAINE 2% 2 ML VIAL/AMP(20MG/ML) INFIL ONE (11:47)
[2023-03-26] MEDS ORDERED: ONDANSETRON INJ 2 MG/ML 2 ML VIAL ONE (11:47)
[2023-03-26] MEDS ORDERED: PROPOFOL IV EMULSION 10 MG/ML 20 ML VIAL IV ONE (11:47)
[2023-03-26] MEDS ORDERED: KETAMINE HCL 10MG/ML SYR ONE (11:50)
[2023-03-26] MEDS ORDERED: fentaNYL citrate PF 100 MCG/2 ML VIAL IV PRN (11:53)
[2023-03-26] MEDS ORDERED: ATROPINE SULFATE 0.1 MG/ML 10ML SYR IV PRN (11:53)
[2023-03-26] MEDS ORDERED: ONDANSETRON INJ 2 MG/ML 2 ML VIAL IV PRN (11:53)
[2023-03-26] MEDS ORDERED: ePHEDrine sulfate 50 MG/ML AMP IV PRN (11:53)
--- NOTE | 2023-03-26 11:53 | Anesthesiology Consultation ---
Date of Service March 26, 2023 Assessment & Plan Chart Review Chart Review: Acceptable Risk for Surgery and Patient NOT seen in Pre Admission Testing Consults Requested none History Surgery Operation Date: 03/26/23 10:30 Proposed Procedures p Endoscopic Retrograde Cholangiopancreatogram - Riki Del Castillo DO s Endoscopic Ultrasonography Upper - Riki Del Castillo DO Height/Weight Height: 5 ft 7 in Weight: 81.4 kg Allergies Allergy/AdvReac Type Severity Reaction Status Date / Time No Known Allergies Allergy Verified 03/25/23 20:49 Medications Home Medications Medication Instructions Recorded Confirmed Last Taken ibuprofen 200 mg tablet (Advil) 600 mg PO DIRECTED PRN 01/29/19 03/25/23 2 Days Ago FEVER/PAIN ~03/22/23 Active Medications Generic Name Dose Route Start Last Admin Trade Name Freq PRN Reason Stop Dose Admin Enoxaparin Sodium 40 mg 03/26/23 06:00 03/26/23 07:33 Enoxaparin Inj 40 Mg/0.4 Ml Syr SQ 04/25/23 05:59 Not Given Q24H CONNOR Lactated Ringer's 1,000 mls @ 200 mls/hr 03/25/23 22:00 03/26/23 09:18 Lr IV 04/24/23 21:59 200 mls/hr .Q5H CONNOR Administration Ondansetron HCl 4 mg 03/25/23 22:46 03/26/23 06:14 Ondansetron Inj 2 Mg/Ml 2 Ml Vial IV 04/24/23 22:45 4 mg Q6H PRN Administration Nausea Past Medical History Medical History Right upper quadrant abdominal pain Acute calculous cholecystitis Acute cholecystitis due to biliary calculus Encounter for pre-operative examination No pertinent past medical history Past Surgical History Surgical History No significant past surgical history Social History Smoking Status: Never smoker Do You Dip or Chew Tobacco: No Hx Alcohol Use: No Hx Substance Use: No substance use type: does not use Physical Exam Vital Signs Last Vital Signs Temp 97.9 F 03/26/23 08:28 Pulse 72 03/26/23 08:28 Resp 18 03/26/23 08:28 BP 122/74 03/26/23 08:28 Pulse Ox 96 03/26/23 08:28 O2 Del Method Room Air 03/26/23 08:28 Testing Laboratory Results 03/26/23 06:38 03/26/23 06:38 PT 10.6 Seconds (9.0-12.0) 03/25/23 18:02 INR 1.0 (0.9-1.1) 03/25/23 18:02 Urine Color Dark Yellow 03/25/23 Unknown Urine Appearance Clear (Clear) 03/25/23 Unknown Urine pH 5.5 (4.5-7.5) 03/25/23 Unknown Ur Specific [place] 1.014 (1.000-1.030) 03/25/23 Unknown Urine Protein Negative (Negative) 03/25/23 Unknown Urine Glucose (UA) Negative (Negative) 03/25/23 Unknown Urine Ketones Negative (Negative) 03/25/23 Unknown Urine Nitrite Positive (Negative) A 03/25/23 Unknown Ur Leukocyte Esterase Negative (Negative) 03/25/23 Unknown Urine WBC (Auto) 0 /hpf (0-5) 03/25/23 Unknown Urine RBC (Auto) 5-10 /hpf (0-4) H 03/25/23 Unknown U Hyaline Cast (Auto) 1-5 /lpf (0-5) 03/25/23 Unknown U Epithel Cells (Auto) 10-20 /lpf (0-5) H 03/25/23 Unknown Urine Bacteria (Auto) Negative (Negative) 03/25/23 Unknown
[2023-03-26] MEDS ORDERED: LACTATED RINGER'S 1,000 ML IV SCH (12:15)
[2023-03-26] MEDS ORDERED: PANTOprazole 40 MG in SYRINGE 0 ML IV SCH (12:30)
[2023-03-26] MEDS ORDERED: INDOMETHACIN 50 MG SUPP PR ONE (13:05)
--- NOTE | 2023-03-26 13:24 | GI REPORT ---
Patient Name: Larry Watkins Procedure Date: 03/26/2023 1:13 PM Date of : 1985 Admit Type: Inpatient Age: 37 Gender: Female Attending MD: Riki Del Castillo DO, Procedure: Upper GI endoscopy Providers: Riki Del Castillo DO Referring MD: Preston Carlton Indications: Epigastric abdominal pain Medicines: General Anesthesia Complications: No immediate complications. Estimated blood loss: Minimal. Estimated Blood Loss: Estimated blood loss was minimal. Procedure: Pre-Anesthesia Assessment: - Prior to the procedure, a History and Physical was performed, and patient medications, allergies and sensitivities were reviewed. The patient's tolerance of previous anesthesia was reviewed. - The risks and benefits of the procedure and the sedation options and risks were discussed with the patient. All questions were answered and informed consent was obtained. - Patient identification and proposed procedure were verified prior to the procedure by the physician, the nurse and the employment coordinator. The procedure was verified in the procedure room. - Pre-procedure physical examination revealed no contraindications to sedation. - ASA Grade Assessment: II - A patient with mild systemic disease. - After reviewing the risks and benefits, the patient was deemed in satisfactory condition to undergo the procedure. - The anesthesia plan was to use general anesthesia. - Immediately prior to administration of medications, the patient was re-assessed for adequacy to receive sedatives. - The heart rate, respiratory rate, oxygen saturations, blood pressure, adequacy of pulmonary ventilation, and response to care were monitored throughout the procedure. - The physical status of the patient was re-assessed after the procedure. After obtaining informed consent, the endoscope was passed under direct vision. Throughout the procedure, the patient's blood pressure, pulse, and oxygen saturations were monitored continuously. The Endoscope was introduced through the mouth, and advanced to the third part of duodenum. The upper GI endoscopy was accomplished without difficulty. The patient tolerated the procedure well. Findings: The examined esophagus was normal. The Z-line was regular and was found 36 cm from the incisors. A small amount of food (residue) was found in the gastric antrum. The examined duodenum was normal. Impression: - Normal esophagus. - Z-line regular, 36 cm from the incisors. - A small amount of food (residue) in the stomach. - Normal examined duodenum. - No specimens collected. Recommendation: - Perform an upper endoscopic ultrasound (UEUS) today. Riki Del Castillo D.O. Riki Del Castillo, 03/26/2023 1:24:01 PM This report has been signed electronically. Note Initiated On: 03/26/2023 1:13 PM Number of Addenda: 0 I attest to the content of the Intraoperative Record and orders documented therein, exceptions below {[id number]}
--- NOTE | 2023-03-26 13:54 | GI REPORT ---
Patient Name: Larry Watkins Procedure Date: 03/26/2023 1:24 PM Date of : 1985 Admit Type: Inpatient Age: 37 Gender: Female Attending MD: Riki Del Castillo DO, Procedure: Upper EUS Providers: Riki Del Castillo DO Referring MD: Preston Carlton Indications: Elevated liver enzymes, Suspected choledocholithiasis Medicines: General Anesthesia Complications: No immediate complications. Estimated blood loss: Minimal. Estimated Blood Loss: Estimated blood loss was minimal. Procedure: Pre-Anesthesia Assessment: - Prior to the procedure, a History and Physical was performed, and patient medications, allergies and sensitivities were reviewed. The patient's tolerance of previous anesthesia was reviewed. - The risks and benefits of the procedure and the sedation options and risks were discussed with the patient. All questions were answered and informed consent was obtained. - Patient identification and proposed procedure were verified prior to the procedure by the physician, the nurse and the sugar sampler. The procedure was verified in the procedure room. - Pre-procedure physical examination revealed no contraindications to sedation. - ASA Grade Assessment: II - A patient with mild systemic disease. - After reviewing the risks and benefits, the patient was deemed in satisfactory condition to undergo the procedure. - The anesthesia plan was to use general anesthesia. - Immediately prior to administration of medications, the patient was re-assessed for adequacy to receive sedatives. - The heart rate, respiratory rate, oxygen saturations, blood pressure, adequacy of pulmonary ventilation, and response to care were monitored throughout the procedure. - The physical status of the patient was re-assessed after the procedure. After obtaining informed consent, the endoscope was passed under direct vision. Throughout the procedure, the patient's blood pressure, pulse, and oxygen saturations were monitored continuously. The Scope was introduced through the mouth, and advanced to the second part of duodenum. The upper EUS was accomplished without difficulty. The patient tolerated the procedure well. Findings: ENDOSONOGRAPHIC FINDING: : Evidence of a previous cholecystectomy was identified endosonographically, a small gallbladder remanent was noted. Two stones were visualized endosonographically in the lower third of the main bile duct. The stones were round. They were hyperechoic. The CBD was non-dilated, measuing 4 to 6 mm. There was no sign of significant endosonographic abnormality in the visualized portion of the liver. Homogeneous parenchyma and no focal pathology were identified. There was no sign of significant endosonographic abnormality in the entire pancreas. The pancreatic duct measured up to 2 mm in diameter. No masses, no cysts, the pancreatic duct was thin in caliber. No lymphadenopathy seen. There was no sign of significant endosonographic abnormality in the left adrenal gland. No adrenal gland enlargement was identified. Impression: - Evidence of a cholecystectomy. - Two stones were visualized endosonographically in the lower third of the main bile duct. - There was no evidence of significant pathology in the visualized portion of the liver. - There was no sign of significant pathology in the entire pancreas. - Endosonographic images of the left adrenal gland were unremarkable. - No specimens collected. Recommendation: - Perform an ERCP today. Riki Del Castillo D.O. Riki Del Castillo, 03/26/2023 1:54:05 PM This report has been signed electronically. Note Initiated On: 03/26/2023 1:24 PM Number of Addenda: 0 I attest to the content of the Intraoperative Record and orders documented therein, exceptions below {[id number]}
--- NOTE | 2023-03-26 13:58 | GI REPORT ---
Patient Name: Larry Watkins Procedure Date: 03/26/2023 1:33 PM Date of : 1985 Admit Type: Inpatient Age: 37 Gender: Female Attending MD: Riki Del Castillo DO, Procedure: ERCP Providers: Riki Del Castillo DO Referring MD: Preston Carlton Indications: For therapy of bile duct stone(s), Gallstone associated acute pancreatitis Medicines: General Anesthesia Complications: No immediate complications. Estimated blood loss: Minimal. Estimated Blood Loss: Estimated blood loss was minimal. Procedure: Pre-Anesthesia Assessment: - Prior to the procedure, a History and Physical was performed, and patient medications, allergies and sensitivities were reviewed. The patient's tolerance of previous anesthesia was reviewed. - The risks and benefits of the procedure and the sedation options and risks were discussed with the patient. All questions were answered and informed consent was obtained. - Patient identification and proposed procedure were verified prior to the procedure by the physician, the nurse and the grocery sacker. The procedure was verified in the procedure room. - Pre-procedure physical examination revealed no contraindications to sedation. - ASA Grade Assessment: II - A patient with mild systemic disease. - After reviewing the risks and benefits, the patient was deemed in satisfactory condition to undergo the procedure. - The anesthesia plan was to use general anesthesia. - Immediately prior to administration of medications, the patient was re-assessed for adequacy to receive sedatives. - The heart rate, respiratory rate, oxygen saturations, blood pressure, adequacy of pulmonary ventilation, and response to care were monitored throughout the procedure. - The physical status of the patient was re-assessed after the procedure. After obtaining informed consent, the scope was passed under direct vision. Throughout the procedure, the patient's blood pressure, pulse, and oxygen saturations were monitored continuously. The Duodenoscope was introduced through the mouth, and advanced to the duodenum and used to inject contrast into the bile duct. The ERCP was accomplished without difficulty. The patient tolerated the procedure well. Findings: A extruder operator film of the abdomen was obtained. Surgical clips, consistent with a previous cholecystectomy, were seen in the area of the right upper quadrant of the abdomen. The esophagus was successfully intubated under direct vision without detailed examination of the pharynx, larynx, and associated structures, and upper GI tract. The upper GI tract was grossly normal. The major papilla was congested. The bile duct was deeply cannulated with the short-nosed traction sphincterotome and guidewire. Contrast was injected. I personally interpreted the bile duct images. Contrast extended to the hepatic ducts. A cholecystectomy had been performed. The lower third of the main bile duct contained filling defect(s) thought to be a stone. Biliary sphincterotomy was made with a monofilament Fusion OMNI sphincterotome using ERBE electrocautery. The sphincterotomy oozed blood. To discover objects, the biliary tree was swept with a 12 mm balloon starting at the bifurcation. Two stones were removed. No stones remained. Pus was swept from the duct consistent with mild cholangitis, therefore one 10 Fr by 8 cm biliary stent with a single external flap and a single internal flap was placed 8 cm into the common bile duct. Bile flowed through the stent. The stent was in good position. The endoscope was withdrawn from the patient. Indomethacin 100 mg was given via suppository to decrease the risk of post-ERCP pancreatitis (PEP). The total fluoroscopy exposure time was 18 seconds. Impression: - The major papilla appeared congested. - The patient has had a cholecystectomy. - Choledocholithiasis and mild cholangitis was found. Complete removal was accomplished by biliary sphincterotomy and balloon extraction. - One biliary stent was placed into the common bile duct due to suspected cholangitis. - Indomethacin given to decrease risk of post-ERCP pancreatitis. Recommendation: - Avoid aspirin and nonsteroidal anti-inflammatory medicines for 1 week. - Clear liquid diet today. - Use broad spectrum antibiotics for 10 days. - Repeat ERCP in 6 weeks to remove stent. Riki Del Castillo D.O. Riki Del Castillo, 03/26/2023 1:58:07 PM This report has been signed electronically. Note Initiated On: 03/26/2023 1:33 PM Number of Addenda: 0 I attest to the content of the Intraoperative Record and orders documented therein, exceptions below {[id number]}
--- NOTE | 2023-03-26 13:59 | Post Operative Brief Note ---
Immediate Post Op Note v1 Date of Surgery March 26, 2023 Pre & Post Diagnosis Operation Date: 03/26/23 10:30 Pre-Op Diagnosis: ABDOMINAL PAIN Post-Op Diagnosis: common bile duct stones/mild choangitis I identified the patient and participated in the time-out.: Yes Procedure Operation Date: 03/26/23 10:30 Actual Procedures p Esophagogastroduodenoscopy - Riki Del Castillo DO s Endoscopic Ultrasonography Upper - Riki Del Castillo DO p Endoscopic Retrograde Cholangiopancreato - Riki Del Castillo DO Surgeon Riki Del Castillo, Reconciliation Machine Operator none Estimated Blood Loss 0 Findings Consistent with Post-Op Diagnosis
--- NOTE | 2023-03-26 14:01 | Communication Note ---
Date of Service: March 26, 2023 The patient underwent upper endoscopy, endoscopic ultrasound and ultimately ERCP today for suspected gallstone pancreatitis. She was found to have evidence of stones within the common bile duct in addition to pus consistent with early cholangitis. The biliary sphincterotomy was performed, gallstone was removed and a biliary stent was placed due to the mild cholangitis. Recommendations Continue IV hydration given underlying pancreatitis if this afternoon patient may have clear liquids Antibiotic coverage for total of 10 days Avoid use of nonsteroidals and anticoagulation for 5 days please Repeat ERCP for bile duct stent removal in 6 to 8 weeks Please call with any additional questions or concerns further recommendations per the inpatient GI service.
--- NOTE | 2023-03-26 14:34 | Anesthesiology Progress Note ---
Date of Service March 26, 2023 Anesthesia Post Procedure Vital Signs Vital Signs: Temp Pulse Pulse Resp BP BP Pulse Ox 03/26/23 14:20 71 16 135/80 96 03/26/23 14:10 81 16 130/67 97 03/26/23 14:00 79 16 122/65 99 03/26/23 13:59 98.4 F 78 16 118/65 99 03/26/23 11:52 97.9 F 78 16 133/67 97 03/26/23 08:28 97.9 F 72 18 122/74 96 03/25/23 22:28 03/25/23 22:28 98.6 F 86 18 137/78 96 03/25/23 22:28 98.6 F 86 18 137/78 98 03/25/23 22:21 03/25/23 21:02 81 15 136/80 97 03/25/23 20:47 83 03/25/23 20:29 78 16 97 03/25/23 20:28 75 16 99/53 L 97 03/25/23 17:32 99.0 F 92 H 18 144/85 H 99 O2 Del Method O2 Flow Rate 03/26/23 14:20 Room Air 03/26/23 14:10 Room Air 03/26/23 14:00 Oxymask 4 03/26/23 13:59 Oxymask 4 03/26/23 11:52 Room Air 03/26/23 08:28 Room Air 03/25/23 22:28 Room Air 03/25/23 22:28 Room Air 03/25/23 22:28 Room Air 03/25/23 22:21 Room Air 03/25/23 21:02 Room Air 03/25/23 20:47 03/25/23 20:29 Room Air 03/25/23 20:28 Room Air 03/25/23 17:32 Room Air Pain Intensity Abdomen: Pain Intensity: 2 Transfer of Care Handoff Completed per policy Notes Mental Status: alert / awake / arousable and participated in evaluation Patient Amnestic to Procedure: Yes Nausea / Vomiting: adequately controlled Pain: adequately controlled Airway Patency, RR, SpO2: stable & adequate BP & HR: stable & adequate Hydration State: stable & adequate Anesthetic Complications: no major complications apparent and Pt Satisfied with anesthetic care
[2023-03-26] MEDS ORDERED: PIPERACILLIN/TAZOBACTAM 4.5 GM in DEXTROSE 5% MINI-B 100 ML IV ONE (15:00)
--- NOTE | 2023-03-26 15:10 | Communication Note ---
Date of Service: March 26, 2023 Stopped back to see patient after MARTÍNEZ/ERCP w/ Dr Del Castillo Pain medications effective this morning prior to procedure, Phenergan added (and discussed cn continue if more effective) Patient reports feeling better/still a little out of it from anesthesia but discussed findings/stent/antibiotics. ERCP w/ choledocholithiasis and mild cholangitis found. * Complete removal with biliary sphincterotomy and balloon extraction. Biliary stent placed in CBD due to suspected cholangitis. Indomethacin given. Broad spectrum abx x 10 days. Repeat ERCP in 6 weeks for stent removal
--- NOTE | 2023-03-26 15:21 | Fluoroscopy Report ---
INTRAOPERATIVE RADIOGRAPHS CLINICAL HISTORY: ERCP Fluoro time: 19 seconds Ka,r: 4.31 mGy FINDINGS: 3 spot fluoroscopic views of the right upper quadrant from an ERCP procedure are correlated with abdominal CT dated 03/25/2023 and MRCP dated 03/24/2023. Cholecystectomy clips are noted. Contr ast injected into the common bile duct shows no significant biliary ductal dilatation. A common bile duct stent is placed.. IMPRESSION: Intraoperative ERCP images as above. See operative report for detailed findings. Electronically signed by: Nathan Jay M.D. 03/26/2023 3:20 PM
[2023-03-26] MEDS: PIPERACILLIN/TAZOBACTAM 4.5 GM in DEXTROSE 5% MINI-B 100 ML IV SCH (20:33)
[2023-03-27] MEDS: LACTATED RINGER'S 1,000 ML IV SCH ×2 (02:52→09:51)
[2023-03-27] MEDS: PIPERACILLIN/TAZOBACTAM 4.5 GM in DEXTROSE 5% MINI-B 100 ML IV SCH (04:05)
--- NOTE | 2023-03-27 08:42 | Hospitalist Progress Note ---
Date of Service March 27, 2023 Assessment & Plan (1) Cholangitis: Plan: Presented with abdominal pain w/ history of cholecystectomy earlier this year in June with Dr Briceno. Dc'd on 03/25, TB elevated at that time. On admission, LFTs elevated: TB 6.3, AST 117, AST 330, ALP 233. CTAP w/ Fat stranding or small amount of fluid in the gallbladder fossa and along the lena hepatis and pancreatic head region is nonspecific and new compared to prior exams. Question postoperative edema or infectious/inflammatory process versus acute pancreatitis. GI consulted for intervention for possible passed stone vs other/gallstone pancreatitis s/p EUS/ERCP w/ choledocholithiasis and possible early cholangitis found w/ Dr Del Castillo on 03/26 * Complete removal with biliary sphincterotomy and balloon extraction. Biliary stent placed in CBD due to suspected cholangitis. Indomethacin given. Continuing broad spectrum abx x 10 days (on Zosyn IV at present) Avoid use of non-steroidals and anticoagulation for 5 days please Will need repeat ERCP in 6 weeks for stent removal Continues on IVF/supportive care/pain control/antiemetics Clear liquid diet ordered last evening Labs from AM pending (2) Choledocholithiasis: Plan: as above, s/p extraction/sphincterotomy and stent placement for above needs GI f/u 6 weeks for stent removal (3) Pancreatitis: Plan: As above, presented w/ abd pain/n/v, elevated lipase to 869 w/ elevated LFTs. See above EBV testing -- ?recent infection Treatment as above (4) Right upper quadrant abdominal pain: Plan: ?passed stone vs other GI consulted, pain control, EUS/ERCP as above (5) Acute epigastric pain: (6) Abnormal LFTs: Plan: improved on repeat, ?passed stone. Recent negative MRCP. ?sphincter of oddi dysfunction. EUS for further eval as above monitor CMV/EBV testing GI on consult as above (7) Elevated LFTs: Plan Lovenox SQ for DVT proph NPO for EUS this afternoon w/ [facility] Admission and Anticipated Discharge Date Admission Date: March 25, 2023 Results & Data Results & Data Vital Signs (Past 12 Hours) Vital Signs Temp Pulse Resp BP Pulse Ox O2 Del Method 03/27/23 04:17 36.7 C 68 15 119/75 93 Room Air 03/27/23 00:28 36.6 C 69 15 124/84 96 Room Air 03/26/23 21:40 Room Air Laboratory Results 03/26/23 06:38 03/26/23 06:38 PG Care Time/CCT Total # of Minutes Spent Total Time Spent with Patient: Total time spent is greater than 50% in coordination of care (as documented) at patient's floor/unit and/or counseling patient: Coding Diagnoses Cholangitis K83.09 Choledocholithiasis K80.50 Pancreatitis K85.90 Right upper quadrant abdominal pain R10.11 Acute epigastric pain R10.13 Abnormal LFTs R79.89 Elevated LFTs R79.89
[2023-03-27 09:03] LABS: Basophils # (auto) 0.04 K/uL (0.00-0.20); Basophils % (auto) 0.6 %; Eosinophils # (auto) 0.18 K/uL (0.00-0.50); Eosinophils % (auto) 2.5 %; Hematocrit (blood only) 38.1 % (37.0-47.0); Hemoglobin 12.9 g/dl (12.0-16.0); Immature Granulocytes # (auto) 0.04 K/uL (0.01-0.20); Immature Granulocytes % (auto) 0.6 %; Lymphocytes # (auto) 1.59 K/uL (1.20-3.40); Lymphocytes % (auto) 22.1 %; Mean Corpuscular Hemoglobin 29.8 pg (25.0-34.0); Mean Corpuscular Hgb Conc 33.9 g/dL (32.0-36.0); Mean Platelet Volume 10.5 fL (9.4-12.4); Monocytes # (auto) 0.35 K/uL (0.11-0.59); Monocytes % (auto) 4.9 %; Neutrophils % (auto) 69.3 %; Platelet Count 263 K/uL (130-400); RDW Coefficient of Variation 12.3 % (11.5-14.5); Red Blood Count 4.33 M/uL (4.20-5.40)
[2023-03-27 09:18] LABS: Albumin Level 3.5 gm/dl (3.4-5.0); BUN Creatinine Ratio 6.5 (10-20); Bilirubin Direct 3.5 mg/dl (0-0.2); Bilirubin,Total 5.9 mg/dl (0.2-1.0); Calcium 8.3 mg/dl (8.6-10.3); Est GFR (African American) 132.6 ml/min; Est GFR (Non-African American) 114.4 ml/min; Magnesium 1.8 mg/dl (1.7-2.4); Potassium 3.6 mmol/L (3.5-5.1); Total Protein 5.8 gm/dl (6.0-8.3)
--- NOTE | 2023-03-27 09:57 | Discharge Summary ---
Date of Service March 27, 2023 Admission HPI Per Admitting Provider 37 y/o female with no pertinent PMH here due to worsening abdominal pain/epigastric pain that radiate to her back 10/10 on pain scale. She had a cholecystectomy on June 2022. Patient was discharged today after evaluation for similar symptoms. Gastroenterology was on case, diagnosed her with acute cholestatic liver injury (unknown etiology medication vs viral). Discharge with oxycodone that did not improved her pain. MRCP negative for biliary obstruction. She denied any new medication. Denied alcohol consumption. Denied fever, vomiting, nausea, SOB, any urinary symptoms, chest pain, palpitations, diarrhea or any other symptoms In the ER she received Morphine and a dose of Cefepime. Abdomen/Pelvis CT: Fat stranding or small amount of fluid in the gallbladder fossa and along the lena hepatis and pancreatic head region is nonspecific. Mild leukocytosis, Hgb stable at 14. Platelet and INR were normal. Lipase normal levels. Hepatitis panel pending. CMV pending. Lyme disease Ab negative. Admission Exam Per Admitting Provider Constitutional: WD/WN, vitals as above well developed and + ill appearing Respiratory: normal respiratory effort, lungs clear to auscultation Cardiovascular: RRR, no murmur, no edema Gastrointestinal (Abdomen): Inspection/Auscultation: normal bowel sounds; abdomen not distended Percussion/Palpation: + abdomen tender (RUQ/ epigastric, radiate to her back) and abdomen soft; no guarding, abdomen not rigid and no abdominal mass Musculoskeletal: no cyanosis or clubbing, extremities motor strength 5/5 Principal Diagnosis Early Cholangitis, Choledocholithiasis, Gallstone pancreatitis Discharge Exam General: WD/WN female sitting up in bed, at bedside, appearing MUCH more comfortable, wanting to go home HEENT: head normocephalic, atraumatic, mm slightly dry, trachea midline, eyes anicteric Resp; Even/unlabored, improvement in air entry bilaterally, no w/c/r, on room air 96% CV: RRR, no significant mrg, no pitting edema/calf tenderness GI: +BS, soft, no significant tenderness/guarding/rebound : no jane MSK/Neuro: no focal deficits, no slurred speech, answering questions appropriately Skin: slight jaundiced appearance but improved Discharge Data Allergies Allergy/AdvReac Type Severity Reaction Status Date / Time No Known Allergies Allergy Verified 03/25/23 20:49 Consultations 03/25/23 20:59 ED Decision to Admit Stat 03/25/23 22:46 Consult Gastroenterology Routine Procedures Performed Operation Date: 03/26/23 10:30 Actual Procedures p Esophagogastroduodenoscopy - Riki Del Castillo, s Endoscopic Ultrasonography Upper - Riki Del Castillo, p Endoscopic Retrograde Cholangiopancreato - Riki Del Castillo, Ordered Studies Abdomen/Pelvis CTA 03/25/23 17:39 Exam(s): CTA ABDOMEN + PELVIS With Contrast IV Amt: 119 ml opti 320 EXAM: CT Angiography Abdomen and Pelvis With Intravenous Contrast CLINICAL HISTORY: Reason for exam: Chest/abd pain. TECHNIQUE: Axial computed tomographic angiography images of the abdomen and pelvis with intravenous contrast. CTDI is 64 mGy and DLP is 2192.96 mGy-cm. Automated exposure control was utilized for the study. A dose lowering technique was utilized adhering to the principles of ALARA. MIP reconstructed images were created and reviewed. CONTRAST: Patient received 119 ml opti 320 of IV contrast COMPARISON: CT abdomen/pelvis on 03/23/2023. MRCP on 03/24/2023. FINDINGS: VASCULATURE: Aorta: No acute findings. No abdominal aortic aneurysm. No dissection. Celiac trunk and mesenteric arteries: No acute findings. No occlusion or significant stenosis. Renal arteries: No acute findings. No occlusion or significant stenosis. Iliac arteries: No acute findings. No occlusion or significant stenosis. Lung bases: Mild dependent atelectasis bilaterally. ABDOMEN: Liver: Hepatomegaly. Gallbladder and bile ducts: Prior cholecystectomy. Please see below. Pancreas: Fat stranding or small amount of fluid in the gallbladder fossa and along the lena hepatis and pancreatic head region is nonspecific and new compared to prior exams. Question postoperative edema or infectious/inflammatory process versus acute pancreatitis. No ductal dilation. Spleen: Small splenule. Adrenals: Unremarkable. No mass. Kidneys and ureters: Unremarkable. No hydronephrosis. No solid mass. Stomach and bowel: Unremarkable. No obstruction. No mucosal thickening. PELVIS: Appendix: Normal appendix. Bladder: Unremarkable. No mass. Reproductive: Unremarkable as visualized. ABDOMEN and PELVIS: Intraperitoneal space: Small amount of fluid in the posterior pelvis. No free air. Bones/joints: No acute fracture. No dislocation. Soft tissues: Small fat-containing umbilical hernia. Lymph nodes: Unremarkable. No enlarged lymph nodes. IMPRESSION: Fat stranding or small amount of fluid in the gallbladder fossa and along the lena hepatis and pancreatic head region is nonspecific and new compared to prior exams. Question postoperative edema or infectious/inflammatory process versus acute pancreatitis. Electronically signed by: Ines Cabrera M.D. 03/25/23 20:32 PM Chest CTA 03/25/23 17:39 Exam(s): CTA CHEST W/WO Contrast IV Amt: 119 ml opti 320 EXAM: CT Angiography Chest Without and With Intravenous Contrast CLINICAL HISTORY: Reason for exam: C/P. TECHNIQUE: Axial computed tomographic angiography images of the chest without and with intravenous contrast. CTDI is 64 mGy and DLP is 2192.96 mGy-cm. Automated exposure control was utilized for the study. A dose lowering technique was utilized adhering to the principles of ALARA. MIP reconstructed images were created and reviewed. CONTRAST: Patient received 119 ml opti 320 of IV contrast COMPARISON: None FINDINGS: Pulmonary arteries: Unremarkable. No pulmonary embolus identified. Aorta: No acute findings. No aortic aneurysm or dissection. Lungs: Mild emphysematous changes, at the lung apices. Nonspecific 4 mm subpleural nodule at the lateral left lung base. If patient is at low risk, no further follow-up is necessary. If patient is at high risk, consider follow-up CT in 12 months. No consolidation. Pleural space: Unremarkable. No significant effusion. No pneumothorax. Heart: Unremarkable. No cardiomegaly. No significant pericardial effusion. No evidence of RV dysfunction. Bones/joints: No acute fracture. No dislocation. Soft tissues: Unremarkable. Lymph nodes: Unremarkable. No enlarged lymph nodes. IMPRESSION: 1. No pulmonary embolus identified. 2. No aortic aneurysm or dissection. 3. No acute pulmonary parenchymal abnormality identified. Electronically signed by: Ines Cabrera M.D. 03/25/23 20:18 PM Endo Retro Cholangiopancreatogram 03/26/23 13:00 INTRAOPERATIVE RADIOGRAPHS CLINICAL HISTORY: ERCP Fluoro time: 19 seconds Ka,r: 4.31 mGy FINDINGS: 3 spot fluoroscopic views of the right upper quadrant from an ERCP procedure are correlated with abdominal CT dated 03/25/2023 and MRCP dated 03/24/2023. Cholecystectomy clips are noted. Contrast injected into the common bile duct shows no significant biliary ductal dilatation. A common bile duct stent is placed.. IMPRESSION: Intraoperative ERCP images as above. See operative report for detailed findings. Electronically signed by: Nathan Jay M.D. 03/26/2023 3:20 PM Hospital Course (1) Cholangitis: Presented with abdominal pain w/ history of cholecystectomy earlier this year in June with Dr Briceno. Dc'd on 03/25, TB elevated at that time. On admission, LFTs elevated: TB 6.3, AST 117, AST 330, ALP 233. CTAP w/ Fat stranding or small amount of fluid in the gallbladder fossa and along the lena hepatis and pancreatic head region is nonspecific and new compared to prior exams. Question postoperative edema or infectious/inflammatory process versus acute pancreatitis. GI consulted for intervention for possible passed stone vs other/gallstone pancreatitis s/p EUS/ERCP w/ choledocholithiasis and possible early cholangitis found w/ Dr Del Castillo on 03/26 * Complete removal with biliary sphincterotomy and balloon extraction. Biliary stent placed in CBD due to suspected cholangitis. Indomethacin given. Continuing broad spectrum abx x 10 days (on Zosyn IV while inpatient and planning for Augmentin BID to complete course) Avoid use of non-steroidals and anticoagulation for 5 days please Will need repeat ERCP in 6 weeks for stent removal Diet advanced from clears --> low fat. To continue low fat diet at discharge. LFTs w/ TB 5.9/DB 5.3 but feeling better, now w/ stent in place. Amylase/lipase decreased on repeat. AST/ALT improved. Patient wanting to go home, discussed w/ GI and ok for discharge. Repeat labs for this upcoming week, new PCP arranged at discharge (2) Choledocholithiasis: as above, s/p extraction/sphincterotomy and stent placement for above needs GI f/u 6 weeks for stent removal. Per GI, they will arrange (3) Pancreatitis: As above, presented w/ abd pain/n/v, elevated lipase to 869 w/ elevated LFTs. See above EBV testing -- ?recent infection Treatment as above, lipase improved. low fat diet (4) Right upper quadrant abdominal pain: ?passed stone vs other GI consulted, pain control, EUS/ERCP as above NO FURTHER ABDOMINAL PAIN REPORTED (5) Acute epigastric pain: RESOLVED (6) Abnormal LFTs: improved on repeat, ?passed stone. Recent negative MRCP. ?sphincter of oddi dysfunction. EUS for further eval as above monitor CMV/EBV testing in follow up GI on consult as above Repeat LFts this upcoming week (7) Elevated LFTs: Total Time Total Time Spent Total Time Spent (In Minutes): 50 Discharge Plan Discharge Items Patient Disposition: Home - Self-Care Reason For Visit: ABDOMINAL PAIN Discharge Diagnosis: Gallstone Pancreatitis, Choledocholithiasis Goals: You have been hospitalized for an acute medical problem. During your stay at [facility], we have made an effort to correct the problem that brought you to the hospital while keeping you as comfortable as possible. Medications were used to bring your condition under control and your discharge instructions will include directions for any medications you should take after leaving the hospital. Please make sure you see your Primary Care Provider as part of your follow up plan. Activity: As commented below Non-emergency contact: Primary Care Provider and Converter Skimmer Call non-emergency contact if: you have any medication questions, your symptoms worsen, your pain is not controlled and you have a fever Follow-up/Referrals: Mercy Bañuelos PA-C [Physician Construction Site Manager] - 04/01/23 11:00 am (Hospital follow up/ establish care visit ) Riki Del Castillo DO [Physician] - (6 weeks for stent removal) PCP,AISHWARYA [Primary Care Provider] - Diet: Low Fat Diet Comment: advance as tolerated Ambulatory Orders: Hepatic Function (Liver) Panel (Routine) Timeframe: 20230331 Location: Determined by Patient Ordered By: Lea Gibbons Lipase (Routine) Timeframe: 20230331 Location: Determined by Patient Ordered By: Lea Gibbons Addtl Attending Provider Instructions: You have been hospitalized for abdominal pain and elevated liver enzymes as well as lipase concerning for pancreatitis due to a stone. Gastroenterology was consulted and you underwent endoscopy which showed stones which were removed and stent was placed. There was evidence for an infection called cholangitis and you were started on antibiotics and should complete a 10 day course at discharge. GI will arrange for repeat endoscopy for removal of the stent. Please avoid NSAIDS (ibuprofen/aleve/motrin) for the next 5 days to prevent any bleeding issues. Continue low fat diet and can advance as tolerated. You will have repeat labs on Friday and follow up with primary care in the next 7-10 days after discharge to monitor your progress. Please return to the ER with any increased pain, fever, inability to keep up with oral intake, or for any other symptoms concerning for you. It has been a pleasure being a part of the medical team providing for you while you have been in the hospital. Take care! Pending Studies at Discharge: Yes Studies:: blood cultures -- no growth to date actin IgG antibody CMV Stand-Alone Forms: My [facility], Work/School Release, Smoking Cessation Medications and DC Order Prescriptions: New amoxicillin-pot clavulanate 875-125 mg tablet 1 tab PO Q12H 9 Days Qty: 18 0RF Discontinued ibuprofen [Advil] 200 mg Tablet 600 mg PO DIRECTED PRN (Reason: FEVER/PAIN) Discharge Orders: Discharge Order (Routine); Ordered 03/27/23 Ordered By: Lea Gibbons Admission Data Admit Date/Time: 03/25/23 21:46 Attending Provider: Preston Carlton Admit Provider: Sam Tran Primary Care Provider: PCP,NO Other Providers: Franny Fisher; Quentin Vee Other Interventions: Discharge Summary Assessment (RN) Last Done: 03/27/23 12:33 Supervising Physician Co-Signing Physician Notes The patient was not seen by me. The chart was reviewed. Case discussed with SB Viera. Agree with assessment and plan. She is medically stable for discharge home today, March 27 Coding Level of Care Code 07841 INP/OBS DISCH >30 MIN Diagnoses Cholangitis K83.09 Choledocholithiasis K80.50 Pancreatitis K85.90 Right upper quadrant abdominal pain R10.11 Acute epigastric pain R10.13 Abnormal LFTs R79.89 Elevated LFTs R79.89
--- NOTE | 2023-03-27 12:27 | Gastroenterology Progress Note ---
Date of Service March 27, 2023 Assessment & Plan (1) Pancreatitis: Plan: Likely gallstone pancreatitis though no evidence of stones or bile duct abnormalities on imaging. Continue LR at 200/hr. (2) Status post cholecystectomy: (3) Elevated LFTs: (4) Biliary colic: Plan - Advance diet to low-fat regular consistency. - Avoid aspirin and nonsteroidal anti-inflammatory medicines for 1 week. - Use broad spectrum antibiotics for 10 days. - Repeat ERCP in 6 weeks to remove stent. Our office will contact her to arrange. -When asked PCP to follow LFTs periodically to resolution No GI contraindication to discharge today. Admission and Anticipated Discharge Date Admission Date: March 25, 2023 Subjective Postprocedure day #1 from ERCP with sphincterotomy and stone extraction. She is post cholecystectomy in June 2022. Sitting up, tells me that she feels completely fine without any abdominal pain. Was able to tolerate clear liquids last evening and this morning without any nausea or pain afterwards. Passing gas Bilirubin similar to yesterday, transaminases and alk phos w mild improvement compared to yesterday. Review of Systems Review of Systems: ROS: Gen: Denies weakness, fevers, weight loss Eyes: No eye redness, or pain, no recent vision changes Resp: No SOB, no cough Cardio: No palpitations/irregular beats, no chest pain GI: As per HPI, otherwise (-) : Denies pain on urination Skin: No jaundice, itching or new rashes Physical Exam Constitutional: WD/WN, vitals as above Eyes: PERRL, conjunctivae normal, anicteric sclerae ENMT: external ear and nose normal, oropharynx normal Neck: trachea midline, no thyromegaly Respiratory: normal respiratory effort, lungs clear to auscultation Cardiovascular: RRR, no murmur, no edema Gastrointestinal (Abdomen): normal bowel sounds, soft, nontender, no hepatosplenomegaly Musculoskeletal: no cyanosis or clubbing, extremities motor strength 5/5 Skin: no rashes, warm and dry Neurologic: PERRL, EOMI, accommodation nl, no face palsy, no dysarthria Psychiatric: A+Ox3, euthymic affect Lymphatic: no cervical or axillary lymphadenopathy Results & Data Vital Signs (Past 12 Hours) Vital Signs Temp Pulse Resp BP Pulse Ox O2 Del Method 03/27/23 11:37 36.6 C 68 18 126/77 96 Room Air 03/27/23 08:04 36.6 C 72 16 128/80 96 Room Air 03/27/23 04:17 36.7 C 68 15 119/75 93 Room Air 03/27/23 00:28 36.6 C 69 15 124/84 96 Room Air Laboratory Results WBC 7, Hb 12, HCT 88, PLT S263, NA 139, K3.6, CL 109, CO2 23, BUN 4, CR 0.6, glucose 101. T. bili 5.9, D bili 3.5, AST 60, ALT 85, alk phos 218 lipase 122 Diagnostic Findings EUS yesterday prior to ERCP with 2 stones in the common bile duct 4 and 6 mm size.
== END 2023-03-27 13:13 | disposition home or self-care (01) | DRG 444 ==
LOC: ED 16:53 → 3N 21:46 → SUATTDRO 21:46 → 3N 22:21